=== PATIENT | male | born 1970 ===

== ENCOUNTER 2016-12-13 09:48 | Inpatient (IN) | payer MEDICAID ==
[2016-12-13] MEDS ORDERED: Sodium Chloride 0.9% 1,000 ML IV ONE (10:56)
[2016-12-13 11:17] LABS: BASO # 0.1 K/uL (0.0-0.2); EOS # 0.4 K/uL (0.0-0.7); EOS % 5.6 % (0.0-4.0); HEMATOCRIT 42.4 % (35.0-51.0); LYMPH # 1.5 K/uL (1.0-4.3); LYMPH % 18.7 % (20.0-40.0); MEAN CELL VOLUME 104.7 fL (80.0-94.0); MEAN CORPUSCULAR HGB CONC 33.4 g/dL (33.0-37.0); MEAN PLATELET VOLUME 7.3 fL (7.2-11.7); MONO % 12.5 % (0.0-10.0); RED CELL DISTRIBUTION WIDTH 14.1 % (11.5-14.5)
[2016-12-13] MEDS ORDERED: Sodium Chloride 0.9% 1,000 ML ONE (11:20)
[2016-12-13 11:21] LABS: URINE BILIRUBIN NEGATIVE (NEGATIVE); URINE BLOOD NEGATIVE (NEGATIVE); URINE COLOR Colorless (YELLOW); URINE GLUCOSE (UA) NORMAL (Normal); URINE KETONE NEGATIVE (NEGATIVE); URINE LEUKOCYTE ESTERASE NEG Leu/uL (Negative); URINE PROTEIN NEGATIVE (NEGATIVE); URINE UROBILINOGEN NORMAL mg/dL (0.2-1.0)
[2016-12-13 11:22] LABS: CHLORIDE 97 mmol/L (98-107); SODIUM 138 mmol/L (132-148)
[2016-12-13 11:24] LABS: BILIRUBIN,TOTAL 0.7 mg/dL (0.2-1.3); GFR AFRICAN-AMERICAN > 60
[2016-12-13 11:25] LABS: ALB/GLOB RATIO 1.7 (1.0-2.1); ALKALINE PHOSPHATASE 59 U/L (38-126); ALT/SGPT 89 U/L (21-72); AST/SGOT 124 U/L (17-59); BLOOD UREA NITROGEN 7 mg/dL (9-20); CALCIUM 8.6 mg/dl (8.6-10.4); CARBON DIOXIDE 24 mmol/L (22-30); GLUCOSE,RANDOM 94 mg/dL (75-110); TOTAL PROTEIN 8.6 g/dL (6.3-8.3)
[2016-12-13 11:26] LABS: ALCOHOL SERUM 265 mg/dl (0-10)
--- NOTE | 2016-12-13 12:26 | CT ---
PROCEDURE: CT HEAD WITHOUT CONTRAST. HISTORY: head injury two days ago r/o bleed COMPARISON: None available. TECHNIQUE: Axial computed tomography images were obtained through the head/brain without intravenous contrast. Radiation dose: Total exam DLP = 850.68 mGy-cm. This CT exam was performed using one or more of the following dose reduction techniques: Automated exposure control, adjustment of the mA and/or kV according to patient size, and/or use of iterative reconstruction technique. FINDINGS: HEMORRHAGE: No intracranial hemorrhage. BRAIN: No mass effect or edema. The haji-white matter differentiation appears intact. Please note that MRI with diffusion imaging is more sensitive in the detection of acute ischemic event. VENTRICLES: No hydrocephalus. CALVARIUM: Unremarkable. PARANASAL SINUSES: Unremarkable as visualized. No significant inflammatory changes. MASTOID AIR CELLS: Unremarkable as visualized. No inflammatory changes. OTHER FINDINGS: None. IMPRESSION: No acute intracranial pathology identified.
--- NOTE | 2016-12-13 12:37 | CT ---
CT orbits without IV contrast Indication: facial injuries, r/o orbital/facial fx Comparison: None available Technique: Axial computed tomography images were obtained of the orbits without the use of intravenous contrast. Coronal and sagittal reformatted images were generated and reviewed. This CT exam was performed using 1 or more of the falling dose reduction techniques: Automated exposure control, adjustment of the MAA and/or kV according to patient size, and/or use of iterative reconstruction technique. Radiation dose: Total exam DLP = 872.87 mGy-cm. Findings: The facial bones appear intact without acute fracture. The orbits appear intact. The temporomandibular joints are located. The mastoid air cells appear clear without air-fluid levels. Mild mucosal thickening of bilateral maxillary sinuses and ethmoid air cells. The remainder of the paranasal sinuses appear clear. No air-fluid levels. Limited visualization of the brain appears grossly unremarkable. Impression: No acute fracture identified. Incidental findings as above.
--- NOTE | 2016-12-13 12:57 | C.PDOC ---
History Of Present Illness 46-year-old male presents to the emergency department requesting detox from alcohol. Patients last drink was at 04:00 this morning. Patient has Hx of withdrawal seizures, and he had one two days ago - fell on his face a the tune. Patient currently complaining of a headache. He denies sensory changes, extremity weakness, fever, chest pain, SOB, abdominal pain, nausea/vomiting. Time Seen by Provider: 12/13/16 10:23 Chief Complaint (Nursing): Substance Abuse History Per: Patient History/Exam Limitations: no limitations Modifying Factor(s): Alcohol Severity: Moderate Past Medical History Reviewed: Historical Data, Nursing Documentation, Vital Signs Vital Signs: Last Vital Signs Temp 97.9 F 12/18/16 13:08 Pulse 83 12/18/16 13:08 Resp 18 12/18/16 13:08 BP 124/83 12/18/16 13:08 Pulse Ox 99 12/18/16 13:08 - Medical History PMH: Seizures (alcohol induced) Family History: States: No Known Family Hx - Social History Hx Alcohol Use: Yes Hx Substance Use: Yes - Immunization History Hx Tetanus Toxoid Vaccination: No Review Of Systems Except As Marked, All Systems Reviewed And Found Negative. Cardiovascular: Negative for: Chest Pain, Palpitations Respiratory: Negative for: Shortness of Breath Gastrointestinal: Negative for: Nausea, Vomiting, Abdominal Pain, Diarrhea Musculoskeletal: Negative for: Neck Pain, Back Pain Neurological: Positive for: Seizures, Headache. Negative for: Weakness, Numbness, Incoordination, Change in Speech, Confusion, Altered Mental Status, Dizziness Physical Exam - Physical Exam Appears: Well, Non-toxic, No Acute Distress Skin: Warm, Dry, No Rash, Other Head: Normacephalic, No Swelling, No Laceration, Other (B/L periorbital echymoses, nontender to palpation) Eye(s): bilateral: Normal Inspection, PERRL, EOMI (No pain with EOM movement.), Other (Subconjunctival hemorrhages B/L) Ear(s): Bilateral: Other ((-) Ibarra sign) Nose: Normal, No Epistaxis, No Deformity, No Tenderness Tongue: Normal Appearing, No Laceration Lips: Normal Appearing, No Laceration Neck: Normal, Normal ROM, No Midline Cervical Tenderness, No Paracervical Tenderness, No Step Off Deformity, Supple Cardiovascular: Rhythm Regular Respiratory: Normal Breath Sounds, No Rales, No Rhonchi, No Wheezing Extremity: Normal ROM, No Tenderness, No Deformity, No Swelling Extremity: Bilateral: Normal Color And Temperature, Normal ROM Neurological/Psych: Oriented x3 Gait: Steady ED Course And Treatment - Laboratory Results Result Diagrams: 12/13/16 11:03 12/13/16 11:03 O2 Sat by Pulse Oximetry: 100 (RA) Pulse Ox Interpretation: Normal - CT Scan/US ct head' Other Rad Studies (CT/US): Read By Radiologist, Radiology Report Reviewed CT/US Interpretation: Accession No. : [id number]. Patient Name / ID : CHIKI KEYES / [id number]. Exam Date : 12/13/2016 11:47:44 ( Approved ). Study Comment : Sex / Age : M / 46Y. Creator : Debby Davidson MD. Dictator : Debby Davidson MD. Structural Steel Erector : Chucking Machine Set Up Operator Tool : Debby Davidson MD. Approver2 : Report Date : 12/13/2016 12:24:35. My Comment : . PROCEDURE: CT HEAD WITHOUT CONTRAST. HISTORY: head injury two days ago r/o bleed. COMPARISON: None available. TECHNIQUE: Axial computed tomography images were obtained through the head/brain without intravenous contrast. Radiation dose: Total exam DLP = 850.68 mGy-cm. This CT exam was performed using one or more of the following dose reduction techniques: Automated exposure control, adjustment of the mA and/or kV according to patient size, and/ or use of iterative reconstruction technique. FINDINGS: HEMORRHAGE: No intracranial hemorrhage. BRAIN: No mass effect or edema. The haji-white matter differentiation appears intact. Please note that MRI with diffusion imaging is more sensitive in the detection of acute ischemic event. VENTRICLES : No hydrocephalus. CALVARIUM: Unremarkable. PARANASAL SINUSES: Unremarkable as visualized. No significant inflammatory changes. MASTOID AIR CELLS: Unremarkable as visualized. No inflammatory changes. OTHER FINDINGS: None. IMPRESSION: No acute intracranial pathology identified. CT ORBIT Other Rad Studies (CT/US): Read By Radiologist, Radiology Report Reviewed CT/US Interpretation: Accession No. : [id number]. Patient Name / ID : CHIKI KEYES / [id number]. Exam Date : 12/13/2016 11:50:23 ( Approved ). Study Comment : Sex / Age : M / 46Y. Creator : Debby Davidson MD. Dictator : Debby Davidson MD. Structural Steel Erector : Chucking Machine Set Up Operator Tool : Debby Davidson MD. Approver2 : Report Date : 12/13/2016 12:35:32. My Comment : . CT orbits without IV contrast. Indication: facial injuries, r/o orbital/ facial fx. Comparison: None available. Technique: Axial computed tomography images were obtained of the orbits without the use of intravenous contrast. Coronal and sagittal reformatted images were generated and reviewed. This CT exam was performed using 1 or more of the falling dose reduction techniques: Automated exposure control, adjustment of the MAA and/or kV according to patient size, and/or use of iterative reconstruction technique. Radiation dose : Total exam DLP = 872.87 mGy-cm. Findings: The facial bones appear intact without acute fracture. The orbits appear intact. The temporomandibular joints are located. The mastoid air cells appear clear without air-fluid levels. Mild mucosal thickening of bilateral maxillary sinuses and ethmoid air cells. The remainder of the paranasal sinuses appear clear. No air-fluid levels. Limited visualization of the brain appears grossly unremarkable. Impression: No acute fracture identified. Incidental findings as above. Progress Note: Blood work, UA, UDS, CT head/facial bones ordered and reviewed. Patient given IV Ns bolus, PO Librium. 12:55pm- Patient medically cleared. Pending crisis. 03:54PM- Patient discussed w/ crisis counselor, Mariel. States patient accepted for alcohol detox admission by Dr. Real. Disposition - Disposition Disposition: HOSPITALIZED Disposition Time: 15:56 Condition: STABLE - POA Present On Arrival: Falls Or Trauma - Clinical Impression Clinical Impression: Alcohol dependence, Closed head injury - Scribe Statement The provider has reviewed the documentation as recorded by the Scribsumeet Garcia All medical record entries made by the Scribe were at my direction and personally dictated by me. I have reviewed the chart and agree that the record accurately reflects my personal performance of the history, physical exam, medical decision making, and the department course for this patient. I have also personally directed, reviewed, and agree with the discharge instructions and disposition. Decision To Admit - Pt Status Changed To: Hospital Disposition Of: Inpatient - Admit Certification Admit to Inpatient:: After my assessment, the patient will require hospitalization for at least two midnights. This is because of the severity of symptoms shown, intensity of services needed, and/or the medical risk in this patient being treated as an outpatient. - InPatient: Physician Admission Certification: I certify that this patient requires 2 or more midnights of care for the following reason:: see notes - . Bed Request Type: Detox Admitting Physician: Martine Real Patient Diagnosis: Alcohol dependence
[2016-12-13] MEDS: Multiple Vitamins Tab PO SCH (17:25)
[2016-12-14] MEDS: Multiple Vitamins Tab PO SCH (08:59)
--- NOTE | 2016-12-14 13:50 | PCM.PSYCH ---
Initial Psychiatric Evaluation - Initial Psychiatric Evaluation Type of Admission: Voluntary Legal Status: Capacity Chief Complaint (in patient's own words): "I need to stop drinking" History of Present Illness and Precipitating Events: The patient is seen, chart reviewed and case discussed. This is a 46-year-old male, single with 2 children aged 18 and 27. The patient lives with his mother in [place] and he is on Social Security. He used to work as a cook about 3 years ago. The patient is here for alcohol detox and he was drinking 1 pint of vodka and half case of beer. He states he started drinking when he was 9 years old and had more than 10 detoxes and 10 rehabs. He doesn't go to AA. His longest sobriety was a little bit more than a year. He had seizures during wdw. He also smokes 1 pack per day cigarettes. He use to use heroine but he states he quit and last use was couple of years ago. Past psych history: Denies Family psych history: Denies Medical history: Alcohol-related seizures. He had shiners because of fall from seizures but had an orbital CT scan negative. Current Medications: Active Medications Generic Name Dose Route Start Last Admin Trade Name Freq PRN Reason Stop Dose Admin Chlordiazepoxide 25 mg 12/13/16 18:00 12/14/16 12:47 Librium PO 12/17/16 17:59 25 mg Q6 ADAM Administration Taper Chlordiazepoxide 25 mg 12/13/16 16:21 12/14/16 08:59 Librium PO 25 mg Q4H PRN Administration Alcohol Withdrawal Clonidine HCl 0.1 mg 12/13/16 16:21 Catapres PO Q4H PRN Symptoms of alcohol withdrawl Folic Acid 1 mg 12/13/16 16:30 12/14/16 08:59 Folic Acid PO 1 mg DAILY ADAM Administration Gabapentin 300 mg 12/13/16 18:00 12/14/16 08:59 Neurontin PO 300 mg BID ADAM Administration Hydroxyzine HCl 50 mg 12/13/16 16:22 Atarax PO Q6H PRN Anxiety Ibuprofen 600 mg 12/13/16 16:22 12/14/16 08:59 Motrin Tab PO 600 mg Q6H PRN Administration Pain, moderate (4-7) Multivitamins 1 tab 12/13/16 16:30 12/14/16 08:59 Hexavitamin PO 1 tab DAILY ADAM Administration Nicotine 1 patch 12/14/16 10:45 12/14/16 10:39 Nicoderm Cq TD 1 patch DAILY ADAM Administration Quetiapine Fumarate 50 mg 12/14/16 22:00 Seroquel PO HS ADAM Thiamine HCl 100 mg 12/13/16 16:30 12/14/16 08:59 Vitamin B1 Tab PO 100 mg DAILY ADAM Administration Trazodone HCl 100 mg 12/13/16 16:30 12/14/16 00:04 Desyrel PO 100 mg HS PRN Administration Insomnia Past Psychiatric History - Past Psychiatric History Previous Treatment History: None Pertinent Medical Hx (Current Medical&Sleep Prob, Allergies): Allergies Allergy/AdvReac Type Severity Reaction Status Date / Time No Known Allergies Allergy Verified 12/13/16 09:51 No Known Home Med 12/13/16 Review of Systems - Neurological Neurological: UNREMARKABLE - Psychiatric Psychiatric: Abnormal Sleep Pattern, Anxiety. absent: Hallucinations, Homicidal Ideation, Suicidal Ideation Mental Status Examination - Personal Presentation Personal Presentation: Looks older than stated age - Affect Affect: Constricted - Motor Activity Motor Activity: Calm - Reliability in Providing Information Reliability in Providing Information: Fair - Speech Speech: Organized - Mood Mood: Anxious - Formal Thought Process Formal Thought Process: No Impairment - Cognitive Functions Orientation: Person, Place, Situation, Time Sensorium: Alert Attention/Concentration: Easily distracted Estimate of Intelligence: Average Judgement: Intact, as evidence by: Insight regarding need for hospitalization Memory: Recent intact, as evidence by: Ability to recall events of the day, Remote impaired as evidenced by: Inability to recall historical events - Risk Risk: Seizure, Withdrawal, Diminished functioning - Strength & Assets Inventory Strength & Assets Inventory: Cooperative - Limitations Limitations: Living alone DSM 5 DX - DSM 5 DSM 5 Diagnosis: Alcohol withdrawal Alcohol use d/o - severe Tobacco use d/o - severe Opioid use d/o - in remission - Recommended/Plan of Treatment Treatment Recommendations and Plan of Treatment: Alcohol: Librium detox Gabapentin As needed meds gabapentin Attend groups and activities. MT and CBT Tobacco: Patch MT for abstinence 33 min Projected ELOS: 4 days Prognosis: good Discharge Plan and Discharge Criteria: No wdw sxs refer to IOP or rehab, consider naltrexone/vivitrol or topamax - Smoking Cessation Smoking Cessation Initiated: Yes
[2016-12-15] MEDS: Multiple Vitamins Tab PO SCH (09:04)
--- NOTE | 2016-12-15 15:32 | PCM.PYCHPN ---
Psychiatric Progress Note - Psychiatric Progress Note Patient seen today, length of contact: 16 min Patient Chief Complaint: "I am anxious" Problems Identified/Issues Discussed: The pt is seen, chart reviewed, case discussed with staff. The pt is compliant with medications and reports no side-effects. Symptoms are improving but needs more time to stabilize. He has witnessed another pt's seizure and that made him more anxious. Support given After care discussed, support and psychoeducation given. Medication Change: Yes Medical Record Reviewed: Yes Mental Status Examination - Cognitive Function Orientation: Person, Place, Situation, Time Memory: Intact Attention: WNL Concentration: Poor Association: WNL Fund of Knowledge: WNL - Mood Mood: Anxious - Affect Affect: Constricted - Speech Speech: Appropriate - Formal Thought Process Formal Thought Process: No Impairment - Suicidal Ideation Suicidal Ideation: No - Homicidal Ideation Homicidal Ideation: No Goal/Treatment Plan - Goal/Treatment Plan Need for Continued Stay: Discharge may exacerbated symptoms, Severe functional impairment Progress Toward Problem(s) and Goals/Treatment Plan: Alcohol: Librium detox Gabapentin As needed meds gabapentin Attend groups and activities. AK and CBT Tobacco: Patch AK for abstinence Estimated Date of D/C: 12/18/16
[2016-12-16] MEDS: Multiple Vitamins Tab PO SCH (09:32)
--- NOTE | 2016-12-16 12:10 | PCM.PYCHPN ---
Psychiatric Progress Note - Psychiatric Progress Note Patient seen today, length of contact: 17 min Patient Chief Complaint: "Still withdrawing" Problems Identified/Issues Discussed: The pt is seen, chart reviewed, case discussed with staff. The pt is compliant with medications and reports no side-effects. Symptoms of withdrawal are slowly improving but needs more time to stabilize. Detox schedule is adjusted to continue one more day as he is still very shaky and even somewhat more confused/forgetful today. After care discussed, support and psychoeducation given. Not as depressed or anxious. Medication Change: Yes (detox changes daily) Medical Record Reviewed: Yes Mental Status Examination - Cognitive Function Orientation: Person, Place, Situation, Time Memory: Intact Attention: WNL Concentration: Poor Association: WNL Fund of Knowledge: WNL - Mood Mood: Anxious - Affect Affect: Constricted - Speech Speech: Appropriate - Formal Thought Process Formal Thought Process: No Impairment - Suicidal Ideation Suicidal Ideation: No - Homicidal Ideation Homicidal Ideation: No Goal/Treatment Plan - Goal/Treatment Plan Need for Continued Stay: Discharge may exacerbated symptoms, Severe functional impairment Progress Toward Problem(s) and Goals/Treatment Plan: Alcohol: Librium detox adjusted Gabapentin As needed meds gabapentin Attend groups and activities. NM and CBT Tobacco: Patch NM for abstinence Estimated Date of D/C: 12/18/16
[2016-12-17] MEDS: Multiple Vitamins Tab PO SCH (09:23)
--- NOTE | 2016-12-17 13:16 | PCM.PYCHPN ---
Psychiatric Progress Note - Psychiatric Progress Note Patient seen today, length of contact: 16 min Patient Chief Complaint: "Shaky" Problems Identified/Issues Discussed: The pt is seen, chart reviewed and case discussed. The pt is improving SLOWY with medications and has breakthru sxs. Detox adjusted again, to end on Tuesday am. No SEs from meds Support and psychoed given IL and CBt used After care discussed Medication Change: Yes (detox changes daily) Medical Record Reviewed: Yes Mental Status Examination - Cognitive Function Orientation: Person, Place, Situation, Time Memory: Intact Attention: WNL Concentration: Poor Association: WNL Fund of Knowledge: WNL - Mood Mood: Anxious - Affect Affect: Constricted - Speech Speech: Appropriate - Formal Thought Process Formal Thought Process: No Impairment - Suicidal Ideation Suicidal Ideation: No - Homicidal Ideation Homicidal Ideation: No Goal/Treatment Plan - Goal/Treatment Plan Need for Continued Stay: Discharge may exacerbated symptoms, Severe functional impairment Progress Toward Problem(s) and Goals/Treatment Plan: Alcohol: Librium detox adjusted Gabapentin As needed meds gabapentin Attend groups and activities. IL and CBT Tobacco: Patch IL for abstinence Estimated Date of D/C: 12/19/16
--- NOTE | 2016-12-18 08:18 | PCM.PYCHPN ---
Psychiatric Progress Note - Psychiatric Progress Note Patient seen today, length of contact: 16 min Patient Chief Complaint: I'm having withdrawal symptoms Problems Identified/Issues Discussed: Patient seen and evaluated, chart reviewed and discussed with the nurse. Patient reports improvement in his anxiety and withdrawal symptoms. However he still reports shakes and headaches. He denies any depressive or psychotic symptoms. He is taking medications and denies any side effects. Patient is scheduled to be discharge tomorrow. Supportive therapy was given. Medication Change: Yes (detox changes daily) Medical Record Reviewed: Yes Mental Status Examination - Cognitive Function Orientation: Person, Place, Situation, Time Memory: Intact Attention: WNL Concentration: Poor Association: WNL Fund of Knowledge: WNL - Mood Mood: Anxious - Affect Affect: Constricted - Speech Speech: Appropriate, Soft - Formal Thought Process Formal Thought Process: No Impairment - Suicidal Ideation Suicidal Ideation: No - Homicidal Ideation Homicidal Ideation: No Goal/Treatment Plan - Goal/Treatment Plan Need for Continued Stay: Discharge may exacerbated symptoms, Severe functional impairment Progress Toward Problem(s) and Goals/Treatment Plan: Alcohol: Librium detox adjusted Gabapentin As needed meds gabapentin Attend groups and activities. AK and CBT Tobacco: Patch AK for abstinence Estimated Date of D/C: 12/19/16 - Smoking Cessation Smoking Cessation Initiated: No
[2016-12-18] MEDS: Multiple Vitamins Tab PO SCH (09:02)
[2016-12-19] MEDS: Multiple Vitamins Tab PO SCH (09:16)
[2016-12-19 10:33] VITALS: RESP 18; TEMP 98.1; O2SAT 97
[2016-12-19 13:41] VITALS: BP 120/87; PULSE 90
--- NOTE | 2016-12-19 13:45 | PCM.PYCHDC ---
Mental Status Examination - Mental Status Examination Orientation: Person, Place, Situation, Time Memory: Intact Mood: Neutral Affect: Constricted Speech: Soft Attention: WNL Concentration: WNL Association: WNL Fund of Knowledge: WNL Formal Thought Process: No Impairment Description of patient's judgement and insight: GOOD, FAIR Psychotic Thoughts and Behaviors: Denies any AVH Suicidal Ideation: No Current Homicidal Ideation?: No Discharge Summary - Discharge Note Reason for Hospitalization: The patient is seen, chart reviewed and case discussed. This is a 46-year-old male, single with 2 children aged 18 and 27. The patient lives with his mother in [place] and he is on Social Security. He used to work as a cook about 3 years ago. The patient is here for alcohol detox and he was drinking 1 pint of vodka and half case of beer. He states he started drinking when he was 9 years old and had more than 10 detoxes and 10 rehabs. He doesn't go to AA. His longest sobriety was a little bit more than a year. He had seizures during wdw. He also smokes 1 pack per day cigarettes. He use to use heroine but he states he quit and last use was couple of years ago. Consultations:: List each consultation separately and include: 1. Reason for request. 2. Findings. 3. Follow-up Summary of Hospital Course include:: 1. Description of specific treatment plan utilized for patients during their course of treatmen. 2. Summarize the time- course for resolution of acute symptoms and/or regressed behaviors. 3. Describe issues identified and worked on during hospitalization. 4. Describe medication utilized. 5. Describe medical problems identified and treated. 6. Reassessment of suicide risk Summary of Hospital Course: During the course of his stay, patient (pt) started progressively improving and he no longer remained anxious and irritable. He tolerated the withdrawal protocol very well. He didnt have any shakes, sweating, tremors or cramps or any other withdrawal symptoms upon discharge. He started attending groups and meetings and started socializing. He denied any feelings of hopelessness, helplessness, and worthlessness, denied any problem with the sleep or appetite, denied suicidal ideation or homicidal ideation. Pt denied any auditory or visual hallucinations. Patient remained calm and cooperative and remained compliant with the medications. Patient tolerated the detox medications very well and denied any side effects. - Final Diagnosis (DSM 5) Condition upon Discharge: STABLE DSM 5: Alcohol withdrawal Alcohol use d/o - severe Tobacco use d/o - severe Opioid use d/o - in remission Disposition: HOME/ ROUTINE Follow-up Treatment Plan: Education: Pt was educated and counseled about the risks and benefits of taking and not taking medications. Pt was educated and counseled about the risks of drinking and abusing drugs. Pt was educated and counseled to go to the ER or call 911 if pt develop suicidal ideation or homicidal ideation, worsening of symptoms or severe side effects of the meds. Prescriptions/Medication Reconciliation: Gabapentin [Neurontin] 400 mg PO TID #90 cap QUEtiapine [SEROquel] 50 mg PO HS #30 tab traZODone [Desyrel] 100 mg PO HS PRN #30 tab PRN Reason: Insomnia - Smoking Cessation Smoking Cessation Medication prescribed: No - Antipsychotic Medications Pt discharged on 2 or more routine antipsychotic medications: No
== END 2016-12-19 13:15 | disposition home or self-care (01) | DRG 744 ==
LOC: C.ER 09:48 → C.7D 15:56
PROVIDERS: ADMIT Psychiatry & Neurology Psychiatry; ATTEND Psychiatry & Neurology Psychiatry
PROC: HZ2ZZZZ Detoxification Services for Substance Abuse Treatment (ICD-10-PCS; principal; 2016-12-13)
PROC: HZ46ZZZ Group Counseling for Substance Abuse Treatment, Psychoeducation (ICD-10-PCS; 2016-12-13)
PROC: HZ90ZZZ Pharmacotherapy for Substance Abuse Treatment, Nicotine Replacement (ICD-10-PCS; 2016-12-13)
DX: F10.230 Alcohol dependence with withdrawal, uncomplicated (principal); F11.21 Opioid dependence, in remission; F17.210 Nicotine dependence, cigarettes, uncomplicated; S09.90XA Unspecified injury of head, initial encounter; R56.9 Unspecified convulsions; W19.XXXA Unspecified fall, initial encounter; F41.9 Anxiety disorder, unspecified; Z91.81 History of falling; Y92.9 Unspecified place or not applicable

== ENCOUNTER 2017-05-27 20:29 | Emergency (ER) | payer SELFPAY ==
--- NOTE | 2017-05-27 20:45 | C.PDOC ---
History Of Present Illness Patient brought in via EMS after being found intoxicated in public. Patient states he thinks he might have fallen over and hit his head. Denies headache, dizziness, or vomiting. Time Seen by Provider: 05/27/17 20:44 Chief Complaint (Nursing): Substance Abuse History Per: Patient History/Exam Limitations: no limitations Onset/Duration Of Symptoms: Hrs Current Symptoms Are (Timing): Still Present Suicide/Self Injury Attempted (Context): None Modifying Factor(s): Alcohol Severity: Mild Pain Scale Rating Of: 2 Associated Symptoms: denies: Depression, Suicidal Thoughts, Suicidal Plan Involuntary Hold By: None Recent travel outside of the [place]: No Past Medical History Reviewed: Historical Data, Nursing Documentation, Vital Signs Vital Signs: Last Vital Signs Temp 97.9 F 05/27/17 23:47 Pulse 89 05/27/17 23:47 Resp 20 05/27/17 23:47 BP 113/79 05/27/17 23:47 Pulse Ox 99 05/27/17 23:47 - Medical History PMH: Seizures (alcohol induced) Surgical History: No Surg Hx - [facility] Procedures DETOXIFICATION SERVICES FOR SUBSTANCE ABUSE TREATMENT (12/13/16) GROUP JOB PRINTER FOR SUBSTANCE ABUSE TREATMENT, PSYCHOEDUCATION (12/13/16) PHARMACOTHERAPY FOR SUBSTANCE ABUSE, NICOTINE REPLACE (12/13/16) Family History: States: No Known Family Hx - Social History Hx Alcohol Use: Yes Hx Substance Use: Yes - Immunization History Hx Tetanus Toxoid Vaccination: No Review Of Systems Gastrointestinal: Negative for: Nausea, Vomiting Neurological: Negative for: Headache, Dizziness Physical Exam - Physical Exam Appears: Non-toxic, No Acute Distress, Other (ETOH on breath) Skin: Warm, Dry Head: Normacephalic, Abrasion (Small over forehead) Oral Mucosa: Moist Chest: Symmetrical Cardiovascular: Rhythm Regular Respiratory: No Rales, No Rhonchi, No Wheezing Gastrointestinal/Abdominal: Soft, No Tenderness Neurological/Psych: Oriented x3 ED Course And Treatment - Laboratory Results Result Diagrams: 05/27/17 20:59 05/27/17 20:59 O2 Sat by Pulse Oximetry: 96 (Room air) Pulse Ox Interpretation: Normal Progress Note: CT head, CT orbits/facials, blood work, and urinalysis ordered. Reevaluation Time: 05:22 Reassessment Condition: Improved Disposition Counseled Patient/Family Regarding: Studies Performed, Diagnosis, Need For Followup - Disposition Referrals: [facility] [Outside] Disposition: HOME/ ROUTINE Disposition Time: 20:45 Condition: FAIR Instructions: Alcohol Intoxication (DC) Forms: [facility] (Portuguese) - Clinical Impression Clinical Impression: Alcohol dependence, Alcohol intoxication - Scribe Statement The provider has reviewed the documentation as recorded by the Scribe Ant Sadler All medical record entries made by the Scribe were at my direction and personally dictated by me. I have reviewed the chart and agree that the record accurately reflects my personal performance of the history, physical exam, medical decision making, and the department course for this patient. I have also personally directed, reviewed, and agree with the discharge instructions and disposition.
[2017-05-27 21:06] LABS: BASO # 0.1 K/uL (0.0-0.2); BASO % 1.3 % (0.0-2.0); EOS # 0.2 K/uL (0.0-0.7); EOS % 2.9 % (0.0-4.0); HEMATOCRIT 40.2 % (35.0-51.0); LYMPH # 0.9 K/uL (1.0-4.3); LYMPH % 15.9 % (20.0-40.0); MEAN CELL VOLUME 103.3 fL (80.0-94.0); MEAN CORPUSCULAR HEMOGLOBIN 34.6 pg (27.0-31.0); MEAN CORPUSCULAR HGB CONC 33.5 g/dL (33.0-37.0); MEAN PLATELET VOLUME 7.2 fL (7.2-11.7); MONO # 0.5 K/uL (0.0-0.8); MONO % 9.9 % (0.0-10.0); NRBC % 0.1 % (0.0-2.0); RED CELL DISTRIBUTION WIDTH 13.4 % (11.5-14.5); WHITE BLOOD COUNT 5.4 K/uL (4.8-10.8)
[2017-05-27 21:16] LABS: URINE BACTERIA RARE (<OCC); URINE BILIRUBIN NEGATIVE (NEGATIVE); URINE COLOR Straw (YELLOW); URINE GLUCOSE (UA) NORMAL (Normal); URINE KETONE NEGATIVE (NEGATIVE); URINE LEUKOCYTE ESTERASE NEG Leu/uL (Negative); URINE PROTEIN NEGATIVE (NEGATIVE); URINE UROBILINOGEN NORMAL mg/dL (0.2-1.0)
[2017-05-27 21:19] LABS: URINE BLOOD TRACE (NEGATIVE)
[2017-05-27 21:51] LABS: ALB/GLOB RATIO 1.5 (1.0-2.1); ALKALINE PHOSPHATASE 83 U/L (38-126); ALT/SGPT 87 U/L (21-72); AST/SGOT 161 U/L (17-59); BILIRUBIN,TOTAL 0.8 mg/dL (0.2-1.3); BLOOD UREA NITROGEN 16 mg/dL (9-20); CALCIUM 7.8 mg/dl (8.6-10.4); CARBON DIOXIDE 21 mmol/L (22-30); CHLORIDE 100 mmol/L (98-107); GFR AFRICAN-AMERICAN > 60; GLUCOSE,RANDOM 95 mg/dL (75-110); POTASSIUM 3.8 mmol/L (3.6-5.2); SODIUM 140 mmol/L (132-148); TOTAL PROTEIN 7.8 g/dL (6.3-8.3)
[2017-05-27 22:09] LABS: ALCOHOL SERUM 416 mg/dl (0-10)
--- NOTE | 2017-05-27 22:58 | CT ---
EXAM: CT Head Without Intravenous Contrast EXAM DATE/TIME: 05/27/2017 8:45 PM CLINICAL HISTORY: 46 years old, male; Injury or trauma; Fall; Initial encounter; Abrasion; Forehead TECHNIQUE: Axial computed tomography images of the head/brain without intravenous contrast. All CT scans at this facility use one or more dose reduction techniques, viz.: automated exposure control; ma/kV adjustment per patient size (including targeted exams where dose is matched to indication; i.e. head); or iterative reconstruction technique. COMPARISON: No relevant prior studies available. FINDINGS: Frontal atrophy is present. No intracranial hemorrhage. No intracranial edema. Trace mucosal thickening in the ethmoid sinuses. No fluid in the mastoid air cells. No depressed fractures. IMPRESSION: No acute intracranial injury.
--- NOTE | 2017-05-27 23:33 | CT ---
EXAM: CT Orbits Without Intravenous Contrast EXAM DATE/TIME: 05/27/2017 8:45 PM CLINICAL HISTORY: 46 years old, male; Injury or trauma; Fall; Initial encounter; Concussion /head injury; Loss of consciousness TECHNIQUE: Axial computed tomography images of the orbits without intravenous contrast. All CT scans at this facility use one or more dose reduction techniques, viz.: automated exposure control; ma/kV adjustment per patient size (including targeted exams where dose is matched to indication; i.e. head); or iterative reconstruction technique. COMPARISON: No relevant prior studies available. FINDINGS: Trace mucosal thickening of the maxillary and ethmoid sinuses. No fractures. Small subcutaneous soft tissue swelling at the base of the mandible. IMPRESSION: No acute findings.
[2017-05-28 06:08] VITALS: BP 122/73; PULSE 75; RESP 16; TEMP 98.5; O2SAT 97
== END 2017-05-28 06:44 | disposition home or self-care (01) ==
LOC: C.ER 20:29
DX: F10.229 Alcohol dependence with intoxication, unspecified (principal); Y90.8 Blood alcohol level of 240 mg/100 ml or more
CPT/HCPCS: 70450; 70480; 80053; 81001; 85025; 99285; G0480

== ENCOUNTER 2017-08-08 09:32 | Inpatient (IN) | payer MEDICAID, OTHER ==
--- NOTE | 2017-08-08 10:13 | C.PDOC ---
History Of Present Illness 46 yo male, hx of seizures, presetns with requesting detox. last drank and used last night at 10 pm. feels "a little shaky". uses heroin and alcohol. no si/hi/ hallucinations. no other complaints Time Seen by Provider: 08/08/17 09:49 Chief Complaint (Nursing): Substance Abuse Past Medical History Reviewed: Historical Data, Nursing Documentation, Vital Signs Vital Signs: Last Vital Signs Temp 98.0 F 08/08/17 13:25 Pulse 78 08/08/17 13:25 Resp 16 08/08/17 13:25 BP 138/79 08/08/17 13:25 Pulse Ox 100 08/08/17 17:27 - Medical History PMH: Seizures (alcohol induced) Denies: Diabetes, Hepatitis, HIV, HTN, Chronic Kidney Disease, Sexually Transmitted Disease - [facility] Procedures DETOXIFICATION SERVICES FOR SUBSTANCE ABUSE TREATMENT (12/13/16) GROUP PURSE SEINING HAND FOR SUBSTANCE ABUSE TREATMENT, PSYCHOEDUCATION (12/13/16) PHARMACOTHERAPY FOR SUBSTANCE ABUSE, NICOTINE REPLACE (12/13/16) Family History: States: Unknown Family Hx - Social History Hx Alcohol Use: Yes Hx Substance Use: Yes (heroin) - Immunization History Hx Tetanus Toxoid Vaccination: No Review Of Systems Except As Marked, All Systems Reviewed And Found Negative. Physical Exam - Physical Exam Appears: Well, No Acute Distress Skin: Normal Color, Warm, Dry Eye(s): bilateral: Normal Inspection, PERRL, EOMI Nose: Normal Throat: Normal Neck: Normal Cardiovascular: Rhythm Regular Respiratory: Normal Breath Sounds Gastrointestinal/Abdominal: Normal Exam Back: Normal Inspection Extremity: Normal ROM Neurological/Psych: Oriented x3, Normal Speech, Normal Cognition, Normal Cranial Nerves, Normal Motor, Normal Sensation, Other (no tremors) ED Course And Treatment - Laboratory Results Result Diagrams: 08/08/17 10:32 08/08/17 10:32 O2 Sat by Pulse Oximetry: 100 Medical Decision Making Medical Decision Making: requseting detox- labs pending for medical clearance 320: medically cleared, observed 6 hours. clinically sober, cooperative, additional librium dosed as per dr alcala. Disposition - Disposition Disposition: HOSPITALIZED Disposition Time: 04:00 Condition: STABLE - Clinical Impression Clinical Impression: Alcohol dependence Decision To Admit - Pt Status Changed To: Hospital Disposition Of: Inpatient - Admit Certification Admit to Inpatient:: After my assessment, the patient will require hospitalization for at least two midnights. This is because of the severity of symptoms shown, intensity of services needed, and/or the medical risk in this patient being treated as an outpatient. - InPatient: Physician Admission Certification: I certify that this patient requires 2 or more midnights of care for the following reason:: needs detox - . Bed Request Type: Detox Admitting Physician: Martine Alcala Patient Diagnosis: Alcohol dependence
[2017-08-08 10:43] LABS: BASO # 0.1 K/uL (0.0-0.2); BASO % 1.3 % (0.0-2.0); EOS # 0.1 K/uL (0.0-0.7); EOS % 1.3 % (0.0-4.0); HEMOGLOBIN 14.7 g/dL (12.0-18.0); LYMPH # 0.5 K/uL (1.0-4.3); LYMPH % 10.2 % (20.0-40.0); MEAN CELL VOLUME 104.2 fL (80.0-94.0); MEAN CORPUSCULAR HEMOGLOBIN 36.3 pg (27.0-31.0); MEAN CORPUSCULAR HGB CONC 34.9 g/dL (33.0-37.0); MEAN PLATELET VOLUME 6.8 fL (7.2-11.7); MONO # 0.6 K/uL (0.0-0.8); MONO % 11.9 % (0.0-10.0); NEUT # 3.7 K/uL (1.8-7.0); NEUT % 75.3 % (50.0-75.0); NRBC % 0.1 % (0.0-2.0); RBC 4.05 Mil/uL (4.40-5.90); RED CELL DISTRIBUTION WIDTH 13.2 % (11.5-14.5); WHITE BLOOD COUNT 4.9 K/uL (4.8-10.8)
[2017-08-08 10:45] LABS: URINE BILIRUBIN NEGATIVE (NEGATIVE); URINE BLOOD NEGATIVE (NEGATIVE); URINE CLARITY Clear (Clear); URINE COLOR Colorless (YELLOW); URINE GLUCOSE (UA) NORMAL (Normal); URINE LEUKOCYTE ESTERASE NEG Leu/uL (Negative); URINE NITRATE NEGATIVE (NEGATIVE); URINE PROTEIN NEGATIVE (NEGATIVE); URINE UROBILINOGEN NORMAL mg/dL (0.2-1.0)
[2017-08-08 10:57] LABS: ALB/GLOB RATIO 1.2 (1.0-2.1); ALBUMIN 4.5 g/dL (3.5-5.0); ALT/SGPT 52 U/L (21-72); AST/SGOT 82 U/L (17-59); BLOOD UREA NITROGEN 6 mg/dL (9-20); CALCIUM 8.9 mg/dl (8.6-10.4); GFR AFRICAN-AMERICAN > 60; GFR NON-AFRICAN AMERICAN > 60
[2017-08-08 11:34] LABS: BARBITURATES, UR NEGATIVE (NEGATIVE); BENZODIAZEPINES, UR NEGATIVE (NEGATIVE); PHENCYCLIDINE, UR NEGATIVE (NEGATIVE)
[2017-08-08 11:54] LABS: OPIATES, UR POSITIVE (NEGATIVE)
--- NOTE | 2017-08-08 16:03 | PCM.BM ---
<Gisela May - Last Filed: 08/08/17 16:01> Treatment Plan Problems - Problems identified on initial assessmt potiential for autonomic instability related to alcohol withdrawal Date Initiated: 08/08/17 Time Initiated: 16:02 Date resolved: 08/08/17 Assessment reference: NA Status: Active potiential for opiate withdrawal Date Initiated: 08/08/17 Time Initiated: 16:02 Date resolved: 08/08/17 Assessment reference: NA Status: Active Treatment assets and liabiliti Patient Assests: ADL independent, physically healthy Patient Liabilities: substance abuse, medical problems - Milieu Protocol Maintain good personal hygiene: daily Encourage regular showers, daily Remind patient to perform daily oral care, daily Assist patient to perform ADL's Maintain personal safety: every shift Educate patient to report safety concerns to staff, every shift Monitor environment for contraband/sharps Medication safety: Monitor for expected outcome, potential side effects: every shift, Assess barriers to learning: every shift, Assess readiness for medication education: every shift <Martine Real - Last Filed: 08/09/17 23:52> - Diagnosis (1) Opioid use disorder, severe, dependence Status: Acute Interventions: 08/09/17 23:51 * Assess 7x/week regarding severity of withdrawal * Educate regarding risks, benefits, side effects and alternatives of medications * Use Motivational Interviewing for abstinence * Use CBT for relapse prevention * Medication management for withdrawal symptoms * Encourage medication assisted treatment * (2) Alcohol dependence Status: Acute Interventions: 08/09/17 23:51 * Assess 7x/week regarding severity of withdrawal * Educate regarding risks, benefits, side effects and alternatives of medications * Use Motivational Interviewing for abstinence * Use CBT for relapse prevention * Medication management for withdrawal symptoms * Encourage medication assisted treatment *
[2017-08-08] MEDS ORDERED: Buprenorphine Hydrochloride 2 mg SL ONE ×2 (17:10→18:30)
[2017-08-08] MEDS: Multiple Vitamins Tab PO SCH (17:42)
[2017-08-09] MEDS: Multiple Vitamins Tab PO SCH (10:07)
[2017-08-09] MEDS: Buprenorphine Hydrochloride 2 mg SL SCH (10:08)
--- NOTE | 2017-08-09 10:26 | PCM.PSYCH ---
Initial Psychiatric Evaluation - Initial Psychiatric Evaluation Type of Admission: Voluntary Legal Status: Capacity Chief Complaint (in patient's own words): "not good" History of Present Illness and Precipitating Events: The patient is seen, chart reviewed and case discussed. This is a 46-year-old male, single with 2 children aged 18 and 27. The patient lives with his mother in [place] and he is on Social Security. 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 He states he started drinking when he was 9 years old and had more than 10 detoxes and 10 rehabs. He doesn't go to AA. His longest sobriety was a little bit more than a year. He had seizures only during wdw in the past. He also smokes 1/2 pack per day cigarettes. He uses heroin again; 3 bags intranasally. Past psych history: Denies Family psych history: Denies Medical history: Alcohol-related seizures. Current Medications: Active Medications Generic Name Dose Route Start Last Admin Trade Name Gloria PRN Reason Stop Dose Admin Buprenorphine HCl 8 mg 08/09/17 10:00 08/09/17 10:08 Subutex SL 08/13/17 09:59 8 mg DAILY ADAM Administration Taper Chlordiazepoxide 25 mg 08/08/17 17:07 08/08/17 22:03 Librium PO 25 mg Q4H PRN Administration Alcohol Withdrawal Chlordiazepoxide 25 mg 08/08/17 18:00 08/09/17 06:12 Librium PO 08/13/17 17:59 25 mg Q6H ADAM Administration Taper Clonidine HCl 0.1 mg 08/08/17 17:07 Catapres PO Q4H PRN Symptoms of alcohol withdrawl Folic Acid 1 mg 08/08/17 17:15 08/09/17 10:07 Folic Acid PO 1 mg DAILY ADAM Administration Hydroxyzine HCl 50 mg 08/08/17 17:10 Atarax PO Q6H PRN Anxiety Ibuprofen 600 mg 08/08/17 17:10 Motrin Tab PO Q6H PRN Pain, moderate (4-7) Multivitamins 1 tab 08/08/17 17:15 08/09/17 10:07 Hexavitamin PO 1 tab DAILY ADAM Administration Pneumococcal Polyvalent Vaccine 0.5 ml 08/10/17 17:04 Pneumovax 23 Vaccine IM 08/10/17 17:05 .ONCE ONE Thiamine HCl 100 mg 08/08/17 17:15 08/09/17 10:07 Vitamin B1 Tab PO 100 mg DAILY ADAM Administration Trazodone HCl 100 mg 08/08/17 17:07 08/08/17 22:03 Desyrel PO 100 mg HS PRN Administration Insomnia Past Psychiatric History - Past Psychiatric History Previous Treatment History: None Pertinent Medical Hx (Current Medical&Sleep Prob, Allergies): Allergies Allergy/AdvReac Type Severity Reaction Status Date / Time No Known Allergies Allergy Verified 08/08/17 09:46 No Known Home Med 08/08/17 Review of Systems - Psychiatric Psychiatric: Abnormal Sleep Pattern, Anxiety, Difficulty Concentrating. absent : Hallucinations, Homicidal Ideation, Paranoia, Suicidal Ideation Mental Status Examination - Personal Presentation Personal Presentation: Looks stated age - Affect Affect: Constricted - Motor Activity Motor Activity: Calm - Reliability in Providing Information Reliability in Providing Information: Good - Speech Speech: Organized - Mood Mood: Depressed - Formal Thought Process Formal Thought Process: No Impairment - Hallucinations/Delusions Hallucinations: Visual - Cognitive Functions Orientation: Person, Place, Situation, Time Sensorium: Alert Attention/Concentration: Attentive, Easily distracted Estimate of Intelligence: Average Judgement: Intact, as evidence by: Insight regarding need for hospitalization Memory: Recent intact, as evidence by: Ability to recall events of the day, Remote intact, as evidenced by: Abilit to recall sig. life events - Risk Risk: Withdrawal, Diminished functioning - Strength & Assets Inventory Strength & Assets Inventory: Cooperative DSM 5 DX - DSM 5 DSM 5 Diagnosis: Alcohol withdrawal Alcohol use d/o - severe opioid use d/o - severe Opioid withdrawal - Recommended/Plan of Treatment Treatment Recommendations and Plan of Treatment: Librium and subutex detox As needed medications All risks, benefits and alternatives of medications, including no medications, discussed and the patient understood and agreed. Attend groups and activities Supportive therapy and psychoeducation [place] for abstinence CBT for relapse prevention Encourage MAT Refer to rehab or IOP Attend self-help groups as well 34 min Projected ELOS: 4-5 days Prognosis: good w treatment - Smoking Cessation Smoking Cessation Initiated: Yes
[2017-08-10] MEDS: Buprenorphine Hydrochloride 2 mg SL SCH (09:31)
[2017-08-10] MEDS: Multiple Vitamins Tab PO SCH (09:31)
--- NOTE | 2017-08-10 13:05 | PCM.PYCHPN ---
Psychiatric Progress Note - Psychiatric Progress Note Patient seen today, length of contact: 16 min Patient Chief Complaint: "I am tremulous" Problems Identified/Issues Discussed: The pt is seen, chart reviewed, case discussed with staff. The pt is compliant with medications and reports no side-effects. Symptoms are improving but needs more time to stabilize. After care discussed, support and psychoeducation given Medication Change: Yes (detox changes daily) Medical Record Reviewed: Yes Mental Status Examination - Cognitive Function Orientation: Person, Place, Situation, Time Memory: Intact Attention: WNL Concentration: Poor Association: WNL Fund of Knowledge: WNL - Mood Mood: Depressed - Affect Affect: Constricted - Speech Speech: Appropriate - Formal Thought Process Formal Thought Process: No Impairment - Suicidal Ideation Suicidal Ideation: No - Homicidal Ideation Homicidal Ideation: No Goal/Treatment Plan - Goal/Treatment Plan Need for Continued Stay: Discharge may exacerbated symptoms, Severe functional impairment Progress Toward Problem(s) and Goals/Treatment Plan: Librium and subutex detox As needed medications All risks, benefits and alternatives of medications, including no medications, discussed and the patient understood and agreed. Attend groups and activities Supportive therapy and psychoeducation [place] for abstinence CBT for relapse prevention Encourage MAT Refer to rehab or IOP Attend self-help groups as well
[2017-08-10] MEDS ORDERED: Pneumococcal 23-Valent Vaccine IM ONE (17:04)
[2017-08-10] MEDS ORDERED: Influenza Vaccine 60 mcg/0.5 mL SYR (4YR UP) IM ONE (17:06)
[2017-08-11] MEDS: Multiple Vitamins Tab PO SCH (09:29)
[2017-08-11] MEDS: Buprenorphine Hydrochloride 2 mg SL SCH (09:29)
[2017-08-11] MEDS ORDERED: Magnesium Hydroxide Susp 30 ml UD PO ONE (13:52)
[2017-08-12] MEDS: Multiple Vitamins Tab PO SCH (09:37)
[2017-08-12] MEDS: Buprenorphine Hydrochloride 2 mg SL SCH (09:38)
--- NOTE | 2017-08-12 15:00 | PCM.PYCHPN ---
Psychiatric Progress Note - Psychiatric Progress Note Patient seen today, length of contact: 15 min Patient Chief Complaint: "I am anxious" Problems Identified/Issues Discussed: The pt is seen, chart reviewed, case discussed with staff. The pt is compliant with medications and reports no side-effects. Symptoms are improving but needs more time to stabilize. After care discussed, support and psychoeducation given. Med seeking a lot, redirectable Medication Change: Yes (detox changes daily) Medical Record Reviewed: Yes Mental Status Examination - Cognitive Function Orientation: Person, Place, Situation, Time Memory: Intact Attention: WNL Concentration: Poor Association: WNL Fund of Knowledge: WNL - Mood Mood: Depressed - Affect Affect: Constricted - Speech Speech: Appropriate - Formal Thought Process Formal Thought Process: No Impairment - Suicidal Ideation Suicidal Ideation: No - Homicidal Ideation Homicidal Ideation: No Goal/Treatment Plan - Goal/Treatment Plan Need for Continued Stay: Discharge may exacerbated symptoms, Severe functional impairment Progress Toward Problem(s) and Goals/Treatment Plan: Librium and subutex detox As needed medications All risks, benefits and alternatives of medications, including no medications, discussed and the patient understood and agreed. Attend groups and activities Supportive therapy and psychoeducation [place] for abstinence CBT for relapse prevention Encourage MAT Refer to rehab or IOP Attend self-help groups as well
--- NOTE | 2017-08-12 15:00 | PCM.PYCHPN ---
Psychiatric Progress Note - Psychiatric Progress Note Patient seen today, length of contact: 15 min Patient Chief Complaint: "Same" Problems Identified/Issues Discussed: The pt is seen, chart reviewed, case discussed with staff. Support given, CBT and [place] used briefly No new symptoms reported, improving slowly and needs more time No SEs from medications, risks discussed. After care discussed - wants to go to IOP at [facility] He is very med-seeking Medication Change: Yes (detox changes daily) Medical Record Reviewed: Yes Mental Status Examination - Cognitive Function Orientation: Person, Place, Situation, Time Memory: Intact Attention: WNL Concentration: Poor Association: WNL Fund of Knowledge: WNL - Mood Mood: Depressed - Affect Affect: Constricted - Speech Speech: Appropriate - Formal Thought Process Formal Thought Process: No Impairment - Suicidal Ideation Suicidal Ideation: No - Homicidal Ideation Homicidal Ideation: No Goal/Treatment Plan - Goal/Treatment Plan Need for Continued Stay: Discharge may exacerbated symptoms, Severe functional impairment Progress Toward Problem(s) and Goals/Treatment Plan: Librium and subutex detox As needed medications All risks, benefits and alternatives of medications, including no medications, discussed and the patient understood and agreed. Attend groups and activities Supportive therapy and psychoeducation [place] for abstinence CBT for relapse prevention Encourage MAT Refer to rehab or IOP Attend self-help groups as well
[2017-08-13 06:41] VITALS: O2SAT 97
[2017-08-13 08:49] VITALS: BP 124/88; PULSE 89; RESP 20; TEMP 98.1
[2017-08-13] MEDS: Multiple Vitamins Tab PO SCH (09:15)
--- NOTE | 2017-08-13 09:20 | PCM.PYCHDC ---
Mental Status Examination - Mental Status Examination Orientation: Person, Place, Situation, Time Memory: Intact Mood: Neutral Affect: Constricted Speech: Soft Attention: WNL Concentration: WNL Association: WNL Fund of Knowledge: WNL Formal Thought Process: No Impairment Description of patient's judgement and insight: good, fair Psychotic Thoughts and Behaviors: denies any AVH Suicidal Ideation: No Current Homicidal Ideation?: No Discharge Summary - Discharge Note Reason for Hospitalization: This is a 46-year-old male, single with 2 children aged 18 and 27. The patient lives with his mother in [place] and he is on Social Security. 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 He states he started drinking when he was 9 years old and had more than 10 detoxes and 10 rehabs. He doesn't go to . His longest sobriety was a little bit more than a year. He had seizures only during wdw in the past. He also smokes 1/2 pack per day cigarettes. He uses heroin again; 3 bags intranasally. Past psych history: Denies Consultations:: List each consultation separately and include: 1. Reason for request. 2. Findings. 3. Follow-up Summary of Hospital Course include:: 1. Description of specific treatment plan utilized for patients during their course of treatmen. 2. Summarize the time- course for resolution of acute symptoms and/or regressed behaviors. 3. Describe issues identified and worked on during hospitalization. 4. Describe medication utilized. 5. Describe medical problems identified and treated. 6. Reassessment of suicide risk - Final Diagnosis (DSM 5) Condition upon Discharge: STABLE DSM 5: Alcohol withdrawal Alcohol use d/o - severe opioid use d/o - severe Opioid withdrawal Disposition: HOME/ ROUTINE Prescriptions/Medication Reconciliation: Gabapentin [Neurontin] 300 mg PO BID #60 cap hydrOXYzine HCl [Atarax] 50 mg PO BID PRN #30 tab PRN Reason: Anxiety traZODone [Desyrel] 100 mg PO HS PRN #30 tab PRN Reason: Insomnia
== END 2017-08-13 10:00 | disposition home or self-care (01) | DRG 744 ==
LOC: C.ER 09:32 → C.7D 15:20
PROVIDERS: ADMIT Psychiatry & Neurology Psychiatry; ATTEND Psychiatry & Neurology Psychiatry
PROC: HZ2ZZZZ Detoxification Services for Substance Abuse Treatment (ICD-10-PCS; principal; 2017-08-08)
PROC: HZ52ZZZ Individual Psychotherapy for Substance Abuse Treatment, Cognitive-Behavioral (ICD-10-PCS; 2017-08-08)
PROC: HZ59ZZZ Individual Psychotherapy for Substance Abuse Treatment, Supportive (ICD-10-PCS; 2017-08-08)
PROC: HZ56ZZZ Individual Psychotherapy for Substance Abuse Treatment, Psychoeducation (ICD-10-PCS; 2017-08-08)
DX: F10.230 Alcohol dependence with withdrawal, uncomplicated (principal); R56.9 Unspecified convulsions; F11.23 Opioid dependence with withdrawal; F17.210 Nicotine dependence, cigarettes, uncomplicated

== ENCOUNTER 2017-12-08 11:24 | Inpatient (IN) | payer MEDICAID, OTHER ==
[2017-12-08] MEDS ORDERED: Sodium Chloride 0.9% 1,000 ML IV ONE (11:43)
[2017-12-08 12:14] LABS: BASO % 0.6 % (0.0-2.0); EOS # 0.1 K/uL (0.0-0.7); LYMPH # 0.4 K/uL (1.0-4.3); LYMPH % 5.3 % (20.0-40.0); MEAN CELL VOLUME 103.3 fL (80.0-94.0); MEAN CORPUSCULAR HGB CONC 34.8 g/dL (33.0-37.0); MEAN PLATELET VOLUME 6.9 fL (7.2-11.7); MONO # 0.5 K/uL (0.0-0.8); MONO % 7.1 % (0.0-10.0); NEUT # 5.8 K/uL (1.8-7.0); PLATELET COUNT 211 K/uL (130-400); RBC 3.63 Mil/uL (4.40-5.90); RED CELL DISTRIBUTION WIDTH 13.1 % (11.5-14.5); WHITE BLOOD COUNT 6.7 K/uL (4.8-10.8)
[2017-12-08 12:28] LABS: ALB/GLOB RATIO 1.2 (1.0-2.1); ALBUMIN 3.9 g/dL (3.5-5.0); ALT/SGPT 55 U/L (21-72); AST/SGOT 71 U/L (17-59); BLOOD UREA NITROGEN 9 mg/dL (9-20); CALCIUM 9.2 mg/dl (8.6-10.4); GFR AFRICAN-AMERICAN > 60; GFR NON-AFRICAN AMERICAN > 60
--- NOTE | 2017-12-08 12:31 | RAD ---
PROCEDURE: CHEST RADIOGRAPH, 1 VIEW HISTORY: Seizure COMPARISON: None available. FINDINGS: LUNGS: The lungs are well inflated and clear. PLEURA: No pneumothorax or pleural fluid seen. CARDIOVASCULAR: Normal. OSSEOUS STRUCTURES: No significant abnormalities. VISUALIZED UPPER ABDOMEN: Normal. OTHER FINDINGS: None. IMPRESSION: No active pulmonary disease.
--- NOTE | 2017-12-08 12:35 | C.PDOC ---
History Of Present Illness Patient is a 47 y/o male, with a Hx of alcoholism, who presents to the ED BIBA with a complaint of 3 seizure episodes today. On arrival, patient complains of lip lacerations as well. Patient admits last drink was yesterday; denies any other complaints at this time. Time Seen by Provider: 12/08/17 11:32 Chief Complaint (Nursing): Seizure History Per: Patient History/Exam Limitations: no limitations Recent Seizure Activity Began: Unknown Number Of Seizures: Multiple (3) Length Of Seizures (Duration): Unknown Precipitating Factor(s): Recent Alcohol Ingestion (last night), Other (alcohol withdrawal) Associated Symptoms: Other (lip lacerations) Recent travel outside of the [place]: No Past Medical History Reviewed: Historical Data, Nursing Documentation, Vital Signs Vital Signs: Last Vital Signs Temp 98.6 F 12/10/17 12:00 Pulse 74 12/10/17 12:00 Resp 20 12/10/17 12:00 BP 96/70 L 12/10/17 12:00 Pulse Ox 99 12/10/17 12:00 - Medical History PMH: Seizures (alcohol induced) Denies: Diabetes, Hepatitis, HIV, HTN, Chronic Kidney Disease, Sexually Transmitted Disease Surgical History: No Surg Hx - [facility] DETOXIFICATION SERVICES FOR SUBSTANCE ABUSE TREATMENT (08/08/17) GROUP SQL DBA FOR SUBSTANCE ABUSE TREATMENT, PSYCHOEDUCATION (12/13/16) INDIV PSYCHOTHERAPY FOR SUBSTANCE ABUSE TREATMENT, SUPPORT (08/08/17) INDIV PSYCHOTHERAPY FOR SUBSTANCE ABUSE, COGNITIV BEHAVIORAL (08/08/17) INDIV PSYCHOTHERAPY FOR SUBSTANCE ABUSE, PSYCHOEDUCATION (08/08/17) PHARMACOTHERAPY FOR SUBSTANCE ABUSE, NICOTINE REPLACE (12/13/16) Family History: States: Unknown Family Hx - Social History Hx Tobacco Use: Yes (light smoker) Hx Alcohol Use: Yes Hx Substance Use: Yes (heroin) - Immunization History Hx Tetanus Toxoid Vaccination: No Review Of Systems Skin: Positive for: Other (lip lacerations) Neurological: Positive for: Seizures Physical Exam - Physical Exam Appears: Non-toxic Skin: Normal Color, Warm, Dry Head: Atraumatic, Normacephalic Oral Mucosa: Moist Tongue: Normal Appearing Lips: Laceration (3 cm laceration to left upper lip; 3 cm laceration to inside of left upper lip), No Erythema Teeth: Normal Dentition Gingiva: Normal Appearing Throat: Normal, No Erythema Chest: Symmetrical Cardiovascular: Rhythm Regular, No Murmur Respiratory: Normal Breath Sounds, No Rales, No Rhonchi, No Wheezing Gastrointestinal/Abdominal: Soft, No Tenderness Additional Physical Exam Comments: Assessment: alcohol withdrawal ED Course And Treatment - Laboratory Results Result Diagrams: 12/10/17 06:30 12/10/17 06:31 ECG: Interpreted By Me, Viewed By Me ECG Rhythm: Sinus Rhythm ECG Interpretation: Normal Interpretation Of ECG: normal intervals, normal axis, no st/t wave abnormalities. Rate From EC (bpm) O2 Sat by Pulse Oximetry: 99 - Radiology CXR: Interpreted by Me, Viewed By Me CXR Interpretation: Yes: No Acute Disease - CT Scan/US Head CT Other Rad Studies (CT/US): Interpreted By Me, Read By Radiologist CT/US Interpretation: PROCEDURE: CT HEAD WITHOUT CONTRAST. HISTORY: Seizure. COMPARISON: 05/27/2017. TECHNIQUE: Axial computed tomography images were obtained through the head/brain without intravenous contrast. Radiation dose: Total exam DLP = 808.45 mGy-cm. This CT exam was performed using one or more of the following dose reduction techniques: Automated exposure control, adjustment of the mA and/or kV according to patient size, and/or use of iterative reconstruction technique. FINDINGS: HEMORRHAGE: No intracranial hemorrhage. BRAIN: There is no mass, mass effect or abnormal extra-axial fluid collection. There is no territorial infarction. VENTRICLES: There is mild age advanced global parenchymal volume loss and proportionate enlargement of the ventricles and cortical sulci. CALVARIUM: The skull base and calvarium are normal. PARANASAL SINUSES: Predominantly clear. MASTOID AIR CELLS: Predominantly clear. OTHER FINDINGS: None. IMPRESSION: No acute intracranial abnormality. Mild global parenchymal volume loss, advanced for the patient's age. Progress Note: EKG, UA, and blood work ordered. Librium, ativan, and IV fluids administered. Patient is to be admitted to ICU under Dr Benson's service. CCT noted. - Physician Consult Information Time Consulting Physician Contacted: 12:30 Physician Contacted: Nilesh Scott Outcome Of Conversation: Dr Joni Scott is coming into ED to assess patient. Advises to admit patient to ICU. Critical Care Time - Critical Care Note Total Time (in mins): 60 Documented critical care: time excludes all time spent performing seperately billable procedures. Laceration - Laceration Repair inner left upper lip Wound Length (In cm): 3 Description Of Wound: Linear Anesthesia: Lidocaine 1% Wound Examination: No FB With Wound Exploration Wound Closure: Suture (3 sutures) Suture Technique And Material Used: Interrupted, Chromic (5.0, absorbable) Wound Complexity: Simple external left upper lip Wound Length (In cm): 3 Description Of Wound: Linear Anesthesia: Lidocaine 1% Wound Examination: No FB With Wound Exploration Wound Closure: Suture (5 sutures) Suture Technique And Material Used: Running, Nylon (5.0) Wound Complexity: Simple Disposition Discussed With : Denny Benson Doctor Will See Patient In The: Hospital Counseled Patient/Family Regarding: Studies Performed, Diagnosis - Disposition Disposition: HOSPITALIZED Disposition Time: 12:35 Condition: FAIR - Clinical Impression Clinical Impression: Alcohol withdrawal seizure - Scribe Statement The provider has reviewed the documentation as recorded by the Scribsumeet Pham All medical record entries made by the Sarah Bethibsumeet were at my direction and personally dictated by me. I have reviewed the chart and agree that the record accurately reflects my personal performance of the history, physical exam, medical decision making, and the department course for this patient. I have also personally directed, reviewed, and agree with the discharge instructions and disposition.
[2017-12-08 12:56] LABS: BANDS 2 % (0-2); BASOPHIL 1 % (0-2); LYMPHOCYTE 2 % (20-40); MONOCYTE 6 % (0-10); NEUTROPHIL 89 % (50-75); PLATELET ESTIMATE NORMAL (NORMAL); TOTAL CELLS COUNTED 100
--- NOTE | 2017-12-08 12:56 | CT ---
PROCEDURE: CT HEAD WITHOUT CONTRAST. HISTORY: Seizure COMPARISON: 05/27/2017. TECHNIQUE: Axial computed tomography images were obtained through the head/brain without intravenous contrast. Radiation dose: Total exam DLP = 808.45 mGy-cm. This CT exam was performed using one or more of the following dose reduction techniques: Automated exposure control, adjustment of the mA and/or kV according to patient size, and/or use of iterative reconstruction technique. FINDINGS: HEMORRHAGE: No intracranial hemorrhage. BRAIN: There is no mass, mass effect or abnormal extra-axial fluid collection. There is no territorial infarction. VENTRICLES: There is mild age advanced global parenchymal volume loss and proportionate enlargement of the ventricles and cortical sulci. CALVARIUM: The skull base and calvarium are normal. PARANASAL SINUSES: Predominantly clear. MASTOID AIR CELLS: Predominantly clear. OTHER FINDINGS: None. IMPRESSION: No acute intracranial abnormality. Mild global parenchymal volume loss, advanced for the patient's age.
[2017-12-08] MEDS ORDERED: Multivitamin (MVI) 10 ML, Thiamine 100 MG, Folic Acid 1 MG in Sodium Chloride 0.9% 1,00... IV ONE (13:00)
--- NOTE | 2017-12-08 13:12 | CP.PCM.CON ---
History of Present Illness - History of Present Illness History of Present Illness: 47 y/o male with pmx of polysubstance abuse h/o smoking h/o snorting heroin, drinking alcohol presents to [facility] with c/o seizures. Patient describes seizures as shaking without any post ictal phase, denies any urinary or fecal incontinence. Patient deneis any headaches, denies any abdominal pain. Patient wishes to be admitted to a detox unit. Review of Systems - Review of Systems Review of Systems: as per HPI, all other systems negative Past Patient History - Infectious Disease Hx of Infectious Diseases: None - Past Medical History & Family History Past Medical History?: No - Past Social History Smoking Status: Light Smoker < 10 Cigarettes Daily - CARDIAC Hx Hypertension: No - PULMONARY Hx Respiratory Disorders: No Hx Tuberculosis: No - NEUROLOGICAL Hx Seizures: Yes (alcohol induced) - HEENT Hx HEENT Problems: No - RENAL Hx Chronic Kidney Disease: No - ENDOCRINE/METABOLIC Hx Endocrine Disorders: No - HEMATOLOGICAL/ONCOLOGICAL Hx Human Immunodeficiency Virus (HIV): No - INTEGUMENTARY Hx Dermatological Problems: No - MUSCULOSKELETAL/RHEUMATOLOGICAL Hx Falls: No - GASTROINTESTINAL Hx Gastrointestinal Disorders: No - GENITOURINARY/GYNECOLOGICAL Hx Sexually Transmitted Disorders: No - PSYCHIATRIC Hx Substance Use: Yes - SURGICAL HISTORY Hx Surgeries: Yes Hx Herniorrhaphy: Yes - ANESTHESIA Hx Anesthesia: Yes Hx Anesthesia Reactions: No Hx Malignant Hyperthermia: No Meds Allergies/Adverse Reactions: Allergies Allergy/AdvReac Type Severity Reaction Status Date / Time No Known Allergies Allergy Verified 12/08/17 12:02 - Medications Medications: Current Medications Multivitamins/Vitamin C 10 ml/Thiamine HCl 100 mg/ Folic Acid 1 mg/ Sodium Chloride 1,011.2 mls @ 42 mls/hr IV .Q24H ONE Stop: 12/09/17 12:59 Last Admin: 12/08/17 13:00 Dose: 42 mls/hr Physical Exam - Head Exam Head Exam: ATRAUMATIC Additional comments: lip laceration - Eye Exam Pupil Exam: NORMAL ACCOMODATION, PERRL - ENT Exam ENT Exam: Mucous Membranes Moist - Respiratory Exam Respiratory Exam: Clear to Auscultation Bilateral, NORMAL BREATHING PATTERN - Cardiovascular Exam Cardiovascular Exam: REGULAR RHYTHM, +S1, +S2, +S4, Systolic Murmur - GI/Abdominal Exam GI & Abdominal Exam: Normal Bowel Sounds, Soft - Rectal Exam Rectal Exam: NORMAL INSPECTION - Extremities Exam Extremities exam: Positive for: normal inspection - Neurological Exam Neurological exam: Alert, Oriented x3 Results - Vital Signs Recent Vital Signs: Last Vital Signs Temp 98.3 F 12/08/17 11:36 Pulse 73 12/08/17 12:37 Resp 12 12/08/17 12:37 BP 116/70 12/08/17 12:37 Pulse Ox 99 12/08/17 12:37 - Labs Result Diagrams: 12/08/17 12:07 12/08/17 12:07 Labs: Laboratory Results - last 24 hr 12/08/17 12/08/17 12/08/17 11:37 12:07 12:07 WBC 6.7 RBC 3.63 L Hgb 13.0 Hct 37.5 MCV 103.3 H MCH 36.0 H MCHC 34.8 RDW 13.1 Plt Count 211 MPV 6.9 L Neut % (Auto) 86.0 H Lymph % (Auto) 5.3 L [place] % (Auto) 7.1 Eos % (Auto) 1.0 Baso % (Auto) 0.6 Neut # (Auto) 5.8 Lymph # (Auto) 0.4 L [place] # (Auto) 0.5 Eos # (Auto) 0.1 Baso # (Auto) 0.0 Neutrophils % (Manual) 89 H Band Neutrophils % 2 Lymphocytes % (Manual) 2 L Monocytes % (Manual) 6 Basophils % (Manual) 1 Platelet Estimate Normal Sodium 138 Potassium 3.9 Chloride 102 Carbon Dioxide 25 Anion Gap 15 BUN 9 Creatinine 0.6 L Est GFR ( Amer) > 60 Est GFR (Non-Af Amer) > 60 POC Glucose (mg/dL) 247 H Random Glucose 174 H Calcium 9.2 Magnesium 1.8 Total Bilirubin 1.0 AST 71 H ALT 55 Alkaline Phosphatase 68 Total Creatine Kinase 183 H Total Protein 7.3 Albumin 3.9 Globulin 3.3 Albumin/Globulin Ratio 1.2 Alcohol, Quantitative < 10 Assessment & Plan - Assessment and Plan (Free Text) Assessment: Seizures: suspect 2nd withdrawal, will start keppra, obtain eeg and neurology eval, ct head neg -ETOH withdrawal: start oral librium, continue MVI/folate/B12 -heroin/alcohol use/abuse: tapering dose of librium, psych eval, patient strongly advised to live a healty life and not consume illicit drugs -DVT ppx lovenox Patient will benefit from observation for 24 hour before being downgraded d/w ER physician - Date & Time Date: 12/08/17 Time: 13:15
[2017-12-08] MEDS ORDERED: Lidocaine 1% Inj (20ml) INFIL ONE (13:31)
[2017-12-08] MEDS ORDERED: Tdap Vaccine 0.5 ml Vial (10-64 yrs) IM ONE (13:31)
[2017-12-08 17:12] LABS: SQUAMOUS EPITHIAL < 1 /hpf (0-5); URINE BILIRUBIN NEGATIVE (NEGATIVE); URINE CLARITY Clear (Clear); URINE COLOR Yellow (YELLOW); URINE GLUCOSE (UA) 1+ mg/dL (Normal); URINE LEUKOCYTE ESTERASE NEG Leu/uL (Negative); URINE PROTEIN NEGATIVE (NEGATIVE); URINE UROBILINOGEN NORMAL mg/dL (0.2-1.0)
[2017-12-08 17:28] LABS: URINE BLOOD TRACE (NEGATIVE)
[2017-12-08 17:41] LABS: BARBITURATES, UR NEGATIVE (NEGATIVE); BENZODIAZEPINES, UR NEGATIVE (NEGATIVE); PHENCYCLIDINE, UR NEGATIVE (NEGATIVE)
[2017-12-08 17:43] LABS: OPIATES, UR POSITIVE (NEGATIVE)
[2017-12-08] MEDS ORDERED: Buprenorphine Hydrochloride 2 mg SL ONE (20:12)
[2017-12-09] MEDS ORDERED: Buprenorphine Hydrochloride 8 mg SL ONE ×3 (04:00→16:00)
[2017-12-09 06:32] LABS: BASO # 0.1 K/uL (0.0-0.2); BASO % 0.9 % (0.0-2.0); EOS # 0.2 K/uL (0.0-0.7); EOS % 2.8 % (0.0-4.0); HEMOGLOBIN 13.2 g/dL (12.0-18.0); MEAN CORPUSCULAR HEMOGLOBIN 36.9 pg (27.0-31.0); MEAN CORPUSCULAR HGB CONC 35.5 g/dL (33.0-37.0); MEAN PLATELET VOLUME 7.5 fL (7.2-11.7); MONO # 0.7 K/uL (0.0-0.8); MONO % 11.5 % (0.0-10.0); NEUT # 4.2 K/uL (1.8-7.0); NEUT % 68.8 % (50.0-75.0); RBC 3.57 Mil/uL (4.40-5.90); RED CELL DISTRIBUTION WIDTH 13.1 % (11.5-14.5); WHITE BLOOD COUNT 6.1 K/uL (4.8-10.8)
[2017-12-09 06:49] LABS: ALB/GLOB RATIO 1.1 (1.0-2.1); ALBUMIN 3.6 g/dL (3.5-5.0); ALT/SGPT 46 U/L (21-72); AST/SGOT 54 U/L (17-59); BLOOD UREA NITROGEN 9 mg/dL (9-20); CALCIUM 8.9 mg/dl (8.6-10.4); GFR AFRICAN-AMERICAN > 60; GFR NON-AFRICAN AMERICAN > 60
[2017-12-09 09:49] LABS: PROTHROMBIN TIME 11.2 SECONDS (9.7-12.2)
[2017-12-09] MEDS: Enoxaparin 40 mg Syringe SC SCH (12:24)
--- NOTE | 2017-12-09 12:55 | CP.PCM.CON ---
History of Present Illness - History of Present Illness History of Present Illness: Neurology Consultation Note: Mr. Quintanilla is 47-year-old man with a past medical history of alcoholism and previous alcohol withdrawal as well as non-alcohol related seizure, who was brought in yesterday after having two witnessed seizures and 3 subsequent seizures. Currently, he is back to baseline and was admitted to ICU for close observation. CT scan of the head was normal. Review of Systems - Review of Systems All systems: reviewed and no additional remarkable complaints except Past Patient History - Infectious Disease Hx of Infectious Diseases: None - Past Medical History & Family History Past Medical History?: No - Past Social History Smoking Status: Light Smoker < 10 Cigarettes Daily - CARDIAC Hx Hypertension: No - PULMONARY Hx Respiratory Disorders: No Hx Tuberculosis: No - NEUROLOGICAL Hx Seizures: Yes (alcohol induced) - HEENT Hx HEENT Problems: No - RENAL Hx Chronic Kidney Disease: No - ENDOCRINE/METABOLIC Hx Endocrine Disorders: No - HEMATOLOGICAL/ONCOLOGICAL Hx Human Immunodeficiency Virus (HIV): No - INTEGUMENTARY Hx Dermatological Problems: No - MUSCULOSKELETAL/RHEUMATOLOGICAL Hx Falls: Yes - GASTROINTESTINAL Hx Gastrointestinal Disorders: No - GENITOURINARY/GYNECOLOGICAL Hx Sexually Transmitted Disorders: No - PSYCHIATRIC Hx Substance Use: Yes - SURGICAL HISTORY Hx Surgeries: Yes Hx Herniorrhaphy: Yes - ANESTHESIA Hx Anesthesia: Yes Hx Anesthesia Reactions: No Hx Malignant Hyperthermia: No Meds Allergies/Adverse Reactions: Allergies Allergy/AdvReac Type Severity Reaction Status Date / Time No Known Allergies Allergy Verified 12/08/17 12:02 - Medications Medications: Current Medications Chlordiazepoxide (Librium) 25 mg PO Q6H [facility] PRN Reason: Taper Stop: 12/13/17 11:59 Last Admin: 12/09/17 12:42 Dose: Not Given Cyanocobalamin (Vitamin B12 1000 Mcg/Ml Inj) 1,000 mcg IM DAILY [facility] Stop: 12/11/17 10:01 Last Admin: 12/09/17 09:39 Dose: 1,000 mcg Enoxaparin Sodium (Lovenox) 40 mg SC DAILY [facility] Last Admin: 12/09/17 12:24 Dose: 40 mg Folic Acid (Folic Acid) 1 mg PO DAILY [facility] Last Admin: 12/09/17 11:04 Dose: 1 mg Multivitamins/Vitamin C 10 ml/Thiamine HCl 100 mg/ Folic Acid 1 mg/ Sodium Chloride 1,011.2 mls @ 42 mls/hr IV .Q24H ONE Stop: 12/09/17 12:59 Last Admin: 12/08/17 13:00 Dose: 42 mls/hr Levetiracetam 500 mg/ Dextrose 105 mls @ 420 mls/hr IVPB Q12H [facility] Last Admin: 12/09/17 12:23 Dose: 420 mls/hr Lorazepam (Ativan) 2 mg IVP Q4H PRN PRN Reason: Anxiety Multivitamins (Hexavitamin) 1 tab PO DAILY [facility] Thiamine HCl (Vitamin B1 Tab) 100 mg PO DAILY [facility] Physical Exam - Head Exam Additional comments: Laceration on the right side of mouth, tongue and lips. - Neurological Exam Neurological exam: Alert, CN II-XII Intact, Normal Gait, Oriented x3, Reflexes Normal Results - Vital Signs Recent Vital Signs: Last Vital Signs Temp 97.9 F 12/09/17 08:00 Pulse 81 12/09/17 11:00 Resp 13 12/09/17 11:00 BP 92/66 L 12/09/17 10:26 Pulse Ox 100 12/09/17 10:26 - Labs Result Diagrams: 12/09/17 06:23 12/09/17 06:23 Labs: Laboratory Results - last 24 hr 12/08/17 12/08/17 12/08/17 12:07 15:07 17:01 WBC RBC Hgb Hct MCV MCH MCHC RDW Plt Count MPV Neut % (Auto) Lymph % (Auto) [place] % (Auto) Eos % (Auto) Baso % (Auto) Neut # (Auto) Lymph # (Auto) [place] # (Auto) Eos # (Auto) Baso # (Auto) Neutrophils % (Manual) 89 H Band Neutrophils % 2 Lymphocytes % (Manual) 2 L Monocytes % (Manual) 6 Basophils % (Manual) 1 Platelet Estimate Normal PT INR APTT Sodium Potassium Chloride Carbon Dioxide Anion Gap BUN Creatinine Est GFR ( Amer) Est GFR (Non-Af Amer) Random Glucose Lactic Acid 0.8 Calcium Phosphorus Magnesium Total Bilirubin AST ALT Alkaline Phosphatase Total Protein Albumin Globulin Albumin/Globulin Ratio Urine Color Yellow Urine Clarity Clear Urine pH 7.0 Ur Specific [place] 1.008 Urine Protein Negative Urine Glucose (UA) 1+ H Urine Ketones Negative Urine Blood Trace H Urine Nitrate Negative Urine Bilirubin Negative Urine Urobilinogen Normal Ur Leukocyte Esterase Neg Urine WBC (Auto) < 1 Urine RBC (Auto) 1 Ur Squamous Epith Cells < 1 Urine Opiates Screen Urine Methadone Screen Ur Barbiturates Screen Ur Phencyclidine Scrn Ur Amphetamines Screen U Benzodiazepines Scrn U Oth Cocaine Metabols U Cannabinoids Screen 12/08/17 12/09/17 12/09/17 17:01 06:23 06:23 WBC 6.1 RBC 3.57 L Hgb 13.2 Hct 37.1 MCV 104.0 H MCH 36.9 H MCHC 35.5 RDW 13.1 Plt Count 205 MPV 7.5 Neut % (Auto) 68.8 Lymph % (Auto) 16.0 L [place] % (Auto) 11.5 H Eos % (Auto) 2.8 Baso % (Auto) 0.9 Neut # (Auto) 4.2 Lymph # (Auto) 1.0 [place] # (Auto) 0.7 Eos # (Auto) 0.2 Baso # (Auto) 0.1 Neutrophils % (Manual) Band Neutrophils % Lymphocytes % (Manual) Monocytes % (Manual) Basophils % (Manual) Platelet Estimate PT INR APTT Sodium 142 Potassium 3.5 L Chloride 105 Carbon Dioxide 27 Anion Gap 15 BUN 9 Creatinine 0.7 L Est GFR ( Amer) > 60 Est GFR (Non-Af Amer) > 60 Random Glucose 116 H Lactic Acid Calcium 8.9 Phosphorus 4.5 Magnesium 2.0 Total Bilirubin 1.0 AST 54 ALT 46 Alkaline Phosphatase 63 Total Protein 7.0 Albumin 3.6 Globulin 3.4 Albumin/Globulin Ratio 1.1 Urine Color Urine Clarity Urine pH Ur Specific [place] Urine Protein Urine Glucose (UA) Urine Ketones Urine Blood Urine Nitrate Urine Bilirubin Urine Urobilinogen Ur Leukocyte Esterase Urine WBC (Auto) Urine RBC (Auto) Ur Squamous Epith Cells Urine Opiates Screen Positive H Urine Methadone Screen Negative Ur Barbiturates Screen Negative Ur Phencyclidine Scrn Negative Ur Amphetamines Screen Negative U Benzodiazepines Scrn Negative U Oth Cocaine Metabols Negative U Cannabinoids Screen Negative 12/09/17 09:38 WBC RBC Hgb Hct MCV MCH MCHC RDW Plt Count MPV Neut % (Auto) Lymph % (Auto) [place] % (Auto) Eos % (Auto) Baso % (Auto) Neut # (Auto) Lymph # (Auto) [place] # (Auto) Eos # (Auto) Baso # (Auto) Neutrophils % (Manual) Band Neutrophils % Lymphocytes % (Manual) Monocytes % (Manual) Basophils % (Manual) Platelet Estimate PT 11.2 INR 1.0 APTT 31 Sodium Potassium Chloride Carbon Dioxide Anion Gap BUN Creatinine Est GFR ( Amer) Est GFR (Non-Af Amer) Random Glucose Lactic Acid Calcium Phosphorus Magnesium Total Bilirubin AST ALT Alkaline Phosphatase Total Protein Albumin Globulin Albumin/Globulin Ratio Urine Color Urine Clarity Urine pH Ur Specific [place] Urine Protein Urine Glucose (UA) Urine Ketones Urine Blood Urine Nitrate Urine Bilirubin Urine Urobilinogen Ur Leukocyte Esterase Urine WBC (Auto) Urine RBC (Auto) Ur Squamous Epith Cells Urine Opiates Screen Urine Methadone Screen Ur Barbiturates Screen Ur Phencyclidine Scrn Ur Amphetamines Screen U Benzodiazepines Scrn U Oth Cocaine Metabols U Cannabinoids Screen Assessment & Plan (1) Alcohol withdrawal seizure Assessment and Plan: Continue CIWA protocol, conservative management and will add gabapentin for seizure prophylaxis and may help with alcoholism relapse. Thank you Status: Acute Priority: High
--- NOTE | 2017-12-09 13:13 | CP.CCUPN ---
"<Martin Arechiga - Last Filed: 12/09/17 13:08> CCU Subjective - Physician Review Subjective (Free Text): Patient seen and examined at bedside. No overnight events reported. Patient only complains of tremor and the feeling that he is about to withdraw from Heroin. Patient denies any headache, fever, chills, Chest pain, SOB, abdominal pain, nausea, vomiting, changes in bowel habits, or urinary symptoms. CCU Objective - Vital Signs / Intake & Output Vital Signs (Last 4 hours): Vital Signs Temp Pulse Resp BP Pulse Ox 12/09/17 13:00 72 10 L 97 12/09/17 12:26 68 11 L 114/78 12/09/17 12:00 98.1 F 65 10 L 100 12/09/17 11:26 112 H 10 L 98/69 L 99 12/09/17 11:00 81 13 12/09/17 10:26 66 12 92/66 L 100 12/09/17 10:00 68 11 L 98 12/09/17 09:26 69 10 L 100/62 98 Intake and Output (Last 8hrs): Intake & Output 12/08/17 12/09/17 12/09/17 22:59 06:59 14:59 Intake Total 486 894 994 Output Total 1000 400 600 Balance -514 494 394 Weight 130 lb Intake: Intake, IV Amount 336 394 294 Right Upper arm 336 394 294 Oral 150 500 700 Output: Urine 1000 400 600 Urine, Voided 1000 400 600 - Physical Exam Head: Positive for: Atraumatic, Normocephalic Pupils: Positive for: PERRL Extroacular Muscles: Positive for: EOMI Mouth: Positive for: Moist Mucous Membranes Neck: Positive for: Normal Range of Motion Respiratory/Chest: Positive for: Clear to Auscultation Cardiovascular: Positive for: Regular Rate and Rhythm, Normal S1, S2 Abdomen: Positive for: Normal Bowel Sounds. Negative for: Tenderness Lower Extremity: Negative for: Edema Neurological: Positive for: GCS=15, Other (Tremor) Skin: Positive for: Warm, Normal Color Psychiatric: Positive for: Alert, Oriented x 3 - Medications Active Medications: Active Medications Generic Name Dose Route Start Last Admin Trade Name Freq PRN Reason Stop Dose Admin Chlordiazepoxide 25 mg 12/09/17 12:00 12/09/17 12:42 Librium PO 12/13/17 11:59 Not Given Q6H ADAM Taper Cyanocobalamin 1,000 mcg 12/09/17 10:00 12/09/17 09:39 Vitamin B12 1000 Mcg/Ml Inj IM 12/11/17 10:01 1,000 mcg DAILY ADAM Administration Enoxaparin Sodium 40 mg 12/09/17 11:15 12/09/17 12:24 Lovenox SC 40 mg DAILY ADAM Administration Folic Acid 1 mg 12/09/17 11:00 12/09/17 11:04 Folic Acid PO 1 mg DAILY ADAM Administration Gabapentin 300 mg 12/09/17 14:00 Neurontin PO TID ADAM Levetiracetam 500 mg/ Dextrose 105 mls @ 420 mls/hr 12/09/17 00:00 12/09/17 12:23 IVPB 420 mls/hr Q12H ADAM Administration Lorazepam 2 mg 12/09/17 09:24 Ativan IVP Q4H PRN Anxiety Multivitamins 1 tab 12/10/17 10:00 Hexavitamin PO DAILY [facility] Thiamine HCl 100 mg 12/10/17 10:00 Vitamin B1 Tab PO DAILY ADAM - Patient Studies Lab Studies: Lab Studies 12/09/17 12/09/17 12/09/17 Range/Units 09:38 06:23 06:23 WBC 6.1 (4.8-10.8) K/uL RBC 3.57 L (4.40-5.90) Mil/uL Hgb 13.2 (12.0-18.0) g/dL Hct 37.1 (35.0-51.0) % MCV 104.0 H (80.0-94.0) fL MCH 36.9 H (27.0-31.0) pg MCHC 35.5 (33.0-37.0) g/dL RDW 13.1 (11.5-14.5) % Plt Count 205 (130-400) K/uL MPV 7.5 (7.2-11.7) fL Neut % (Auto) 68.8 (50.0-75.0) % Lymph % (Auto) 16.0 L (20.0-40.0) % Trigg % (Auto) 11.5 H (0.0-10.0) % Eos % (Auto) 2.8 (0.0-4.0) % Baso % (Auto) 0.9 (0.0-2.0) % Neut # (Auto) 4.2 (1.8-7.0) K/uL Lymph # (Auto) 1.0 (1.0-4.3) K/uL Trigg # (Auto) 0.7 (0.0-0.8) K/uL Eos # (Auto) 0.2 (0.0-0.7) K/uL Baso # (Auto) 0.1 (0.0-0.2) K/uL PT 11.2 (9.7-12.2) SECONDS INR 1.0 APTT 31 (21-34) SECONDS Sodium 142 (132-148) mmol/L Potassium 3.5 L (3.6-5.2) mmol/L Chloride 105 (98-107) mmol/L Carbon Dioxide 27 (22-30) mmol/L Anion Gap 15 (10-20) BUN 9 (9-20) mg/dL Creatinine 0.7 L (0.8-1.5) mg/dL Est GFR ( Amer) > 60 Est GFR (Non-Af Amer) > 60 Random Glucose 116 H (75-110) mg/dL Lactic Acid (0.7-2.1) mmol/L Calcium 8.9 (8.6-10.4) mg/dl Phosphorus 4.5 (2.5-4.5) mg/dL Magnesium 2.0 (1.6-2.3) mg/dL Total Bilirubin 1.0 (0.2-1.3) mg/dL AST 54 (17-59) U/L ALT 46 (21-72) U/L Alkaline Phosphatase 63 (38-126) U/L Total Protein 7.0 (6.3-8.3) g/dL Albumin 3.6 (3.5-5.0) g/dL Globulin 3.4 (2.2-3.9) gm/dL Albumin/Globulin Ratio 1.1 (1.0-2.1) Urine Color (YELLOW) Urine Clarity (Clear) Urine pH (5.0-8.0) Ur Specific [place] (1.003-1.030) Urine Protein (NEGATIVE) mg/dL Urine Glucose (UA) (Normal) mg/dL Urine Ketones (NEGATIVE) mg/dL Urine Blood (NEGATIVE) Urine Nitrate (NEGATIVE) Urine Bilirubin (NEGATIVE) Urine Urobilinogen (0.2-1.0) mg/dL Ur Leukocyte Esterase (Negative) Stan/uL Urine WBC (Auto) (0-5) /hpf Urine RBC (Auto) (0-3) /hpf Ur Squamous Epith Cells (0-5) /hpf Urine Opiates Screen (NEGATIVE) Urine Methadone Screen (NEGATIVE) Ur Barbiturates Screen (NEGATIVE) Ur Phencyclidine Scrn (NEGATIVE) Ur Amphetamines Screen (NEGATIVE) U Benzodiazepines Scrn (NEGATIVE) U Oth Cocaine Metabols (NEGATIVE) U Cannabinoids Screen (NEGATIVE) 12/08/17 12/08/17 12/08/17 Range/Units 17:01 17:01 15:07 WBC (4.8-10.8) K/uL RBC (4.40-5.90) Mil/uL Hgb (12.0-18.0) g/dL Hct (35.0-51.0) % MCV (80.0-94.0) fL MCH (27.0-31.0) pg MCHC (33.0-37.0) g/dL RDW (11.5-14.5) % Plt Count (130-400) K/uL MPV (7.2-11.7) fL Neut % (Auto) (50.0-75.0) % Lymph % (Auto) (20.0-40.0) % Trigg % (Auto) (0.0-10.0) % Eos % (Auto) (0.0-4.0) % Baso % (Auto) (0.0-2.0) % Neut # (Auto) (1.8-7.0) K/uL Lymph # (Auto) (1.0-4.3) K/uL Trigg # (Auto) (0.0-0.8) K/uL Eos # (Auto) (0.0-0.7) K/uL Baso # (Auto) (0.0-0.2) K/uL PT (9.7-12.2) SECONDS INR APTT (21-34) SECONDS Sodium (132-148) mmol/L Potassium (3.6-5.2) mmol/L Chloride (98-107) mmol/L Carbon Dioxide (22-30) mmol/L Anion Gap (10-20) BUN (9-20) mg/dL Creatinine (0.8-1.5) mg/dL Est GFR ( Amer) Est GFR (Non-Af Amer) Random Glucose (75-110) mg/dL Lactic Acid 0.8 (0.7-2.1) mmol/L Calcium (8.6-10.4) mg/dl Phosphorus (2.5-4.5) mg/dL Magnesium (1.6-2.3) mg/dL Total Bilirubin (0.2-1.3) mg/dL AST (17-59) U/L ALT (21-72) U/L Alkaline Phosphatase (38-126) U/L Total Protein (6.3-8.3) g/dL Albumin (3.5-5.0) g/dL Globulin (2.2-3.9) gm/dL Albumin/Globulin Ratio (1.0-2.1) Urine Color Yellow (YELLOW) Urine Clarity Clear (Clear) Urine pH 7.0 (5.0-8.0) Ur Specific [place] 1.008 (1.003-1.030) Urine Protein Negative (NEGATIVE) mg/dL Urine Glucose (UA) 1+ H (Normal) mg/dL Urine Ketones Negative (NEGATIVE) mg/dL Urine Blood Trace H (NEGATIVE) Urine Nitrate Negative (NEGATIVE) Urine Bilirubin Negative (NEGATIVE) Urine Urobilinogen Normal (0.2-1.0) mg/dL Ur Leukocyte Esterase Neg (Negative) Stan/uL Urine WBC (Auto) < 1 (0-5) /hpf Urine RBC (Auto) 1 (0-3) /hpf Ur Squamous Epith Cells < 1 (0-5) /hpf Urine Opiates Screen Positive H (NEGATIVE) Urine Methadone Screen Negative (NEGATIVE) Ur Barbiturates Screen Negative (NEGATIVE) Ur Phencyclidine Scrn Negative (NEGATIVE) Ur Amphetamines Screen Negative (NEGATIVE) U Benzodiazepines Scrn Negative (NEGATIVE) U Oth Cocaine Metabols Negative (NEGATIVE) U Cannabinoids Screen Negative (NEGATIVE) Laboratory Results - last 24 hr 12/08/17 12/08/17 12/08/17 15:07 17:01 17:01 WBC RBC Hgb Hct MCV MCH MCHC RDW Plt Count MPV Neut % (Auto) Lymph % (Auto) Trigg % (Auto) Eos % (Auto) Baso % (Auto) Neut # (Auto) Lymph # (Auto) Trigg # (Auto) Eos # (Auto) Baso # (Auto) PT INR APTT Sodium Potassium Chloride Carbon Dioxide Anion Gap BUN Creatinine Est GFR ( Amer) Est GFR (Non-Af Amer) Random Glucose Lactic Acid 0.8 Calcium Phosphorus Magnesium Total Bilirubin AST ALT Alkaline Phosphatase Total Protein Albumin Globulin Albumin/Globulin Ratio Urine Color Yellow Urine Clarity Clear Urine pH 7.0 Ur Specific [place] 1.008 Urine Protein Negative Urine Glucose (UA) 1+ H Urine Ketones Negative Urine Blood Trace H Urine Nitrate Negative Urine Bilirubin Negative Urine Urobilinogen Normal Ur Leukocyte Esterase Neg Urine WBC (Auto) < 1 Urine RBC (Auto) 1 Ur Squamous Epith Cells < 1 Urine Opiates Screen Positive H Urine Methadone Screen Negative Ur Barbiturates Screen Negative Ur Phencyclidine Scrn Negative Ur Amphetamines Screen Negative U Benzodiazepines Scrn Negative U Oth Cocaine Metabols Negative U Cannabinoids Screen Negative 12/09/17 12/09/17 12/09/17 06:23 06:23 09:38 WBC 6.1 RBC 3.57 L Hgb 13.2 Hct 37.1 MCV 104.0 H MCH 36.9 H MCHC 35.5 RDW 13.1 Plt Count 205 MPV 7.5 Neut % (Auto) 68.8 Lymph % (Auto) 16.0 L Trigg % (Auto) 11.5 H Eos % (Auto) 2.8 Baso % (Auto) 0.9 Neut # (Auto) 4.2 Lymph # (Auto) 1.0 Trigg # (Auto) 0.7 Eos # (Auto) 0.2 Baso # (Auto) 0.1 PT 11.2 INR 1.0 APTT 31 Sodium 142 Potassium 3.5 L Chloride 105 Carbon Dioxide 27 Anion Gap 15 BUN 9 Creatinine 0.7 L Est GFR ( Amer) > 60 Est GFR (Non-Af Amer) > 60 Random Glucose 116 H Lactic Acid Calcium 8.9 Phosphorus 4.5 Magnesium 2.0 Total Bilirubin 1.0 AST 54 ALT 46 Alkaline Phosphatase 63 Total Protein 7.0 Albumin 3.6 Globulin 3.4 Albumin/Globulin Ratio 1.1 Urine Color Urine Clarity Urine pH Ur Specific [place] Urine Protein Urine Glucose (UA) Urine Ketones Urine Blood Urine Nitrate Urine Bilirubin Urine Urobilinogen Ur Leukocyte Esterase Urine WBC (Auto) Urine RBC (Auto) Ur Squamous Epith Cells Urine Opiates Screen Urine Methadone Screen Ur Barbiturates Screen Ur Phencyclidine Scrn Ur Amphetamines Screen U Benzodiazepines Scrn U Oth Cocaine Metabols U Cannabinoids Screen Fingerstick Blood Sugar Results: 243 Review of Systems - Review of Systems Review of Systems: As per Subjective Critical Care Progress Note - Nutrition Nutrition: Nutrition Category Date Time Status Regular Diet [DIET] Diets 12/08/17 Lunch Active Assessment/Plan - Assessment and Plan (Free Text) Assessment: 47 y/o male with PMhx of polysubstance, tobacco, and heroin drinking alcohol presents to [facility] with c/o seizures. Admitted to ICU for Alcohol Withdrawal w/ delirium tremens. Plan: Neuro: GCS: 15 Sedation: None A: Seizure, Delerium Tremens, EtoH withdrawal, Heroin Withdrawal. Librium 25mg PO Q6H | Ativan 2mg Q4H PRN Gabapentin 300mg PO TID Neuro check Q2H Aspiration Precautions, Seizure Precautions, CIWA Cardio A: No Active Issues Pulm A: No Active Issues GI A: No Active Issues Renal A: Hypokalemia Replace Potassium PRN ID A: No Acute Issues Psych A: Heroin Abuse, EtOH Abuse, Tobacco Abuse, Hx of Anxiety, Hx of Insomnia Consults: Psych (Dr. Real), Recs Appreciated. Subutex Taper per Psych Trazadone 1--mg PO HS Librium 25mg PO Q6H | Ativan 2mg Q4H PRN Thiamine, Folic Acid, Vit. B12, MultiVitamins. Proph Lovenox Diet: Regular <Orville Lopez S - Last Filed: 12/09/17 16:51> CCU Objective - Vital Signs / Intake & Output Vital Signs (Last 4 hours): Vital Signs Pulse Resp BP Pulse Ox 12/09/17 15:14 69 11 L 97/71 L 98 12/09/17 15:00 69 10 L 98 12/09/17 14:15 69 10 L 94/63 L 97 12/09/17 14:00 69 12 97 12/09/17 13:00 72 10 L 97 Intake and Output (Last 8hrs): Intake & Output 12/09/17 12/09/17 12/09/17 06:59 14:59 22:59 Intake Total 894 1094 0 Output Total 400 600 Balance 494 494 0 Weight 130 lb Intake: Intake, IV Amount 394 294 Right Upper arm 394 294 Oral 500 800 0 Output: Urine 400 600 Urine, Voided 400 600 Other: # Bowel Movements 1 - Medications Active Medications: Active Medications Generic Name Dose Route Start Last Admin Trade Name Freq PRN Reason Stop Dose Admin Buprenorphine HCl 6 mg 12/10/17 09:00 Subutex SL 12/13/17 08:59 .TAPER ADAM Taper Chlordiazepoxide 25 mg 12/09/17 12:00 12/09/17 12:42 Librium PO 12/13/17 11:59 Not Given Q6H ADAM Taper Cyanocobalamin 1,000 mcg 12/09/17 10:00 12/09/17 09:39 Vitamin B12 1000 Mcg/Ml Inj IM 12/11/17 10:01 1,000 mcg DAILY ADAM Administration Enoxaparin Sodium 40 mg 12/09/17 11:15 12/09/17 12:24 Lovenox SC 40 mg DAILY ADAM Administration Folic Acid 1 mg 12/09/17 11:00 12/09/17 11:04 Folic Acid PO 1 mg DAILY ADAM Administration Gabapentin 300 mg 12/09/17 14:00 12/09/17 13:20 Neurontin PO 300 mg TID ADAM Administration Levetiracetam 500 mg/ Dextrose 105 mls @ 420 mls/hr 12/09/17 00:00 12/09/17 12:23 IVPB 420 mls/hr Q12H ADAM Administration Lorazepam 2 mg 12/09/17 09:24 Ativan IVP Q4H PRN Anxiety Multivitamins 1 tab 12/10/17 10:00 Hexavitamin PO DAILY ADAM Thiamine HCl 100 mg 12/10/17 10:00 Vitamin B1 Tab PO DAILY ADAM Trazodone HCl 100 mg 12/09/17 22:00 Desyrel PO HS ADAM - Patient Studies Lab Studies: Lab Studies 12/09/17 12/09/17 12/09/17 Range/Units 09:38 06:23 06:23 WBC 6.1 (4.8-10.8) K/uL RBC 3.57 L (4.40-5.90) Mil/uL Hgb 13.2 (12.0-18.0) g/dL Hct 37.1 (35.0-51.0) % MCV 104.0 H (80.0-94.0) fL MCH 36.9 H (27.0-31.0) pg MCHC 35.5 (33.0-37.0) g/dL RDW 13.1 (11.5-14.5) % Plt Count 205 (130-400) K/uL MPV 7.5 (7.2-11.7) fL Neut % (Auto) 68.8 (50.0-75.0) % Lymph % (Auto) 16.0 L (20.0-40.0) % Trigg % (Auto) 11.5 H (0.0-10.0) % Eos % (Auto) 2.8 (0.0-4.0) % Baso % (Auto) 0.9 (0.0-2.0) % Neut # (Auto) 4.2 (1.8-7.0) K/uL Lymph # (Auto) 1.0 (1.0-4.3) K/uL Trigg # (Auto) 0.7 (0.0-0.8) K/uL Eos # (Auto) 0.2 (0.0-0.7) K/uL Baso # (Auto) 0.1 (0.0-0.2) K/uL PT 11.2 (9.7-12.2) SECONDS INR 1.0 APTT 31 (21-34) SECONDS Sodium 142 (132-148) mmol/L Potassium 3.5 L (3.6-5.2) mmol/L Chloride 105 (98-107) mmol/L Carbon Dioxide 27 (22-30) mmol/L Anion Gap 15 (10-20) BUN 9 (9-20) mg/dL Creatinine 0.7 L (0.8-1.5) mg/dL Est GFR ( Amer) > 60 Est GFR (Non-Af Amer) > 60 Random Glucose 116 H (75-110) mg/dL Calcium 8.9 (8.6-10.4) mg/dl Phosphorus 4.5 (2.5-4.5) mg/dL Magnesium 2.0 (1.6-2.3) mg/dL Total Bilirubin 1.0 (0.2-1.3) mg/dL AST 54 (17-59) U/L ALT 46 (21-72) U/L Alkaline Phosphatase 63 (38-126) U/L Total Protein 7.0 (6.3-8.3) g/dL Albumin 3.6 (3.5-5.0) g/dL Globulin 3.4 (2.2-3.9) gm/dL Albumin/Globulin Ratio 1.1 (1.0-2.1) Urine Color (YELLOW) Urine Clarity (Clear) Urine pH (5.0-8.0) Ur Specific [place] (1.003-1.030) Urine Protein (NEGATIVE) mg/dL Urine Glucose (UA) (Normal) mg/dL Urine Ketones (NEGATIVE) mg/dL Urine Blood (NEGATIVE) Urine Nitrate (NEGATIVE) Urine Bilirubin (NEGATIVE) Urine Urobilinogen (0.2-1.0) mg/dL Ur Leukocyte Esterase (Negative) Stan/uL Urine WBC (Auto) (0-5) /hpf Urine RBC (Auto) (0-3) /hpf Ur Squamous Epith Cells (0-5) /hpf Urine Opiates Screen (NEGATIVE) Urine Methadone Screen (NEGATIVE) Ur Barbiturates Screen (NEGATIVE) Ur Phencyclidine Scrn (NEGATIVE) Ur Amphetamines Screen (NEGATIVE) U Benzodiazepines Scrn (NEGATIVE) U Oth Cocaine Metabols (NEGATIVE) U Cannabinoids Screen (NEGATIVE) 12/08/17 12/08/17 Range/Units 17:01 17:01 WBC (4.8-10.8) K/uL RBC (4.40-5.90) Mil/uL Hgb (12.0-18.0) g/dL Hct (35.0-51.0) % MCV (80.0-94.0) fL MCH (27.0-31.0) pg MCHC (33.0-37.0) g/dL RDW (11.5-14.5) % Plt Count (130-400) K/uL MPV (7.2-11.7) fL Neut % (Auto) (50.0-75.0) % Lymph % (Auto) (20.0-40.0) % Trigg % (Auto) (0.0-10.0) % Eos % (Auto) (0.0-4.0) % Baso % (Auto) (0.0-2.0) % Neut # (Auto) (1.8-7.0) K/uL Lymph # (Auto) (1.0-4.3) K/uL Trigg # (Auto) (0.0-0.8) K/uL Eos # (Auto) (0.0-0.7) K/uL Baso # (Auto) (0.0-0.2) K/uL PT (9.7-12.2) SECONDS INR APTT (21-34) SECONDS Sodium (132-148) mmol/L Potassium (3.6-5.2) mmol/L Chloride (98-107) mmol/L Carbon Dioxide (22-30) mmol/L Anion Gap (10-20) BUN (9-20) mg/dL Creatinine (0.8-1.5) mg/dL Est GFR ( Amer) Est GFR (Non-Af Amer) Random Glucose (75-110) mg/dL Calcium (8.6-10.4) mg/dl Phosphorus (2.5-4.5) mg/dL Magnesium (1.6-2.3) mg/dL Total Bilirubin (0.2-1.3) mg/dL AST (17-59) U/L ALT (21-72) U/L Alkaline Phosphatase (38-126) U/L Total Protein (6.3-8.3) g/dL Albumin (3.5-5.0) g/dL Globulin (2.2-3.9) gm/dL Albumin/Globulin Ratio (1.0-2.1) Urine Color Yellow (YELLOW) Urine Clarity Clear (Clear) Urine pH 7.0 (5.0-8.0) Ur Specific [place] 1.008 (1.003-1.030) Urine Protein Negative (NEGATIVE) mg/dL Urine Glucose (UA) 1+ H (Normal) mg/dL Urine Ketones Negative (NEGATIVE) mg/dL Urine Blood Trace H (NEGATIVE) Urine Nitrate Negative (NEGATIVE) Urine Bilirubin Negative (NEGATIVE) Urine Urobilinogen Normal (0.2-1.0) mg/dL Ur Leukocyte Esterase Neg (Negative) Stan/uL Urine WBC (Auto) < 1 (0-5) /hpf Urine RBC (Auto) 1 (0-3) /hpf Ur Squamous Epith Cells < 1 (0-5) /hpf Urine Opiates Screen Positive H (NEGATIVE) Urine Methadone Screen Negative (NEGATIVE) Ur Barbiturates Screen Negative (NEGATIVE) Ur Phencyclidine Scrn Negative (NEGATIVE) Ur Amphetamines Screen Negative (NEGATIVE) U Benzodiazepines Scrn Negative (NEGATIVE) U Oth Cocaine Metabols Negative (NEGATIVE) U Cannabinoids Screen Negative (NEGATIVE) Laboratory Results - last 24 hr 12/08/17 12/08/17 12/09/17 17:01 17:01 06:23 WBC 6.1 RBC 3.57 L Hgb 13.2 Hct 37.1 MCV 104.0 H MCH 36.9 H MCHC 35.5 RDW 13.1 Plt Count 205 MPV 7.5 Neut % (Auto) 68.8 Lymph % (Auto) 16.0 L Trigg % (Auto) 11.5 H Eos % (Auto) 2.8 Baso % (Auto) 0.9 Neut # (Auto) 4.2 Lymph # (Auto) 1.0 Trigg # (Auto) 0.7 Eos # (Auto) 0.2 Baso # (Auto) 0.1 PT INR APTT Sodium Potassium Chloride Carbon Dioxide Anion Gap BUN Creatinine Est GFR ( Amer) Est GFR (Non-Af Amer) Random Glucose Calcium Phosphorus Magnesium Total Bilirubin AST ALT Alkaline Phosphatase Total Protein Albumin Globulin Albumin/Globulin Ratio Urine Color Yellow Urine Clarity Clear Urine pH 7.0 Ur Specific [place] 1.008 Urine Protein Negative Urine Glucose (UA) 1+ H Urine Ketones Negative Urine Blood Trace H Urine Nitrate Negative Urine Bilirubin Negative Urine Urobilinogen Normal Ur Leukocyte Esterase Neg Urine WBC (Auto) < 1 Urine RBC (Auto) 1 Ur Squamous Epith Cells < 1 Urine Opiates Screen Positive H Urine Methadone Screen Negative Ur Barbiturates Screen Negative Ur Phencyclidine Scrn Negative Ur Amphetamines Screen Negative U Benzodiazepines Scrn Negative U Oth Cocaine Metabols Negative U Cannabinoids Screen Negative 12/09/17 12/09/17 06:23 09:38 WBC RBC Hgb Hct MCV MCH MCHC RDW Plt Count MPV Neut % (Auto) Lymph % (Auto) Trigg % (Auto) Eos % (Auto) Baso % (Auto) Neut # (Auto) Lymph # (Auto) Trigg # (Auto) Eos # (Auto) Baso # (Auto) PT 11.2 INR 1.0 APTT 31 Sodium 142 Potassium 3.5 L Chloride 105 Carbon Dioxide 27 Anion Gap 15 BUN 9 Creatinine 0.7 L Est GFR ( Amer) > 60 Est GFR (Non-Af Amer) > 60 Random Glucose 116 H Calcium 8.9 Phosphorus 4.5 Magnesium 2.0 Total Bilirubin 1.0 AST 54 ALT 46 Alkaline Phosphatase 63 Total Protein 7.0 Albumin 3.6 Globulin 3.4 Albumin/Globulin Ratio 1.1 Urine Color Urine Clarity Urine pH Ur Specific [place] Urine Protein Urine Glucose (UA) Urine Ketones Urine Blood Urine Nitrate Urine Bilirubin Urine Urobilinogen Ur Leukocyte Esterase Urine WBC (Auto) Urine RBC (Auto) Ur Squamous Epith Cells Urine Opiates Screen Urine Methadone Screen Ur Barbiturates Screen Ur Phencyclidine Scrn Ur Amphetamines Screen U Benzodiazepines Scrn U Oth Cocaine Metabols U Cannabinoids Screen Critical Care Progress Note - Nutrition Nutrition: Nutrition Category Date Time Status Regular Diet [DIET] Diets 12/08/17 Lunch Active Attending/Attestation - Attestation I have personally seen and examined this patient.: Yes I have fully participated in the care of the patient.: Yes I have reviewed all pertinent clinical information: Yes Notes (Text): 12/09/17 16:49 patient seen and examined in the intensive care unit Being treated for DTs Continue Librium Ativan as needed Psych evaluation IV fluids and banana bag"
--- NOTE | 2017-12-09 14:52 | PCM.PSYCH ---
Initial Psychiatric Evaluation - Initial Psychiatric Evaluation Type of Admission: Voluntary Legal Status: Capacity Chief Complaint (in patient's own words): "I'm withdrawing" History of Present Illness and Precipitating Events: Consult was requested for his withdrawals. Patient is a 47 year old male, with a history of alcoholism, presented to the ED with a complaint of 3 seizure episodes. On arrival, patient complains of lip lacerations as well. He is single and 2 children (18 and 27). The patient lives with his mother in [place] and is on Social Security. He used to work as a cook about 4 years ago. Patient drinks 8+ pack of beer a day with some liquor shots at times. Patient also uses heroin intranasally, 1-2 bags a day. Patient denies benzo and Xanax use. Patient states he se started drinking when he was 9 years old and had more than 10 detoxes and 10 rehabs. He does not go to AA. His longest sobriety was little bit more than a year. He smokes PPD cigarettes. His plan after discharge is to go to a outpatient program. he is known from previous admissions. H eis already given subutex 8 mg twice while here and put on librium, which is adjusted. Detox HX 10x Rehab HX 10x Medical HX Alcohol Related Seizures Surgical HX Left Hip Surgery Medications Denies Psych HX Denies Family HX Denies Allergies No Known Allergies Current Medications: Active Medications Generic Name Dose Route Start Last Admin Trade Name Gloria PRN Reason Stop Dose Admin Buprenorphine HCl 6 mg 12/10/17 09:00 Subutex SL 12/13/17 08:59 .TAPER ADAM Taper Chlordiazepoxide 25 mg 12/09/17 12:00 12/09/17 12:42 Librium PO 12/13/17 11:59 Not Given Q6H ADAM Taper Cyanocobalamin 1,000 mcg 12/09/17 10:00 12/09/17 09:39 Vitamin B12 1000 Mcg/Ml Inj IM 12/11/17 10:01 1,000 mcg DAILY ADAM Administration Enoxaparin Sodium 40 mg 12/09/17 11:15 12/09/17 12:24 Lovenox SC 40 mg DAILY ADAM Administration Folic Acid 1 mg 12/09/17 11:00 12/09/17 11:04 Folic Acid PO 1 mg DAILY ADAM Administration Gabapentin 300 mg 12/09/17 14:00 12/09/17 13:20 Neurontin PO 300 mg TID ADAM Administration Levetiracetam 500 mg/ Dextrose 105 mls @ 420 mls/hr 12/09/17 00:00 12/09/17 12:23 IVPB 420 mls/hr Q12H ADMA Administration Lorazepam 2 mg 12/09/17 09:24 Ativan IVP Q4H PRN Anxiety Multivitamins 1 tab 12/10/17 10:00 Hexavitamin PO DAILY ADAM Thiamine HCl 100 mg 12/10/17 10:00 Vitamin B1 Tab PO DAILY ADAM Trazodone HCl 100 mg 12/09/17 22:00 Desyrel PO HS ADAM Past Psychiatric History - Past Psychiatric History Previous Treatment History: None Pertinent Medical Hx (Current Medical&Sleep Prob, Allergies): Allergies Allergy/AdvReac Type Severity Reaction Status Date / Time No Known Allergies Allergy Verified 12/08/17 12:02 Buprenorphine HCl/Naloxone HCl [Suboxone 8 mg-2 mg Sl Film] 8 mg SL DAILY Review of Systems - Review of Systems All systems: reviewed and no additional remarkable complaints except - Neurological Neurological: Dizziness, Frequent Falls. absent: Abnormal Speech, Behavioral Changes, Burning Sensations, Numbness - Psychiatric Psychiatric: Abnormal Sleep Pattern, Anxiety, Difficulty Concentrating. absent : Anhedonia, Auditory Hallucinations, Behavioral Changes, Change in Appetite, Depression, Homicidal Ideation, Mood Swings, Suicidal Ideation, Visual Hallucinations, Tactile Hallucinations Mental Status Examination - Personal Presentation Personal Presentation: Looks stated age - Affect Affect: Constricted - Motor Activity Motor Activity: Calm - Reliability in Providing Information Reliability in Providing Information: Good - Speech Speech: Organized - Mood Mood: Neutral - Formal Thought Process Formal Thought Process: No Impairment - Cognitive Functions Orientation: Person, Place, Situation, Time Sensorium: Alert Attention/Concentration: Attentive Estimate of Intelligence: Average Judgement: Intact, as evidence by: Insight regarding need for hospitalization Memory: Recent intact, as evidence by: Ability to recall events of the day, Remote intact, as evidenced by: Abilit to recall sig. life events - Risk Risk: Seizure, Withdrawal, Diminished functioning - Strength & Assets Inventory Strength & Assets Inventory: Cooperative DSM 5 DX - DSM 5 DSM 5 Diagnosis: Alcohol Withdrawal Alcohol Use Disorder, Severe Opioid Use Disorder, Moderate with moderate withdrawal - Recommended/Plan of Treatment Treatment Recommendations and Plan of Treatment: Subutex detox for heroin use Librium detox for alcohol withdrawal As needed medications Gabapentin for augmentation if needed Attend groups and activities Supportive therapy and psychoeducation [place] for abstinence CBT for relapse prevention Encourage MAT Refer to rehab or IOP Attend self-help groups as well Call on-call Psychiatrist for detox transfer when patient is cleared from ICU. 30 mins
--- NOTE | 2017-12-10 02:25 | CARD ---
APPROVED REPORT EKG Measurement Heart [id number] <Conclusion> Normal sinus rhythm Normal ECG
[2017-12-10 06:35] LABS: BASO % 0.8 % (0.0-2.0); EOS # 0.2 K/uL (0.0-0.7); EOS % 3.9 % (0.0-4.0); HEMOGLOBIN 13.2 g/dL (12.0-18.0); LYMPH % 16.5 % (20.0-40.0); MEAN CELL VOLUME 105.2 fL (80.0-94.0); MEAN CORPUSCULAR HEMOGLOBIN 36.2 pg (27.0-31.0); MEAN CORPUSCULAR HGB CONC 34.4 g/dL (33.0-37.0); MEAN PLATELET VOLUME 7.5 fL (7.2-11.7); MONO # 0.6 K/uL (0.0-0.8); MONO % 9.6 % (0.0-10.0); NEUT % 69.2 % (50.0-75.0); RBC 3.64 Mil/uL (4.40-5.90); RED CELL DISTRIBUTION WIDTH 13.2 % (11.5-14.5); WHITE BLOOD COUNT 5.8 K/uL (4.8-10.8)
[2017-12-10 06:54] LABS: ALB/GLOB RATIO 1.1 (1.0-2.1); ALBUMIN 3.6 g/dL (3.5-5.0); ALT/SGPT 45 U/L (21-72); AST/SGOT 67 U/L (17-59); BLOOD UREA NITROGEN 11 mg/dL (9-20); CALCIUM 9.1 mg/dl (8.6-10.4); GFR AFRICAN-AMERICAN > 60; GFR NON-AFRICAN AMERICAN > 60
--- NOTE | 2017-12-10 07:52 | HP ---
HISTORY OF PRESENT ILLNESS: A 47-year-old male admitted to the hospital complaining of shaking. The patient has history of alcohol abuse, heroin abuse as well. Came to the ER, advised admission. PHYSICAL EXAMINATION: GENERAL: The patient is awake, alert, with shaking of the extremities at present. Oriented to time and place. HEENT: Within normal limits. NECK: Supple. CHEST: Symmetrical. HEART: Regular. ABDOMEN: Soft. EXTREMITIES: Shaking of the of the upper extremities. ASSESSMENT AND PLAN: . The patient is to get bedrest. IV fluids. Supportive care. Denny Benson MD
[2017-12-10] MEDS: Enoxaparin 40 mg Syringe SC SCH (09:17)
[2017-12-10] MEDS: Multiple Vitamins Tab PO SCH (09:18)
[2017-12-10] MEDS: Buprenorphine Hydrochloride 2 mg SL SCH (09:31)
--- NOTE | 2017-12-10 10:09 | CP.CCUPN ---
CCU Subjective - Physician Review Events Since Last Encounter (Free Text): 12/10/17 10:09 Patient is a 47-year-old male with a history of alcoholic abuse, as well as had INR abuse, admitted with the seizures, DTs, and withdrawal symptoms. Patient now feeling better. He is not feeling any shaking or shivering. Patient is asking for Suboxone, but he feels he doesn't need it at this time, he is feeling good. On examination: Vital signs stable. Labs reviewed Chest good air entry regular heart sound nontender abdomen Assessment and recommendation: 47-year-old male admitted with the alcoholic withdrawal, DTs. Stable. Transferred to medical floor. CCU Objective - Vital Signs / Intake & Output Vital Signs (Last 4 hours): Vital Signs Temp Pulse Resp BP Pulse Ox 12/10/17 08:00 98.5 F 68 12 100 12/10/17 07:59 69 12 97/65 L 12/10/17 07:15 69 11 L 93/68 L 98 12/10/17 07:00 65 11 L 98 12/10/17 06:15 93/64 L Intake and Output (Last 8hrs): Intake & Output 12/09/17 12/10/17 12/10/17 22:59 06:59 14:59 Intake Total 764 280 180 Output Total 400 650 0 Balance 364 -370 180 Weight 132 lb 0.9 oz Intake: Intake, IV Amount 100 Right Upper arm 100 Oral 764 180 180 Output: Urine 400 650 0 Urine, Voided 400 650 0 Other: # Voids Urine, Voided 1 1 # Bowel Movements 0 0 0 - Physical Exam Head: Positive for: Atraumatic, Normocephalic Pupils: Positive for: PERRL Extroacular Muscles: Positive for: EOMI Mouth: Positive for: Moist Mucous Membranes Neck: Positive for: Normal Range of Motion Respiratory/Chest: Positive for: Clear to Auscultation Cardiovascular: Positive for: Regular Rate and Rhythm, Normal S1, S2 Abdomen: Positive for: Normal Bowel Sounds. Negative for: Tenderness Lower Extremity: Negative for: Edema Neurological: Positive for: GCS=15, Other (Tremor) Skin: Positive for: Warm, Normal Color Psychiatric: Positive for: Alert, Oriented x 3 - Medications Active Medications: Active Medications Generic Name Dose Route Start Last Admin Trade Name Freq PRN Reason Stop Dose Admin Buprenorphine HCl 6 mg 12/10/17 09:00 12/10/17 09:31 Subutex SL 12/13/17 08:59 6 mg DAILY ADAM Administration Taper Chlordiazepoxide 25 mg 12/09/17 12:00 12/10/17 06:00 Librium PO 12/13/17 11:59 25 mg Q6H ADAM Administration Taper Cyanocobalamin 1,000 mcg 12/09/17 10:00 12/10/17 09:19 Vitamin B12 1000 Mcg/Ml Inj IM 12/11/17 10:01 1,000 mcg DAILY ADAM Administration Enoxaparin Sodium 40 mg 12/09/17 11:15 12/10/17 09:17 Lovenox SC 40 mg DAILY ADAM Administration Folic Acid 1 mg 12/09/17 11:00 12/10/17 09:18 Folic Acid PO 1 mg DAILY ADAM Administration Gabapentin 300 mg 12/09/17 14:00 12/10/17 09:18 Neurontin PO 300 mg TID ADAM Administration Levetiracetam 500 mg/ Dextrose 105 mls @ 420 mls/hr 12/09/17 00:00 12/09/17 23:31 IVPB 420 mls/hr Q12H ADAM Administration Lorazepam 2 mg 12/09/17 09:24 Ativan IVP Q4H PRN Anxiety Multivitamins 1 tab 12/10/17 10:00 12/10/17 09:18 Hexavitamin PO 1 tab DAILY ADAM Administration Thiamine HCl 100 mg 12/10/17 10:00 12/10/17 09:18 Vitamin B1 Tab PO 100 mg DAILY ADAM Administration Trazodone HCl 100 mg 12/09/17 22:00 12/09/17 22:57 Desyrel PO 100 mg HS ADAM Administration - Patient Studies Lab Studies: Microbiology Studies 12/08/17 14:54 MRSA Culture (Admit) - Final Naris MRSA NOT DETECTED Lab Studies 12/10/17 12/10/17 Range/Units 06:31 06:30 WBC 5.8 (4.8-10.8) K/uL RBC 3.64 L (4.40-5.90) Mil/uL Hgb 13.2 (12.0-18.0) g/dL Hct 38.4 (35.0-51.0) % MCV 105.2 H (80.0-94.0) fL MCH 36.2 H (27.0-31.0) pg MCHC 34.4 (33.0-37.0) g/dL RDW 13.2 (11.5-14.5) % Plt Count 231 (130-400) K/uL MPV 7.5 (7.2-11.7) fL Neut % (Auto) 69.2 (50.0-75.0) % Lymph % (Auto) 16.5 L (20.0-40.0) % Rooks % (Auto) 9.6 (0.0-10.0) % Eos % (Auto) 3.9 (0.0-4.0) % Baso % (Auto) 0.8 (0.0-2.0) % Neut # (Auto) 4.0 (1.8-7.0) K/uL Lymph # (Auto) 1.0 (1.0-4.3) K/uL Rooks # (Auto) 0.6 (0.0-0.8) K/uL Eos # (Auto) 0.2 (0.0-0.7) K/uL Baso # (Auto) 0.0 (0.0-0.2) K/uL Differential Comment Sodium 144 (132-148) mmol/L Potassium 3.7 (3.6-5.2) mmol/L Chloride 107 (98-107) mmol/L Carbon Dioxide 26 (22-30) mmol/L Anion Gap 15 (10-20) BUN 11 (9-20) mg/dL Creatinine 0.7 L (0.8-1.5) mg/dL Est GFR ( Amer) > 60 Est GFR (Non-Af Amer) > 60 Random Glucose 89 (75-110) mg/dL Calcium 9.1 (8.6-10.4) mg/dl Phosphorus 4.0 (2.5-4.5) mg/dL Magnesium 1.9 (1.6-2.3) mg/dL Total Bilirubin 0.9 (0.2-1.3) mg/dL AST 67 H D (17-59) U/L ALT 45 (21-72) U/L Alkaline Phosphatase 56 (38-126) U/L Total Protein 6.9 (6.3-8.3) g/dL Albumin 3.6 (3.5-5.0) g/dL Globulin 3.4 (2.2-3.9) gm/dL Albumin/Globulin Ratio 1.1 (1.0-2.1) Laboratory Results - last 24 hr 12/10/17 12/10/17 06:30 06:31 WBC 5.8 RBC 3.64 L Hgb 13.2 Hct 38.4 MCV 105.2 H MCH 36.2 H MCHC 34.4 RDW 13.2 Plt Count 231 MPV 7.5 Neut % (Auto) 69.2 Lymph % (Auto) 16.5 L Rooks % (Auto) 9.6 Eos % (Auto) 3.9 Baso % (Auto) 0.8 Neut # (Auto) 4.0 Lymph # (Auto) 1.0 Rooks # (Auto) 0.6 Eos # (Auto) 0.2 Baso # (Auto) 0.0 Differential Comment Sodium 144 Potassium 3.7 Chloride 107 Carbon Dioxide 26 Anion Gap 15 BUN 11 Creatinine 0.7 L Est GFR ( Amer) > 60 Est GFR (Non-Af Amer) > 60 Random Glucose 89 Calcium 9.1 Phosphorus 4.0 Magnesium 1.9 Total Bilirubin 0.9 AST 67 H D ALT 45 Alkaline Phosphatase 56 Total Protein 6.9 Albumin 3.6 Globulin 3.4 Albumin/Globulin Ratio 1.1 Fingerstick Blood Sugar Results: 243 Critical Care Progress Note - Nutrition Nutrition: Nutrition Category Date Time Status Regular Diet [DIET] Diets 12/08/17 Lunch Active
[2017-12-11 06:23] LABS: ALBUMIN 3.5 g/dL (3.5-5.0); ALT/SGPT 48 U/L (21-72); AST/SGOT 51 U/L (17-59); BLOOD UREA NITROGEN 16 mg/dL (9-20); CALCIUM 8.8 mg/dl (8.6-10.4); GFR AFRICAN-AMERICAN > 60; GFR NON-AFRICAN AMERICAN > 60
[2017-12-11 06:27] LABS: BASO # 0.1 K/uL (0.0-0.2); BASO % 0.9 % (0.0-2.0); EOS # 0.3 K/uL (0.0-0.7); EOS % 5.5 % (0.0-4.0); LYMPH % 18.5 % (20.0-40.0); MEAN CELL VOLUME 105.7 fL (80.0-94.0); MEAN CORPUSCULAR HEMOGLOBIN 36.4 pg (27.0-31.0); MEAN CORPUSCULAR HGB CONC 34.4 g/dL (33.0-37.0); MEAN PLATELET VOLUME 7.6 fL (7.2-11.7); MONO # 0.8 K/uL (0.0-0.8); MONO % 14.1 % (0.0-10.0); NEUT # 3.3 K/uL (1.8-7.0); RBC 3.29 Mil/uL (4.40-5.90); RED CELL DISTRIBUTION WIDTH 13.5 % (11.5-14.5); WHITE BLOOD COUNT 5.4 K/uL (4.8-10.8)
[2017-12-11] MEDS: Enoxaparin 40 mg Syringe SC SCH (09:36)
[2017-12-11] MEDS: Multiple Vitamins Tab PO SCH (09:36)
[2017-12-11] MEDS: Buprenorphine Hydrochloride 2 mg SL SCH (09:37)
[2017-12-11 16:08] VITALS: RESP 20
[2017-12-12] MEDS ORDERED: DiphenhydrAMINE 50 mg/ml Inj IVP STA (02:59)
--- NOTE | 2017-12-12 07:44 | CP.PCM.PN ---
Subjective - Date & Time of Evaluation Date of Evaluation: 12/12/17 Time of Evaluation: 07:42 - Subjective Subjective: Mr. Quintanilla was seen and examined at the bedside. He is alert, but very sleepy. According to staff, patient was very agitated and combative, called code raissa numerous times, was given ativan and benadryl at around 3 am. He is not able to participate with assessment, but moves all extremities without any problem.He remains on 1:1 sitter for patient safety. Objective - Vital Signs/Intake and Output Vital Signs (last 24 hours): Temp Pulse Resp BP Pulse Ox 98.1 F 81 20 151/88 H 99 12/11/17 16:07 12/11/17 16:07 12/11/17 16:07 12/11/17 16:07 12/11/17 16:07 Intake and Output: 12/12/17 12/12/17 06:59 18:59 Intake Total 400 Balance 400 - Medications Medications: Current Medications Buprenorphine HCl (Subutex) 4 mg SL DAILY [facility] PRN Reason: Taper Stop: 12/13/17 08:59 Last Admin: 12/11/17 09:37 Dose: 4 mg Chlordiazepoxide (Librium) 25 mg PO Q12H [facility] PRN Reason: Taper Stop: 12/13/17 11:59 Last Admin: 12/11/17 23:47 Dose: 25 mg Enoxaparin Sodium (Lovenox) 40 mg SC DAILY [facility] Last Admin: 12/11/17 09:36 Dose: 40 mg Folic Acid (Folic Acid) 1 mg PO DAILY [facility] Last Admin: 12/11/17 09:36 Dose: 1 mg Gabapentin (Neurontin) 300 mg PO TID [facility] Last Admin: 12/11/17 18:15 Dose: 300 mg Ibuprofen (Motrin Tab) 400 mg PO Q6H PRN PRN Reason: Pain, moderate (4-7) Last Admin: 12/12/17 00:34 Dose: 400 mg Lorazepam (Ativan) 2 mg IVP Q4H PRN PRN Reason: Anxiety Last Admin: 12/12/17 06:20 Dose: 2 mg Multivitamins (Hexavitamin) 1 tab PO DAILY [facility] Last Admin: 12/11/17 09:36 Dose: 1 tab Nicotine (Nicoderm Cq) 1 patch TD DAILY [facility] Last Admin: 12/11/17 13:53 Dose: 1 patch Thiamine HCl (Vitamin B1 Tab) 100 mg PO DAILY [facility] Last Admin: 12/11/17 09:37 Dose: 100 mg Trazodone HCl (Desyrel) 100 mg PO HS [facility] Last Admin: 12/11/17 22:10 Dose: 100 mg - Labs Labs: 12/11/17 06:00 12/11/17 06:00 PT 11.2 SECONDS (9.7-12.2) 12/09/17 09:38 INR 1.0 12/09/17 09:38 APTT 31 SECONDS (21-34) 12/09/17 09:38 - Constitutional Appears: In Acute Distress - Head Exam Head Exam: NORMAL INSPECTION - Eye Exam Eye Exam: PERRL - Neurological Exam Neuro motor strength exam: Left Upper Extremity: 4, Right Upper Extremity: 4, Left Lower Extremity: 4, Right Lower Extremity: 4 Additional comments: awake, moves all extremities. Assessment and Plan (1) Alcohol withdrawal seizure Assessment & Plan: Case discussed with Dr. Smith, Continue WA protocol, conservative management and recommend detox. for discharge planning. Status: Acute
--- NOTE | 2017-12-12 08:56 | PN ---
DATE: 12/10/2017 SUBJECTIVE: The patient has been shaking, weak, supportive care. Denny Benson MD
--- NOTE | 2017-12-12 08:57 | PN ---
DATE: 12/10/2017 SUBJECTIVE: The patient is improving. Shaking decreased. Continue supportive care. IV fluids. Denny Benson MD
--- NOTE | 2017-12-12 09:56 | CP.PCM.PN ---
Subjective - Date & Time of Evaluation Date of Evaluation: 12/12/17 Time of Evaluation: 09:54 - Subjective Subjective: PGY2 Progress Note for Dr. Benson; all management as per Dr. Benson This patient was seen and examined at bedside this AM; is still on 1;1 observation for tara downey called last night was given 1mg of ativan which seemed to sedate the patient; patient is very drousy but arousable; seems annoyed by interview; arms are shaking when held out, tongue fasiculations present; denies any symptoms except for "pain all over". Was initially admitted to the ICU for DT's and downgraded over the weekend. Objective - Vital Signs/Intake and Output Vital Signs (last 24 hours): Temp Pulse Resp BP Pulse Ox 98.1 F 81 20 151/88 H 99 12/11/17 16:07 12/11/17 16:07 12/11/17 16:07 12/11/17 16:07 12/11/17 16:07 Intake and Output: 12/12/17 12/12/17 06:59 18:59 Intake Total 400 Balance 400 - Medications Medications: Current Medications Buprenorphine HCl (Subutex) 2 mg SL DAILY [facility] PRN Reason: Taper Stop: 12/13/17 08:59 Last Admin: 12/11/17 09:37 Dose: 4 mg Chlordiazepoxide (Librium) 25 mg PO Q12H [facility] PRN Reason: Taper Stop: 12/13/17 11:59 Last Admin: 12/11/17 23:47 Dose: 25 mg Enoxaparin Sodium (Lovenox) 40 mg SC DAILY [facility] Last Admin: 12/11/17 09:36 Dose: 40 mg Folic Acid (Folic Acid) 1 mg PO DAILY [facility] Last Admin: 12/11/17 09:36 Dose: 1 mg Gabapentin (Neurontin) 300 mg PO TID [facility] Last Admin: 12/11/17 18:15 Dose: 300 mg Ibuprofen (Motrin Tab) 400 mg PO Q6H PRN PRN Reason: Pain, moderate (4-7) Last Admin: 12/12/17 00:34 Dose: 400 mg Lorazepam (Ativan) 2 mg IVP Q4H PRN PRN Reason: Anxiety Last Admin: 12/12/17 06:20 Dose: 2 mg Multivitamins (Hexavitamin) 1 tab PO DAILY [facility] Last Admin: 12/11/17 09:36 Dose: 1 tab Nicotine (Nicoderm Cq) 1 patch TD DAILY [facility] Last Admin: 12/11/17 13:53 Dose: 1 patch Thiamine HCl (Vitamin B1 Tab) 100 mg PO DAILY [facility] Last Admin: 12/11/17 09:37 Dose: 100 mg Trazodone HCl (Desyrel) 100 mg PO HS [facility] Last Admin: 12/11/17 22:10 Dose: 100 mg - Labs Labs: 12/11/17 06:00 12/11/17 06:00 PT 11.2 SECONDS (9.7-12.2) 12/09/17 09:38 INR 1.0 12/09/17 09:38 APTT 31 SECONDS (21-34) 12/09/17 09:38 - Constitutional Appears: Non-toxic, Chronically Ill - Head Exam Head Exam: ATRAUMATIC - Eye Exam Eye Exam: EOMI, PERRL - ENT Exam ENT Exam: Mucous Membranes Moist - Neck Exam Neck Exam: Full ROM. absent: Lymphadenopathy - Respiratory Exam Respiratory Exam: Clear to Ausculation Bilateral, NORMAL BREATHING PATTERN. absent: Rales, Rhonchi, Wheezes - Cardiovascular Exam Cardiovascular Exam: Tachycardia, +S1, +S2 - GI/Abdominal Exam GI & Abdominal Exam: Soft, Normal Bowel Sounds. absent: Tenderness - Extremities Exam Extremities Exam: Full ROM. absent: Calf Tenderness - Back Exam Back Exam: NORMAL INSPECTION. absent: CVA tenderness (L), CVA tenderness (R) - Neurological Exam Neurological Exam: Awake (Anox3; slightly agitated; fasiculations present in tongue and arms are shaky, diaphoretic), Oriented x3 - Psychiatric Exam Psychiatric exam: absent: Normal Affect - Skin Skin Exam: Warm Assessment and Plan - Assessment and Plan (Free Text) Assessment: 47yo M admitted for DT's/EtOH withdrawal DT's; resolved; EtOH withdrawal -Librium Taper, Ativan PRN, CIWA protocol, thiamine/folate daily -patient is still actively withdrawing although vital signs are stable -VSS Q4H -mag/phosph WNL Opiate Abuse/Dependence -Buprenorphine -Psych Consult; thank you for your help; Dr. Aleksander Lemos -SCD -GI prophylaxis not indicated as patient is eating -f/u HIV, Hepatitis, and RPR All management as per Dr. Benson
[2017-12-12] MEDS: Multiple Vitamins Tab PO SCH (10:23)
[2017-12-12] MEDS: Enoxaparin 40 mg Syringe SC SCH (10:25)
[2017-12-12] MEDS: Buprenorphine Hydrochloride 2 mg SL SCH (10:38)
[2017-12-12 11:50] LABS: BASO # 0.1 K/uL (0.0-0.2); BASO % 0.8 % (0.0-2.0); EOS # 0.2 K/uL (0.0-0.7); EOS % 3.5 % (0.0-4.0); HEMOGLOBIN 12.8 g/dL (12.0-18.0); LYMPH # 0.6 K/uL (1.0-4.3); MEAN CELL VOLUME 104.8 fL (80.0-94.0); MEAN CORPUSCULAR HEMOGLOBIN 37.1 pg (27.0-31.0); MEAN CORPUSCULAR HGB CONC 35.5 g/dL (33.0-37.0); MEAN PLATELET VOLUME 7.6 fL (7.2-11.7); MONO % 14.3 % (0.0-10.0); NEUT # 5.2 K/uL (1.8-7.0); NEUT % 73.4 % (50.0-75.0); PLATELET COUNT 249 K/uL (130-400); RBC 3.44 Mil/uL (4.40-5.90)
[2017-12-12 12:04] LABS: ALB/GLOB RATIO 1.1 (1.0-2.1); ALBUMIN 4.1 g/dL (3.5-5.0); ALT/SGPT 53 U/L (21-72); AST/SGOT 64 U/L (17-59); BLOOD UREA NITROGEN 9 mg/dL (9-20); CALCIUM 9.3 mg/dl (8.6-10.4); GFR AFRICAN-AMERICAN > 60; GFR NON-AFRICAN AMERICAN > 60
[2017-12-12 12:27] LABS: EOSINOPHIL 5 % (0-4); LYMPHOCYTE 6 % (20-40); MONOCYTE 16 % (0-10); NEUTROPHIL 73 % (50-75); PLATELET ESTIMATE NORMAL (NORMAL); TOTAL CELLS COUNTED 100
--- NOTE | 2017-12-12 13:24 | PCM.PYCHPN ---
Psychiatric Progress Note - Psychiatric Progress Note Patient seen today, length of contact: 22 min Patient Chief Complaint: "I need my suboxone" Problems Identified/Issues Discussed: The pt is seen, chart reviewed, case discussed with staff. Support and psychoeducation given, CO used briefly No SEs from medications, risks discussed. After care discussed - refusing [employer] but would go to another program. SW to given hi m the list as they all have wait-lists Pt's detox is ending tomorrow am He is somewhat agitated and confused but not in DT at this point He mixed dates, days and said it was "May" but he knows he is at [facility] He forgot that he took his subutex this am etc. Reassurance given Medication Change: Yes (see hpi) Medical Record Reviewed: Yes Mental Status Examination - Cognitive Function Orientation: Person, Place, Situation, Time Memory: Impaired Attention: Poor Concentration: Poor Association: WNL Fund of Knowledge: WNL - Mood Mood: Anxious - Affect Affect: Constricted - Speech Speech: Slurred - Formal Thought Process Formal Thought Process: No Impairment - Suicidal Ideation Suicidal Ideation: No - Homicidal Ideation Homicidal Ideation: No Goal/Treatment Plan - Goal/Treatment Plan Need for Continued Stay: Discharge may exacerbated symptoms, Severe functional impairment, Other (medical) Progress Toward Problem(s) and Goals/Treatment Plan: Subutex detox for heroin use ending tomorrow. He got 2 mg today and will get another (last) 2 mg tomorrow am Librium detox for alcohol withdrawal will also end tomorrow am He was given ativan prn for agitation As needed medications Gabapentin for augmentation Supportive therapy and psychoeducation CO for abstinence Refer to rehab - He is REFUSING [facility] rehab but would consider others, which all have wait lists. Pt agrees to wait and call from home and wants to go home tomorrow the latest b/ c he is worried about his other Attend self-help groups as well after d/c
[2017-12-13 07:50] VITALS: BP 106/77; PULSE 77; TEMP 98.1; O2SAT 98
[2017-12-13 07:52] LABS: BASO # 0.1 K/uL (0.0-0.2); BASO % 0.9 % (0.0-2.0); EOS # 0.2 K/uL (0.0-0.7); EOS % 4.2 % (0.0-4.0); HEMOGLOBIN 12.9 g/dL (12.0-18.0); LYMPH % 18.2 % (20.0-40.0); MEAN CELL VOLUME 105.7 fL (80.0-94.0); MEAN CORPUSCULAR HEMOGLOBIN 36.8 pg (27.0-31.0); MEAN CORPUSCULAR HGB CONC 34.9 g/dL (33.0-37.0); MEAN PLATELET VOLUME 7.3 fL (7.2-11.7); MONO % 18.6 % (0.0-10.0); NEUT # 3.2 K/uL (1.8-7.0); NEUT % 58.1 % (50.0-75.0); NRBC % 0.1 % (0.0-2.0); RBC 3.5 Mil/uL (4.40-5.90); RED CELL DISTRIBUTION WIDTH 13.1 % (11.5-14.5); WHITE BLOOD COUNT 5.5 K/uL (4.8-10.8)
[2017-12-13 08:09] LABS: ALB/GLOB RATIO 1.1 (1.0-2.1); ALBUMIN 3.8 g/dL (3.5-5.0); ALT/SGPT 53 U/L (21-72); AST/SGOT 46 U/L (17-59); BLOOD UREA NITROGEN 10 mg/dL (9-20); CALCIUM 9.4 mg/dl (8.6-10.4); GFR AFRICAN-AMERICAN > 60; GFR NON-AFRICAN AMERICAN > 60
[2017-12-13 08:35] LABS: HEPATITIS B SURFACE AG Negative (NEGATIVE)
[2017-12-13 08:41] LABS: HEPATITIS A IGM NEGATIVE (NEGATIVE); HEPATITIS B CORE AB NEGATIVE (NEGATIVE)
[2017-12-13 08:53] LABS: HEPATITIS C ANTIBODY NEGATIVE (NEGATIVE)
[2017-12-13] MEDS ORDERED: Buprenorphine Hydrochloride 2 mg SL ONE (09:00)
[2017-12-13] MEDS: Multiple Vitamins Tab PO SCH (09:15)
[2017-12-13] MEDS: Enoxaparin 40 mg Syringe SC SCH (09:17)
--- NOTE | 2017-12-13 09:41 | CP.PCM.PN ---
Subjective - Date & Time of Evaluation Date of Evaluation: 12/13/17 Time of Evaluation: 09:40 - Subjective Subjective: PGY2 Note for Dr. Calderon; all management as per Dr. Calderon This patient was seen and examined at bedside this AM; denies any current symptoms except "i want my meds"; he denies fevers/chills, NUNEZ, CP, SOB, abdominal pain, N/V/D, dysuria/freq/urg or lower extremity pain/swelling, AV hallucinations, is ANOx3 Objective - Vital Signs/Intake and Output Vital Signs (last 24 hours): Temp Pulse Resp BP Pulse Ox 98.1 F 77 20 106/77 98 12/13/17 07:49 12/13/17 07:49 12/13/17 07:49 12/13/17 07:49 12/13/17 07:49 Intake and Output: 12/13/17 12/13/17 06:59 18:59 Intake Total 200 Balance 200 - Medications Medications: Current Medications Chlordiazepoxide (Librium) 25 mg PO Q24H [facility] PRN Reason: Taper Stop: 12/13/17 11:59 Last Admin: 12/12/17 11:33 Dose: 25 mg Chlordiazepoxide (Librium) 25 mg PO BID [facility] Stop: 12/13/17 10:01 Last Admin: 12/13/17 09:22 Dose: 25 mg Enoxaparin Sodium (Lovenox) 40 mg SC DAILY [facility] Last Admin: 12/13/17 09:17 Dose: 40 mg Folic Acid (Folic Acid) 1 mg PO DAILY [facility] Last Admin: 12/13/17 09:15 Dose: 1 mg Gabapentin (Neurontin) 300 mg PO TID [facility] Last Admin: 12/13/17 09:16 Dose: 300 mg Hydroxyzine HCl (Atarax) 50 mg PO Q6H PRN PRN Reason: Anxiety Ibuprofen (Motrin Tab) 400 mg PO Q6H PRN PRN Reason: Pain, moderate (4-7) Last Admin: 12/12/17 00:34 Dose: 400 mg Lorazepam (Ativan) 1 mg IVP Q4H PRN PRN Reason: Agitation Last Admin: 12/12/17 19:45 Dose: 1 mg Multivitamins (Hexavitamin) 1 tab PO DAILY [facility] Last Admin: 12/13/17 09:15 Dose: 1 tab Nicotine (Nicoderm Cq) 1 patch TD DAILY [facility] Last Admin: 12/13/17 09:17 Dose: 1 patch Quetiapine Fumarate (Seroquel) 100 mg PO HS [facility] Last Admin: 12/12/17 21:19 Dose: 100 mg Thiamine HCl (Vitamin B1 Tab) 100 mg PO DAILY [facility] Last Admin: 12/13/17 09:16 Dose: 100 mg Trazodone HCl (Desyrel) 100 mg PO HS [facility] Last Admin: 12/12/17 21:18 Dose: 100 mg - Labs Labs: 12/13/17 07:39 12/13/17 07:39 PT 11.2 SECONDS (9.7-12.2) 12/09/17 09:38 INR 1.0 12/09/17 09:38 APTT 31 SECONDS (21-34) 12/09/17 09:38 Assessment and Plan - Assessment and Plan (Free Text) Assessment: Appears: Non-toxic, Chronically Ill - Head Exam Head Exam: ATRAUMATIC - Eye Exam Eye Exam: EOMI, PERRL - ENT Exam ENT Exam: Mucous Membranes Moist - Neck Exam Neck Exam: Full ROM. absent: Lymphadenopathy - Respiratory Exam Respiratory Exam: Clear to Ausculation Bilateral, NORMAL BREATHING PATTERN. absent: Rales, Rhonchi, Wheezes - Cardiovascular Exam Cardiovascular Exam: Tachycardia, +S1, +S2 - GI/Abdominal Exam GI & Abdominal Exam: Soft, Normal Bowel Sounds. absent: Tenderness - Extremities Exam Extremities Exam: Full ROM. absent: Calf Tenderness - Back Exam Back Exam: NORMAL INSPECTION. absent: CVA tenderness (L), CVA tenderness (R) - Neurological Exam Neurological Exam: Awake ANOx3 normal gait answering questions appropriately - Psychiatric Exam Psychiatric exam: absent: Normal Affect - Skin Skin Exam: Warm Assessment and Plan - Assessment and Plan (Free Text) Assessment: 47yo M admitted for DT's/EtOH withdrawal DT's; resolved; EtOH withdrawal; resolved -Librium Taper, Ativan PRN, CIWA protocol, thiamine/folate daily -patient is still actively withdrawing although vital signs are stable -VSS Q4H -mag/phosph WNL Opiate Abuse/Dependence -Buprenorphine -Psych Consult; thank you for your help; Dr. Aleksander Lemos -SCD -GI prophylaxis not indicated as patient is eating -f/u HIV, Hepatitis, and RPR The patient is stable for d/c he needs to abstain from drinking alcohol he needs to take daily multivitamins provided he needs to inquire about detox as she does not wish to go to [facility] detox All management as per Dr. Calderon
--- NOTE | 2017-12-13 14:03 | PCM.PYCHPN ---
Psychiatric Progress Note - Psychiatric Progress Note Patient seen today, length of contact: 15 min Patient Chief Complaint: "I am OK" Problems Identified/Issues Discussed: He is better Less confused but this is not his baseline, though. He agrees to follow up with a suboxone dr - how to find one discussed, i.e. [email or web address] He will benefit form an IOP ([facility] in [place] for instance) or rehab No psych issues except for irritability Support given Detox ended Medication Change: Yes (see hpi) Medical Record Reviewed: Yes Mental Status Examination - Cognitive Function Orientation: Person, Place, Situation, Time Memory: Impaired (less) Attention: Poor Concentration: Poor Association: WNL Fund of Knowledge: WNL - Mood Mood: Anxious - Affect Affect: Constricted - Speech Speech: Slurred - Formal Thought Process Formal Thought Process: No Impairment - Suicidal Ideation Suicidal Ideation: No - Homicidal Ideation Homicidal Ideation: No Goal/Treatment Plan - Goal/Treatment Plan Need for Continued Stay: Other (medical) Progress Toward Problem(s) and Goals/Treatment Plan: Detox ended SW to refer to addiction tx, ie IOP Suboxone maintenance as an outpatient recommended Psych will sign off
== END 2017-12-13 14:35 | disposition home or self-care (01) | DRG 744 ==
LOC: C.ER 11:24 → C.9E 12:34 → C.9I 13:01 → C.3T 12-11 14:58
PROVIDERS: ADMIT Internal Medicine Pulmonary Disease; ATTEND Internal Medicine Pulmonary Disease
PROC: 0CQ0XZZ Repair Upper Lip, External Approach (ICD-10-PCS; 2017-12-08)
PROC: HZ2ZZZZ Detoxification Services for Substance Abuse Treatment (ICD-10-PCS; principal; 2017-12-09)
PROC: HZ59ZZZ Individual Psychotherapy for Substance Abuse Treatment, Supportive (ICD-10-PCS; 2017-12-09)
PROC: HZ46ZZZ Group Counseling for Substance Abuse Treatment, Psychoeducation (ICD-10-PCS; 2017-12-09)
DX: F10.231 Alcohol dependence with withdrawal delirium (principal); G40.509 Epileptic seizures related to external causes, not intractable, without status epilepticus; F11.23 Opioid dependence with withdrawal; E87.6 Hypokalemia; S01.511A Laceration without foreign body of lip, initial encounter; F17.210 Nicotine dependence, cigarettes, uncomplicated; X58.XXXA Exposure to other specified factors, initial encounter; Y92.9 Unspecified place or not applicable

== ENCOUNTER 2018-04-21 10:18 | Inpatient (IN) | payer MEDICAID ==
[2018-04-21 11:20] LABS: BASO % 0.9 % (0.0-2.0); EOS # 0.1 K/uL (0.0-0.7); EOS % 1.2 % (0.0-4.0); HEMOGLOBIN 13.3 g/dL (12.0-18.0); LYMPH # 0.4 K/uL (1.0-4.3); LYMPH % 7.4 % (20.0-40.0); MEAN CELL VOLUME 106.3 fL (80.0-94.0); MEAN CORPUSCULAR HEMOGLOBIN 36.6 pg (27.0-31.0); MEAN CORPUSCULAR HGB CONC 34.4 g/dL (33.0-37.0); MEAN PLATELET VOLUME 7.4 fL (7.2-11.7); MONO # 0.5 K/uL (0.0-0.8); MONO % 9.2 % (0.0-10.0); NEUT # 4.1 K/uL (1.8-7.0); NEUT % 81.3 % (50.0-75.0); PLATELET COUNT 206 K/uL (130-400); RBC 3.64 Mil/uL (4.40-5.90); RED CELL DISTRIBUTION WIDTH 13.9 % (11.5-14.5); WHITE BLOOD COUNT 5.1 K/uL (4.8-10.8)
[2018-04-21 11:32] LABS: ALB/GLOB RATIO 1.5 (1.0-2.1); ALBUMIN 4.4 g/dL (3.5-5.0); ALT/SGPT 61 U/L (21-72); AST/SGOT 125 U/L (17-59); BLOOD UREA NITROGEN 10 mg/dL (9-20); CALCIUM 9.2 mg/dl (8.6-10.4); GFR NON-AFRICAN AMERICAN > 60
[2018-04-21 11:51] LABS: LYMPHOCYTE 9 % (20-40); MONOCYTE 9 % (0-10); NEUTROPHIL 82 % (50-75); TOTAL CELLS COUNTED 100
[2018-04-21 11:52] LABS: ANISOCYTOSIS SLIGHT; HYPOCHROMIC SLIGHT; PLATELET ESTIMATE NORMAL (NORMAL); POLYCHROMIC SLIGHT
[2018-04-21 14:04] LABS: URINE BILIRUBIN NEGATIVE (NEGATIVE); URINE CLARITY Hazy (Clear); URINE COLOR Yellow (YELLOW); URINE GLUCOSE (UA) 2+ mg/dL (Normal); URINE PROTEIN 2+ mg/dL (NEGATIVE)
[2018-04-21 14:06] LABS: URINE BLOOD TRACE (NEGATIVE); URINE LEUKOCYTE ESTERASE TRACE Leu/uL (Negative)
--- NOTE | 2018-04-21 14:29 | C.PDOC ---
History Of Present Illness 47 y/o male presents to ED requesting detox from alcohol and heroin. Last drink was at 6am. Denies chest pain, shortness of breath, n/v/d, abdominal pain, fever, chills, or physical complaints at this time. No SI/HI. Time Seen by Provider: 04/21/18 10:43 Chief Complaint (Nursing): Substance Abuse History Per: Patient History/Exam Limitations: no limitations Onset/Duration Of Symptoms: Gradual Suicide/Self Injury Attempted (Context): None Modifying Factor(s): Alcohol Severity: None Pain Scale Rating Of: 0 Associated Symptoms: denies: Suicidal Thoughts, Suicidal Plan Involuntary Hold By: None Recent travel outside of the [place]: No Additional History Per: Patient Past Medical History Reviewed: Historical Data, Nursing Documentation, Vital Signs Vital Signs: Last Vital Signs Temp 97.9 F 04/21/18 10:44 Pulse 75 04/21/18 11:32 Resp 10 L 04/21/18 11:32 BP 117/80 04/21/18 11:32 Pulse Ox 96 04/21/18 11:32 - Medical History PMH: Seizures (alcohol induced) Denies: Diabetes, Hepatitis, HIV, HTN, Chronic Kidney Disease, Sexually Trans mitted Disease - [facility] Procedures DETOXIFICATION SERVICES FOR SUBSTANCE ABUSE TREATMENT (12/08/17) GROUP MEDIA LIAISON OFFICER FOR SUBSTANCE ABUSE TREATMENT, PSYCHOEDUCATION (12/08/17) INDIV PSYCHOTHERAPY FOR SUBSTANCE ABUSE TREATMENT, SUPPORT (12/08/17) INDIV PSYCHOTHERAPY FOR SUBSTANCE ABUSE, COGNITIV BEHAVIORAL (08/08/17) INDIV PSYCHOTHERAPY FOR SUBSTANCE ABUSE, PSYCHOEDUCATION (08/08/17) PHARMACOTHERAPY FOR SUBSTANCE ABUSE, NICOTINE REPLACE (12/13/16) REPAIR UPPER LIP, EXTERNAL APPROACH (12/08/17) Family History: States: Unknown Family Hx - Social History Hx Tobacco Use: Yes (light smoker) Hx Alcohol Use: Yes Hx Substance Use: Yes (heroin) - Immunization History Hx Tetanus Toxoid Vaccination: No Hx Influenza Vaccination: No Hx Pneumococcal Vaccination: No Review Of Systems Except As Marked, All Systems Reviewed And Found Negative. Constitutional: Negative for: Fever, Chills Cardiovascular: Negative for: Chest Pain Respiratory: Negative for: Shortness of Breath Gastrointestinal: Negative for: Nausea, Vomiting, Abdominal Pain Neurological: Negative for: Headache, Dizziness Psych: Negative for: Suicidal ideation, Withdrawal Physical Exam - Physical Exam Appears: Non-toxic, No Acute Distress Skin: Normal Color, Warm, Dry Head: Atraumatic, Normacephalic Eye(s): bilateral: Normal Inspection Oral Mucosa: Moist, Other (EtOH on breath) Neck: Normal ROM, Supple Chest: Symmetrical Cardiovascular: Rhythm Regular, No Murmur Respiratory: Normal Breath Sounds, No Rales, No Rhonchi, No Wheezing Gastrointestinal/Abdominal: Soft, No Tenderness Extremity: Normal ROM, No Deformity Neurological/Psych: Oriented x3, Normal Speech ED Course And Treatment - Laboratory Results Result Diagrams: 04/21/18 11:11 04/21/18 11:11 O2 Sat by Pulse Oximetry: 96 (RA) Pulse Ox Interpretation: Normal Medical Decision Making Medical Decision Making: Plan: * Blood work * Urinalysis * Ativan * Librium Disposition - Disposition Disposition: HOSPITALIZED Disposition Time: 15:00 Condition: STABLE - Clinical Impression Clinical Impression: Opiate dependence - PA / ECONOMIC RESEARCH ANALYST / Resident Statement MD/DO has reviewed & agrees with the documentation as recorded. - Scribe Statement The provider has reviewed the documentation as recorded by the Scribe KP All medical record entries made by the Scribe were at my direction and personally dictated by me. I have reviewed the chart and agree that the record accurately reflects my personal performance of the history, physical exam, medical decision making, and the department course for this patient. I have also personally directed, reviewed, and agree with the discharge instructions and disposition.
[2018-04-21 14:35] LABS: BARBITURATES, UR NEGATIVE (NEGATIVE); PHENCYCLIDINE, UR NEGATIVE (NEGATIVE)
[2018-04-21 15:00] LABS: BENZODIAZEPINES, UR POSITIVE (NEGATIVE); OPIATES, UR POSITIVE (NEGATIVE)
--- NOTE | 2018-04-21 15:52 | PCM.BM ---
<Elia Calderon - Last Filed: 04/21/18 15:50> Treatment Plan Problems - Problems identified on initial assessmt potential for opiate withdrawal Date Initiated: 04/21/18 Time Initiated: 15:51 Status: Active Treatment assets and liabiliti Patient Assests: ADL independent, physically healthy Patient Liabilities: substance abuse, medical problems - Milieu Protocol Maintain good personal hygiene: daily Encourage regular showers, daily Remind patient to perform daily oral care, daily Assist patient to perform ADL's Conduct patient checks and document Observation sheet: Q15 minutes Maintain personal safety: every shift Educate patient to report safety concerns to staff, every shift Monitor environment for contraband/sharps Medication safety: Monitor for expected outcome, potential side effects: every shift, Assess barriers to learning: every shift, Assess readiness for medication education: every shift <Martine Real - Last Filed: 04/27/18 08:53> - Diagnosis (1) Opiate dependence Status: Acute Interventions: 04/24/18 18:53 * Assess 7x/week regarding severity of withdrawal * Educate regarding risks, benefits, side effects and alternatives of medications * Use Motivational Interviewing for abstinence * Use CBT for relapse prevention * Medication management for withdrawal symptoms * Encourage medication assisted treatment * (2) Alcohol dependence Status: Acute Interventions: 04/24/18 18:53 * Assess 7x/week regarding severity of withdrawal * Educate regarding risks, benefits, side effects and alternatives of medications * Use Motivational Interviewing for abstinence * Use CBT for relapse prevention * Medication management for withdrawal symptoms * Encourage medication assisted treatment *
[2018-04-21] MEDS ORDERED: Buprenorphine Hydrochloride 2 mg SL ONE ×2 (17:10→18:04)
[2018-04-21] MEDS ORDERED: Aluminum Hydroxide/Magnesium Hydroxide Susp (30 mL) PO PRN (17:49)
[2018-04-21] MEDS ORDERED: Aluminum Hydroxide/Magnesium Hydroxide Susp (30 mL) PO SCH (18:00)
[2018-04-22] MEDS ORDERED: Buprenorphine Hydrochloride 2 mg SL ONE (15:45)
[2018-04-23] MEDS ORDERED: Buprenorphine Hydrochloride 2 mg SL ONE (10:00)
--- NOTE | 2018-04-23 21:37 | PCM.PSYCH ---
Initial Psychiatric Evaluation - Initial Psychiatric Evaluation Legal Status: Capacity Chief Complaint (in patient's own words): I WANT TO GET SOBER Patient's Reaction to Hospitalization: I NEED TO BE HERE History of Present Illness and Precipitating Events: PT IS A 47N YEAR OLD DOMICILED DISABLED MALE WHO CAME TO [facility] TO DETOX FROM ALCOHOL AND HEROIN PT STARTED DRINKING ALCOHOL HEN BIANCA WAS 9 YEARS OLD. HE USUALLY DRINKS A 12 PACK AND 2 40 OZ BEERS. JE STARTED USING HEROINABOUT AGE 26. HE USES 2-5 BAGS A DAYPT ÁNGEL HAD ONE PREVIOUS DETOX AT [facility]. HE HAS NEVER BEEN IN REHAB HIS FATHER IS AN ALCOHOLIC. PT HAS NO LEGAQL.NMILITARY OR PSYCHIATRIC HISTORY PT IS HAVING STOMACH CRAMPS. COLD AND HOT SWEATS AND MUSCLE AND JOINT ACHES. Current Medications: Active Medications Generic Name Dose Route Start Last Admin Trade Name Freq PRN Reason Stop Dose Admin Acetaminophen 650 mg 04/21/18 16:53 04/22/18 16:02 Tylenol 325mg Tab PO 650 mg Q6 PRN Administration Pain, moderate (4-7) Al Hydrox/Mg Hydrox/Simethicone 30 ml 04/21/18 17:49 Maalox 30 Ml PO TID PRN Indigestion / Heartburn Clonidine HCl 0.1 mg 04/21/18 17:00 04/23/18 16:18 Catapres PO 0.1 mg Q8 PRN Administration Opiate reversal Diphenhydramine HCl 50 mg 04/23/18 20:56 04/23/18 21:02 Benadryl PO 50 mg Q4 PRN Administration eps Haloperidol 5 mg 04/23/18 20:54 04/23/18 21:02 Haldol PO 5 mg Q4 PRN Administration Agitation Hydroxyzine HCl 25 mg 04/21/18 17:09 04/23/18 16:18 Atarax PO 25 mg Q8 PRN Administration Anxiety Ibuprofen 600 mg 04/22/18 16:59 Motrin Tab PO Q6 PRN pain Influenza Virus Vaccine 60 mcg 04/24/18 10:00 Fluzone Quad [id number] IM 04/24/18 10:01 .ONCE ONE Loperamide HCl 4 mg 04/21/18 16:58 Imodium PO Q8 PRN Diarrhea Lorazepam 1 mg 04/21/18 20:56 04/23/18 21:02 Ativan PO 1 mg Q4H PRN Administration Symptoms of alcohol withdrawl Lorazepam 2 mg 04/23/18 16:30 04/23/18 16:40 Ativan PO 04/28/18 16:29 2 mg Q8H ADAM Administration Taper Nicotine 1 patch 04/23/18 10:30 04/23/18 10:42 Nicoderm Cq TD 1 patch DAILY ADAM Administration Ondansetron HCl 4 mg 04/21/18 18:30 Zofran Tab PO Q4 PRN Nausea/Vomiting Trazodone HCl 100 mg 04/23/18 22:00 04/23/18 21:02 Desyrel PO 100 mg HS ADAM Administration Past Psychiatric History - Past Psychiatric History Previous Treatment History: None Pertinent Medical Hx (Current Medical&Sleep Prob, Allergies): Allergies Allergy/AdvReac Type Severity Reaction Status Date / Time No Known Allergies Allergy Verified 04/21/18 10:55 Buprenorphine HCl/Naloxone HCl [Suboxone 8 mg-2 mg Sl Film] 8 mg SL DAILY 12/08/17 QUEtiapine [SEROquel] 100 mg PO HS #30 tab 12/13/17 RX: Folic Acid 1 mg PO DAILY #90 tab 12/13/17 RX: Multivitamin [Daily Vitamin Formula] 1 each PO DAILY #90 tablet 12/13/17 RX: Thiamine [Vitamin B1 Tab] 100 mg PO DAILY #90 tab 12/13/17 Review of Systems - Constitutional Constitutional: Chills, Sweats - EENT Eyes: UNREMARKABLE Ears: UNREMARKABLE Nose/Mouth/Throat: UNREMARKABLE - Cardiovascular Cardiovascular: UNREMARKABLE - Respiratory Respiratory: UNREMARKABLE - Gastrointestinal Gastrointestinal: Abdominal Pain - Genitourinary Genitourinary: UNREMARKABLE - Reproductive: Male Reproductive:Male: UNREMARKABLE - Musculoskeletal Musculoskeletal: Arthralgias, Myalgias - Integumentary Integumentary: UNREMARKABLE - Neurological Neurological: Other (SEIZURE) - Psychiatric Psychiatric: Anxiety - Endocrine Endocrine: UNREMARKABLE - Hematologic/Lymphatic Hematologic: UNREMARKABLE Mental Status Examination - Personal Presentation Personal Presentation: Looks older than stated age - Affect Affect: Constricted - Motor Activity Motor Activity: Calm - Reliability in Providing Information Reliability in Providing Information: Good - Speech Speech: Organized - Mood Mood: Anxious - Formal Thought Process Formal Thought Process: No Impairment - Obsessions/Compulsions Obsessions: None Compulsions: None - Cognitive Functions Orientation: Person, Place, Situation, Time Sensorium: Alert Attention/Concentration: Attentive Abstract Thinking: [place] Estimate of Intelligence: Average Judgement: Intact, as evidence by: Good judgement Memory: Recent intact, as evidence by: Ability to recall events of the day, Remote intact, as evidenced by: Abilit to recall sig. life events - Risk Risk: Seizure, Withdrawal DSM 5 DX - DSM 5 DSM 5 Diagnosis: ALCOHOL WITHDRAWAL ATIVAN NE CBT SUPPORTIVE PSYCHOTHERAPY ALCOHOL USE DISORDER: SEVERE NE CBT SUPPORTIVE PSYCHOTHERAPY OPIOID WITHDRAWAL: SUBUTEX NE CBT GROUP THERAPY SUPPORTIVE PSYCHOTHERAPY OPIOID USE DISORDER: MILD CBT NE PSYCHOEDUCATION - Recommended/Plan of Treatment Treatment Recommendations and Plan of Treatment: SEE ABOVE Projected ELOS: 5 DAYS Prognosis: FAIR [facility] CONTINUED TREATMENT Discharge Plan and Discharge Criteria: NO ACUTE WITHDRAWAL SXS - Smoking Cessation Smoking Cessation Initiated: No
--- NOTE | 2018-04-23 21:49 | PCM.PYCHPN ---
Psychiatric Progress Note - Psychiatric Progress Note Patient Chief Complaint: MY HANDS WON'T STOP SHAKING Problems Identified/Issues Discussed: PT SEEN AND EXAMINED DISCUSSED WITH TEAM D/W PT AFTERCARE OPTIONS Medical Problems: TREMORS Diagnostic Results: REVIEWED DSM 5 Symptoms Update: CHILLS SWEATS STOMACH CRAMPS Medication Change: Yes (SUBUTEX AND ATIVAN TAPER) Medical Record Reviewed: Yes Mental Status Examination - Cognitive Function Orientation: Person, Place, Situation, Time Memory: Intact Attention: WNL Concentration: WNL Association: WNL Fund of Knowledge: WNL - Mood Mood: Anxious - Affect Affect: Constricted - Speech Speech: Appropriate - Formal Thought Process Formal Thought Process: No Impairment - Suicidal Ideation Suicidal Ideation: No - Homicidal Ideation Homicidal Ideation: No Goal/Treatment Plan - Goal/Treatment Plan Need for Continued Stay: Severe depression anxiety, Discharge may exacerbated symptoms Progress Toward Problem(s) and Goals/Treatment Plan: ALCOHOL WITHDRAWAL ATIVAN ALCOHOL USE DISORDER CBT [place] PSYCHOTHERAPY OPIOID WITHDRAWAL SUBUTEX OPIOID USE DISORDER CBT [place] PSYCHOEDUCATION Estimated Date of D/C: 04/25/18 - Smoking Cessation Smoking Cessation Initiated: No
[2018-04-24] MEDS ORDERED: Buprenorphine Hydrochloride 2 mg SL ONE (08:46)
[2018-04-24] MEDS ORDERED: Influenza Vaccine 60 MCG/0.5 ML SYR (3 yr & up) IM ONE (10:00)
[2018-04-24] MEDS ORDERED: Pneumococcal 23-Valent Vaccine IM ONE (10:00)
--- NOTE | 2018-04-24 13:16 | PCM.PYCHPN ---
Psychiatric Progress Note - Psychiatric Progress Note Patient seen today, length of contact: 19 min Patient Chief Complaint: "I need rehab, can I leave?" Problems Identified/Issues Discussed: The pt is seen, chart reviewed, case discussed with staff. The pt is compliant with medications and reports no side-effects. Symptoms are improving but needs more time to stabilize. He is in fact right now, as before, going into DTs. More ativan given Plus prn haldol, other meds Labs ordered Consult ordered Support given, psycho-education provided. After care discussed - wants rehab but also wants to leave He cannot leave as he is disoriented, confused and at risk to harm self He is even hallucinating, saw his sister in the room Medication Change: Yes (SUBUTEX AND ATIVAN TAPER) Medical Record Reviewed: Yes Mental Status Examination - Cognitive Function Orientation: Person, Situation Memory: Impaired Attention: Poor Concentration: Poor Association: Loose Fund of Knowledge: WNL - Mood Mood: Anxious - Affect Affect: Constricted - Speech Speech: Slurred - Formal Thought Process Formal Thought Process: Loosening of associations - Suicidal Ideation Suicidal Ideation: No - Homicidal Ideation Homicidal Ideation: No Goal/Treatment Plan - Goal/Treatment Plan Need for Continued Stay: Severe depression anxiety, Discharge may exacerbated symptoms, Severe functional impairment Progress Toward Problem(s) and Goals/Treatment Plan: Continue medications Support and psychoeducation daily Attend groups and activities daily After care planning by counselors Get medical consult CMP, ammonia, MG ordered Extra Ativan po/im as needed Estimated Date of D/C: 04/27/18
--- NOTE | 2018-04-24 15:47 | CP.PCM.CON ---
<MarekbradyHeriberto gonzales - Last Filed: 04/24/18 19:37> History of Present Illness - History of Present Illness History of Present Illness: Heriberto Drummond PGY-1, Medicine consult note for Dr. Durán 47 y/o male with PMH of alcohol abuse with withdrawal and seizures in the past, poly substance abuse. Admitted on 04/21/18 for alcohol and heroin detox. Pt began having visual and auditory hallucinations last night (04/23). Pt is tremulous and feels anxious. He reports that he just wants a cigarrette to relax, but states that his mom (whom he believes to be in the room) does not let him. Pt states that he had a seizure 2 days ago, although nurses do not confirm this. Pt with bruising and bite juan luis on tongue. Pt is complaining of a slight headache. Denies visual changes, chest pain, sob, abdominal pain, n/v/d, numbness or tingling. Last drink A 12-point ROS was reviewed and is otherwise unremarkable. Pt required extra doses of ativan and haldol with benadryl last night in order to calm him during his agitated state with hallucinations. Pt's Ativan was increased to 2 mg PO, but he remained tremulous and agitated this morning. PMH: alcohol abuse with withdrawal and seizures in the past, poly substance abuse PSH: hernia repair (9-10 years ago) Meds: Advil OTC as needed Allx: NKDA Family Hx: denies Social Hx: (+) cigarettes, (+) 12 pack of 16 ounce beers per and 3 shots of vodka per day. He has been drinking alcohol since age 10. 7 bags of heroin per day. Pt changes his responses as far as quantity of use throughout the conversation. Review of Systems - Review of Systems All systems: reviewed and no additional remarkable complaints except (as per HPI) Past Patient History - Infectious Disease Hx of Infectious Diseases: None - Past Medical History & Family History Past Medical History?: No - Past Social History Smoking Status: Light Smoker < 10 Cigarettes Daily - CARDIAC Hx Hypertension: No - PULMONARY Hx Tuberculosis: No - NEUROLOGICAL Hx Seizures: Yes (alcohol induced) - HEENT Hx HEENT Problems: No - RENAL Hx Chronic Kidney Disease: No - ENDOCRINE/METABOLIC Hx Endocrine Disorders: No - HEMATOLOGICAL/ONCOLOGICAL Hx Human Immunodeficiency Virus (HIV): No - INTEGUMENTARY Hx Dermatological Problems: No - MUSCULOSKELETAL/RHEUMATOLOGICAL Hx Falls: Yes - GASTROINTESTINAL Hx Gastrointestinal Disorders: No - GENITOURINARY/GYNECOLOGICAL Hx Sexually Transmitted Disorders: No - PSYCHIATRIC Hx Substance Use: Yes - SURGICAL HISTORY Hx Surgeries: Yes Hx Herniorrhaphy: Yes - ANESTHESIA Hx Anesthesia: Yes Hx Anesthesia Reactions: No Hx Malignant Hyperthermia: No Meds Allergies/Adverse Reactions: Allergies Allergy/AdvReac Type Severity Reaction Status Date / Time No Known Allergies Allergy Verified 04/21/18 10:55 - Medications Medications: Current Medications Acetaminophen (Tylenol 325mg Tab) 650 mg PO Q6 PRN PRN Reason: Pain, moderate (4-7) Last Admin: 04/22/18 16:02 Dose: 650 mg Al Hydrox/Mg Hydrox/Simethicone (Maalox 30 Ml) 30 ml PO TID PRN PRN Reason: Indigestion / Heartburn Clonidine HCl (Catapres) 0.1 mg PO Q8 PRN PRN Reason: Opiate reversal Last Admin: 04/23/18 16:18 Dose: 0.1 mg Diphenhydramine HCl (Benadryl) 50 mg PO Q4 PRN PRN Reason: eps Last Admin: 04/23/18 21:02 Dose: 50 mg Haloperidol (Haldol) 5 mg PO Q4 PRN PRN Reason: Agitation Last Admin: 04/24/18 12:04 Dose: 5 mg Hydroxyzine HCl (Atarax) 25 mg PO Q8 PRN PRN Reason: Anxiety Last Admin: 04/23/18 16:18 Dose: 25 mg Sodium Chloride (Sodium Chloride 0.9%) 1,000 mls @ 100 mls/hr IV .Q10H ADAM Ibuprofen (Motrin Tab) 600 mg PO Q6 PRN PRN Reason: pain Levetiracetam (Keppra) 250 mg PO BID ADAM Last Admin: 04/24/18 10:50 Dose: 250 mg Loperamide HCl (Imodium) 4 mg PO Q8 PRN PRN Reason: Diarrhea Lorazepam (Ativan) 1 mg PO Q4H PRN PRN Reason: Symptoms of alcohol withdrawl Last Admin: 04/23/18 21:02 Dose: 1 mg Lorazepam (Ativan) 2 mg IVP Q3H ADAM Lorazepam (Ativan) 1 mg IVP Q2H PRN PRN Reason: Anxiety Nicotine (Nicoderm Cq) 1 patch TD DAILY [facility] Last Admin: 04/24/18 09:31 Dose: 1 patch Ondansetron HCl (Zofran Tab) 4 mg PO Q4 PRN PRN Reason: Nausea/Vomiting Trazodone HCl (Desyrel) 100 mg PO HS [facility] Last Admin: 04/23/18 21:02 Dose: 100 mg Physical Exam - Constitutional Appears: Non-toxic, Agitated - Head Exam Head Exam: NORMAL INSPECTION - Eye Exam Eye Exam: EOMI, Normal appearance - ENT Exam ENT Exam: Mucous Membranes Moist Additional comments: (+) bite juan luis on right lateral ventral tongue, with ecchymosis. no active bleeding - Neck Exam Neck exam: Positive for: Normal Inspection - Respiratory Exam Respiratory Exam: Clear to Auscultation Bilateral. absent: Rales, Rhonchi, Wheezes, Respiratory Distress - Cardiovascular Exam Cardiovascular Exam: Tachycardia, REGULAR RHYTHM, +S1, +S2 - GI/Abdominal Exam GI & Abdominal Exam: Normal Bowel Sounds, Soft. absent: Diminished Bowel Sounds, Distended, Firm, Guarding, Tenderness - Extremities Exam Extremities exam: Positive for: normal inspection, pedal pulses present. Negative for: calf tenderness, pedal edema, tenderness Additional comments: (+) tremulousness on outstretched hands, and when in bed - Psychiatric Exam Psychiatric exam: Agitated Additional comments: (+) visual and auditory hallucinations (mother) - Skin Skin Exam: Dry, Normal Color, Warm Results - Vital Signs Recent Vital Signs: Last Vital Signs Temp 97.6 F 04/24/18 13:08 Pulse 79 04/24/18 13:08 Resp 18 04/24/18 13:08 BP 121/85 04/24/18 13:08 Pulse Ox 98 04/24/18 13:08 - Labs Result Diagrams: 04/24/18 17:03 04/24/18 17:03 Assessment & Plan - Assessment and Plan (Free Text) Assessment: 47 y/o male with PMH of alcohol abuse with withdrawal and seizures in the past, polysubstance abuse. Admitted on 04/21/18 for alcohol and heroin detox. Pt began having visual and auditory hallucinations last night (04/23). Plan: Delirium Tremens Transfer to med/surg Pt's etoh level on admission was 40 Last drink 04/21 at 6 am as per psych note UDS positive for opiates and benzos on admission CIWA protocol Lorazepam 2 mg IVP Q3H ADAM Lorazepam 1 mg IVP Q2H PRN NS IVF at 100 mL/hr f/u CBC, CMP, PT/PTT/INR, Mg, Phos Seizure precautions, fall precautions Vital signs q4h Alcohol abuse disorder with dependance See above Ammonia is <9 on admission AST/ALT/ALP is 125/6/88 on admission Poly substance abuse disorder Detox as per psych Regular Diet Case was discussed and reviewed with attending physician, Dr. Durán <Mason Durán H - Last Filed: 04/25/18 07:38> Meds - Medications Medications: Current Medications Acetaminophen (Tylenol 325mg Tab) 650 mg PO Q6 PRN PRN Reason: Pain, moderate (4-7) Last Admin: 04/22/18 16:02 Dose: 650 mg Al Hydrox/Mg Hydrox/Simethicone (Maalox 30 Ml) 30 ml PO TID PRN PRN Reason: Indigestion / Heartburn Clonidine HCl (Catapres) 0.1 mg PO Q8 PRN PRN Reason: Opiate reversal Last Admin: 04/24/18 16:40 Dose: 0.1 mg Diphenhydramine HCl (Benadryl) 50 mg PO Q4 PRN PRN Reason: eps Last Admin: 04/24/18 18:14 Dose: 50 mg Haloperidol (Haldol) 5 mg PO Q4 PRN PRN Reason: Agitation Last Admin: 04/24/18 18:14 Dose: 5 mg Hydroxyzine HCl (Atarax) 25 mg PO Q8 PRN PRN Reason: Anxiety Last Admin: 04/24/18 16:40 Dose: 25 mg Sodium Chloride (Sodium Chloride 0.9%) 1,000 mls @ 100 mls/hr IV .Q10H ADAM Last Admin: 04/25/18 01:45 Dose: Not Given Ibuprofen (Motrin Tab) 600 mg PO Q6 PRN PRN Reason: pain Levetiracetam (Keppra) 250 mg PO BID ADAM Last Admin: 04/24/18 18:14 Dose: 250 mg Loperamide HCl (Imodium) 4 mg PO Q8 PRN PRN Reason: Diarrhea Lorazepam (Ativan) 2 mg IVP Q3H ADAM Last Admin: 04/25/18 05:31 Dose: 2 mg Lorazepam (Ativan) 1 mg IVP Q2H PRN PRN Reason: Anxiety Last Admin: 04/24/18 22:43 Dose: 1 mg Nicotine (Nicoderm Cq) 1 patch TD DAILY [facility] Last Admin: 04/24/18 09:31 Dose: 1 patch Ondansetron HCl (Zofran Tab) 4 mg PO Q4 PRN PRN Reason: Nausea/Vomiting Trazodone HCl (Desyrel) 100 mg PO HS [facility] Last Admin: 04/24/18 22:36 Dose: 100 mg Results - Vital Signs Recent Vital Signs: Last Vital Signs Temp 97.8 F 04/25/18 05:30 Pulse 69 04/25/18 05:30 Resp 20 04/25/18 05:30 BP 100/62 04/25/18 05:30 Pulse Ox 99 04/25/18 05:30 - Labs Result Diagrams: 04/24/18 17:03 04/24/18 17:03 Labs: Laboratory Results - last 24 hr 04/24/18 04/24/18 04/24/18 17:03 17:03 17:03 WBC 7.0 RBC 3.56 L Hgb 12.8 Hct 37.9 MCV 106.6 H MCH 36.0 H MCHC 33.7 RDW 13.3 Plt Count 246 MPV 7.1 L Neut % (Auto) 70.2 Lymph % (Auto) 15.8 L [place] % (Auto) 11.3 H Eos % (Auto) 1.9 Baso % (Auto) 0.8 Neut # (Auto) 4.9 Lymph # (Auto) 1.1 [place] # (Auto) 0.8 Eos # (Auto) 0.1 Baso # (Auto) 0.1 PT INR APTT Sodium 143 Potassium 3.9 Chloride 100 Carbon Dioxide 30 Anion Gap 18 BUN 10 Creatinine 0.7 L Est GFR ( Amer) > 60 Est GFR (Non-Af Amer) > 60 Random Glucose 135 H Calcium 9.9 Phosphorus 4.7 H Magnesium 1.8 Total Bilirubin 0.8 AST 155 H D ALT 120 H D Alkaline Phosphatase 71 Ammonia < 9 L Total Protein 8.3 Albumin 4.8 Globulin 3.4 Albumin/Globulin Ratio 1.4 04/24/18 17:03 WBC RBC Hgb Hct MCV MCH MCHC RDW Plt Count MPV Neut % (Auto) Lymph % (Auto) [place] % (Auto) Eos % (Auto) Baso % (Auto) Neut # (Auto) Lymph # (Auto) [place] # (Auto) Eos # (Auto) Baso # (Auto) PT 11.2 INR 1.0 APTT 31 Sodium Potassium Chloride Carbon Dioxide Anion Gap BUN Creatinine Est GFR ( Amer) Est GFR (Non-Af Amer) Random Glucose Calcium Phosphorus Magnesium Total Bilirubin AST ALT Alkaline Phosphatase Ammonia Total Protein Albumin Globulin Albumin/Globulin Ratio Attending/Attestation - Attestation I have personally seen and examined this patient.: Yes I have fully participated in the care of the patient.: Yes I have reviewed all pertinent clinical information: Yes Notes (Text): 04/25/18 07:36 Medical Hospitalist: Reviewed the above note by the resident The patient was seen over in 7D and he was actively hallucinating and having tremors. He is a heavy drinker and so will move over to medical floors and use ativan on a scheduled basis and follow his progress and hopefully be able to make a decrease in the IV ativan tommorow. Will start IVF as well. He will need new lab work as well. Mason Durán
[2018-04-24 17:07] LABS: BASO # 0.1 K/uL (0.0-0.2); BASO % 0.8 % (0.0-2.0); EOS # 0.1 K/uL (0.0-0.7); EOS % 1.9 % (0.0-4.0); HEMOGLOBIN 12.8 g/dL (12.0-18.0); LYMPH # 1.1 K/uL (1.0-4.3); LYMPH % 15.8 % (20.0-40.0); MEAN CELL VOLUME 106.6 fL (80.0-94.0); MEAN CORPUSCULAR HGB CONC 33.7 g/dL (33.0-37.0); MEAN PLATELET VOLUME 7.1 fL (7.2-11.7); MONO # 0.8 K/uL (0.0-0.8); MONO % 11.3 % (0.0-10.0); NEUT # 4.9 K/uL (1.8-7.0); NEUT % 70.2 % (50.0-75.0); NRBC % 0.1 % (0.0-2.0); RBC 3.56 Mil/uL (4.40-5.90); RED CELL DISTRIBUTION WIDTH 13.3 % (11.5-14.5)
[2018-04-24 17:17] LABS: PROTHROMBIN TIME 11.2 SECONDS (9.7-12.2)
[2018-04-24 17:31] LABS: ALB/GLOB RATIO 1.4 (1.0-2.1); ALBUMIN 4.8 g/dL (3.5-5.0); ALT/SGPT 120 U/L (21-72); AST/SGOT 155 U/L (17-59); BLOOD UREA NITROGEN 10 mg/dL (9-20); CALCIUM 9.9 mg/dl (8.6-10.4); GFR NON-AFRICAN AMERICAN > 60
[2018-04-24] MEDS: Sodium Chloride 0.9% 1,000 ML IV SCH (20:36)
[2018-04-25 00:22] VITALS: RESP 20
[2018-04-25] MEDS: Sodium Chloride 0.9% 1,000 ML IV SCH ×4 (01:45→21:25)
--- NOTE | 2018-04-25 11:25 | CP.PCM.PN ---
<Heriberto Drummond - Last Filed: 04/25/18 17:03> Subjective - Date & Time of Evaluation Date of Evaluation: 04/25/18 Time of Evaluation: 11:25 - Subjective Subjective: Heriberto Drummond PGY-1, Medicine progress note Pt seen and examined at bedside. Pt required ativan prn dosage overnight due to agitation. Pt is resting comfortably, but is asking for pain medications. He reports that he has pain all over his body, chills, nausea and shakiness. Pt denies chest pain, sob. No seizure activity overnight. A full 12-point ROS is unobtainable due to pt being uncooperative. Objective - Vital Signs/Intake and Output Vital Signs (last 24 hours): Temp Pulse Resp BP Pulse Ox 98.1 F 100 H 20 119/85 100 04/25/18 07:00 04/25/18 07:00 04/25/18 07:00 04/25/18 07:00 04/25/18 07:00 Intake and Output: 04/25/18 04/25/18 06:59 18:59 Intake Total 800 Balance 800 - Medications Medications: Current Medications Acetaminophen (Tylenol 325mg Tab) 650 mg PO Q6 PRN PRN Reason: Pain, moderate (4-7) Last Admin: 04/22/18 16:02 Dose: 650 mg Al Hydrox/Mg Hydrox/Simethicone (Maalox 30 Ml) 30 ml PO TID PRN PRN Reason: Indigestion / Heartburn Clonidine HCl (Catapres) 0.1 mg PO Q8 PRN PRN Reason: Opiate reversal Last Admin: 04/24/18 16:40 Dose: 0.1 mg Diphenhydramine HCl (Benadryl) 50 mg PO Q4 PRN PRN Reason: eps Last Admin: 04/24/18 18:14 Dose: 50 mg Haloperidol (Haldol) 5 mg PO Q4 PRN PRN Reason: Agitation Last Admin: 04/24/18 18:14 Dose: 5 mg Hydroxyzine HCl (Atarax) 25 mg PO Q8 PRN PRN Reason: Anxiety Last Admin: 04/24/18 16:40 Dose: 25 mg Sodium Chloride (Sodium Chloride 0.9%) 1,000 mls @ 100 mls/hr IV .Q10H [facility] Last Admin: 04/25/18 09:21 Dose: 100 mls/hr Ibuprofen (Motrin Tab) 600 mg PO Q6 PRN PRN Reason: pain Levetiracetam (Keppra) 250 mg PO BID [facility] Last Admin: 04/25/18 09:57 Dose: 250 mg Loperamide HCl (Imodium) 4 mg PO Q8 PRN PRN Reason: Diarrhea Lorazepam (Ativan) 2 mg IVP Q3H [facility] Last Admin: 04/25/18 10:13 Dose: 2 mg Lorazepam (Ativan) 1 mg IVP Q2H PRN PRN Reason: Anxiety Last Admin: 04/24/18 22:43 Dose: 1 mg Nicotine (Nicoderm Cq) 1 patch TD DAILY [facility] Last Admin: 04/25/18 09:57 Dose: 1 patch Ondansetron HCl (Zofran Tab) 4 mg PO Q4 PRN PRN Reason: Nausea/Vomiting Trazodone HCl (Desyrel) 100 mg PO HS [facility] Last Admin: 04/24/18 22:36 Dose: 100 mg - Labs Labs: 04/24/18 17:03 04/24/18 17:03 PT 11.2 SECONDS (9.7-12.2) 04/24/18 17:03 INR 1.0 04/24/18 17:03 APTT 31 SECONDS (21-34) 04/24/18 17:03 - Constitutional Appears: Non-toxic, No Acute Distress - Head Exam Head Exam: NORMAL INSPECTION - Eye Exam Eye Exam: EOMI Additional comments: (+) bite juan luis on right lateral ventral tongue, with ecchymosis. no active b leeding - ENT Exam ENT Exam: Mucous Membranes Moist - Cardiovascular Exam Cardiovascular Exam: REGULAR RHYTHM, +S1, +S2 - GI/Abdominal Exam GI & Abdominal Exam: Soft, Tenderness (mild diffuse tenderness), Normal Bowel Sounds - Extremities Exam Extremities Exam: Normal Inspection Additional comments: (+) tremors on outstretched hands - Back Exam Back Exam: NORMAL INSPECTION - Neurological Exam Neurological Exam: Awake - Psychiatric Exam Psychiatric exam: Agitated, Normal Mood. absent: Homicidal Ideation - Skin Skin Exam: Normal Color, Warm Assessment and Plan - Assessment and Plan (Free Text) Assessment: 47 y/o male with PMH of alcohol abuse with withdrawal and seizures in the past, polysubstance abuse. Admitted on 04/21/18 for alcohol and heroin detox. Pt began having visual and auditory hallucinations last night (04/23). Plan: Delirium Tremens Transfer to med/surg Pt's etoh level on admission was 40 Last drink 04/21 at 6 am as per psych note UDS positive for opiates and benzos on admission CIWA protocol Lorazepam 1 mg IVP Q3H ADAM, down from Lorazepam 2 mg IVP Q3H [facility] Lorazepam 1 mg IVP Q2H PRN NS IVF at 100 mL/hr Seizure precautions, fall precautions Vital signs q4h pt is normotensive but tachycardic in the low 100s at times Alcohol abuse disorder with dependance See above Ammonia is <9 on admission INR is 1.0 AST/ALT/ALP is 125/6/88 on admission -uptrending, currently 281/195/73, tbili is normal at 1.0 -f/u hepatitis panel Poly substance abuse disorder Detox as per psych Opiate withdrawal Detox as per psych Regular Diet Case was discussed and reviewed with attending physician, Dr. Durán <Mason Durán - Last Filed: 04/25/18 17:19> Objective - Vital Signs/Intake and Output Vital Signs (last 24 hours): Temp Pulse Resp BP Pulse Ox 98 F 68 20 115/74 99 04/25/18 15:56 04/25/18 15:56 04/25/18 15:56 04/25/18 15:56 04/25/18 15:56 Intake and Output: 04/25/18 04/25/18 06:59 18:59 Intake Total 800 800 Balance 800 800 - Medications Medications: Current Medications Acetaminophen (Tylenol 325mg Tab) 650 mg PO Q6 PRN PRN Reason: Pain, moderate (4-7) Last Admin: 04/22/18 16:02 Dose: 650 mg Al Hydrox/Mg Hydrox/Simethicone (Maalox 30 Ml) 30 ml PO TID PRN PRN Reason: Indigestion / Heartburn Clonidine HCl (Catapres) 0.1 mg PO Q8 PRN PRN Reason: Opiate reversal Last Admin: 04/24/18 16:40 Dose: 0.1 mg Diphenhydramine HCl (Benadryl) 50 mg PO Q4 PRN PRN Reason: eps Last Admin: 04/24/18 18:14 Dose: 50 mg Haloperidol (Haldol) 5 mg PO Q4 PRN PRN Reason: Agitation Last Admin: 04/24/18 18:14 Dose: 5 mg Hydroxyzine HCl (Atarax) 25 mg PO Q8 PRN PRN Reason: Anxiety Last Admin: 04/25/18 11:55 Dose: 25 mg Sodium Chloride (Sodium Chloride 0.9%) 1,000 mls @ 100 mls/hr IV .Q10H [facility] Last Admin: 04/25/18 11:59 Dose: Not Given Ibuprofen (Motrin Tab) 600 mg PO Q6 PRN PRN Reason: pain Levetiracetam (Keppra) 250 mg PO BID [facility] Last Admin: 04/25/18 09:57 Dose: 250 mg Loperamide HCl (Imodium) 4 mg PO Q8 PRN PRN Reason: Diarrhea Lorazepam (Ativan) 1 mg IVP Q2H PRN PRN Reason: Anxiety Last Admin: 04/24/18 22:43 Dose: 1 mg Lorazepam (Ativan) 1 mg IVP Q3H [facility] Last Admin: 04/25/18 14:44 Dose: 1 mg Nicotine (Nicoderm Cq) 1 patch TD DAILY [facility] Last Admin: 04/25/18 09:57 Dose: 1 patch Ondansetron HCl (Zofran Tab) 4 mg PO Q4 PRN PRN Reason: Nausea/Vomiting Trazodone HCl (Desyrel) 100 mg PO HS [facility] Last Admin: 04/24/18 22:36 Dose: 100 mg - Labs Labs: 04/25/18 11:20 04/25/18 11:20 PT 11.2 SECONDS (9.7-12.2) 04/24/18 17:03 INR 1.0 04/24/18 17:03 APTT 31 SECONDS (21-34) 04/24/18 17:03 Attending/Attestation - Attestation I have personally seen and examined this patient.: Yes I have fully participated in the care of the patient.: Yes I have reviewed all pertinent clinical information, including history, physical exam and plan: Yes Notes (Text): 04/25/18 17:16 Medical attending: Patient was seen and examined by me. Agree with the above n ote by the resident The patient was more somulent this morning - however he was answering all questi ons and talking to us asking for narcotics for pain. When I asked him who writes for these medications he tells me he gets them off the street. His tremors are much less than yesterday. Will decrease the ativan to 1 mg IV Q4hrs scedhuled now and continue to monitor patient. If he continues to do well perhapsh he can go back to psychiatry floor tommorow. Mason Durán
[2018-04-25 11:38] LABS: BASO # 0.1 K/uL (0.0-0.2); BASO % 0.7 % (0.0-2.0); EOS # 0.2 K/uL (0.0-0.7); EOS % 2.3 % (0.0-4.0); HEMOGLOBIN 13.2 g/dL (12.0-18.0); LYMPH # 0.6 K/uL (1.0-4.3); LYMPH % 6.6 % (20.0-40.0); MEAN CELL VOLUME 106.2 fL (80.0-94.0); MEAN CORPUSCULAR HEMOGLOBIN 36.7 pg (27.0-31.0); MEAN CORPUSCULAR HGB CONC 34.5 g/dL (33.0-37.0); MEAN PLATELET VOLUME 7.4 fL (7.2-11.7); MONO # 0.8 K/uL (0.0-0.8); MONO % 9.1 % (0.0-10.0); NEUT # 6.9 K/uL (1.8-7.0); NEUT % 81.3 % (50.0-75.0); PLATELET COUNT 231 K/uL (130-400); RBC 3.61 Mil/uL (4.40-5.90); RED CELL DISTRIBUTION WIDTH 13.2 % (11.5-14.5); WHITE BLOOD COUNT 8.5 K/uL (4.8-10.8)
[2018-04-25 11:50] LABS: ALB/GLOB RATIO 1.2 (1.0-2.1); ALBUMIN 3.9 g/dL (3.5-5.0); ALT/SGPT 195 U/L (21-72); AST/SGOT 281 U/L (17-59); BLOOD UREA NITROGEN 9 mg/dL (9-20); CALCIUM 9.6 mg/dl (8.6-10.4); GFR NON-AFRICAN AMERICAN > 60
[2018-04-25 12:30] LABS: EOSINOPHIL 2 % (0-4); LYMPHOCYTE 9 % (20-40); MONOCYTE 3 % (0-10); NEUTROPHIL 86 % (50-75); PLATELET ESTIMATE NORMAL (NORMAL); TOTAL CELLS COUNTED 100
--- NOTE | 2018-04-25 14:33 | PCM.PYCHPN ---
Psychiatric Progress Note - Psychiatric Progress Note Patient seen today, length of contact: 19 min Patient Chief Complaint: "I'm fine" Problems Identified/Issues Discussed: The pt is seen, chart reviewed, case discussed with staff. Support and psychoeducation given No new symptoms reported, improving slowly and needs more time No SEs from medications Still withdrawing but better than before He is no longer as confused Medication Change: Yes (SUBUTEX AND ATIVAN TAPER) Medical Record Reviewed: Yes Mental Status Examination - Cognitive Function Orientation: Person, Place, Situation, Time Memory: Impaired Attention: Poor Concentration: Poor Association: Loose Fund of Knowledge: WNL - Mood Mood: Anxious - Affect Affect: Constricted - Speech Speech: Slurred - Formal Thought Process Formal Thought Process: Loosening of associations - Suicidal Ideation Suicidal Ideation: No - Homicidal Ideation Homicidal Ideation: No Goal/Treatment Plan - Goal/Treatment Plan Need for Continued Stay: Discharge may exacerbated symptoms, Severe functional impairment, Other (Medical) Progress Toward Problem(s) and Goals/Treatment Plan: Continue medications Support and psychoeducation daily Attend groups and activities daily After care planning by counselors Get medical consult CMP, ammonia, MG ordered Extra Ativan po/im as needed
[2018-04-25 15:15] LABS: HEPATITIS B SURFACE AG Negative (NEGATIVE)
[2018-04-25 15:21] LABS: HEPATITIS A IGM NEGATIVE (NEGATIVE); HEPATITIS B CORE AB NEGATIVE (NEGATIVE)
[2018-04-25 15:32] LABS: HEPATITIS C ANTIBODY NEGATIVE (NEGATIVE)
[2018-04-26] MEDS: Sodium Chloride 0.9% 1,000 ML IV SCH ×3 (05:52→17:25)
--- NOTE | 2018-04-26 09:49 | CP.PCM.PN ---
<Heriberto Drummond - Last Filed: 04/26/18 16:40> Subjective - Date & Time of Evaluation Date of Evaluation: 04/26/18 Time of Evaluation: 09:49 - Subjective Subjective: Heriberto Drummond PGY-1, Medicine progress note Pt seen and examined at bedside. Pt is resting comfortably, but reports that he feel anxious and shaky. He is asking for pain medication, to help him with his pain that is "all over" his body, including abdominal pain and mild headache. Pt is asking for a soda.Pt denies fever, chest pain, sob, visual changes, hemat ochezia, melena. No seizure activity overnight, and pt denies any bowel or bladder incontinence. Pt reports that he is eating, "but not that much." Objective - Vital Signs/Intake and Output Vital Signs (last 24 hours): Temp Pulse Resp BP Pulse Ox 97.3 F L 91 H 20 110/75 100 04/26/18 08:40 04/26/18 08:40 04/26/18 08:40 04/26/18 08:40 04/26/18 08:40 Intake and Output: 04/26/18 04/26/18 06:59 18:59 Intake Total 2120 Output Total 500 Balance 1620 - Medications Medications: Current Medications Acetaminophen (Tylenol 325mg Tab) 650 mg PO Q6 PRN PRN Reason: Pain, moderate (4-7) Last Admin: 04/22/18 16:02 Dose: 650 mg Al Hydrox/Mg Hydrox/Simethicone (Maalox 30 Ml) 30 ml PO TID PRN PRN Reason: Indigestion / Heartburn Clonidine HCl (Catapres) 0.1 mg PO Q8 PRN PRN Reason: Opiate reversal Last Admin: 04/24/18 16:40 Dose: 0.1 mg Diphenhydramine HCl (Benadryl) 50 mg PO Q4 PRN PRN Reason: eps Last Admin: 04/24/18 18:14 Dose: 50 mg Haloperidol (Haldol) 5 mg PO Q4 PRN PRN Reason: Agitation Last Admin: 04/24/18 18:14 Dose: 5 mg Hydroxyzine HCl (Atarax) 25 mg PO Q8 PRN PRN Reason: Anxiety Last Admin: 04/26/18 04:40 Dose: 25 mg Sodium Chloride (Sodium Chloride 0.9%) 1,000 mls @ 100 mls/hr IV .Q10H [facility] Last Admin: 04/26/18 07:58 Dose: Not Given Ibuprofen (Motrin Tab) 600 mg PO Q6 PRN PRN Reason: pain Levetiracetam (Keppra) 250 mg PO BID [facility] Last Admin: 04/25/18 17:36 Dose: 250 mg Loperamide HCl (Imodium) 4 mg PO Q8 PRN PRN Reason: Diarrhea Lorazepam (Ativan) 1 mg IVP Q2H PRN PRN Reason: Anxiety Last Admin: 04/24/18 22:43 Dose: 1 mg Lorazepam (Ativan) 1 mg IVP Q3H [facility] Last Admin: 04/26/18 08:02 Dose: 1 mg Nicotine (Nicoderm Cq) 1 patch TD DAILY [facility] Last Admin: 04/25/18 09:57 Dose: 1 patch Ondansetron HCl (Zofran Tab) 4 mg PO Q4 PRN PRN Reason: Nausea/Vomiting Trazodone HCl (Desyrel) 100 mg PO HS [facility] Last Admin: 04/25/18 21:00 Dose: 100 mg - Labs Labs: 04/25/18 11:20 04/25/18 11:20 PT 11.2 SECONDS (9.7-12.2) 04/24/18 17:03 INR 1.0 04/24/18 17:03 APTT 31 SECONDS (21-34) 04/24/18 17:03 - Constitutional Appears: Non-toxic, Agitated - Head Exam Head Exam: NORMAL INSPECTION - Eye Exam Eye Exam: EOMI, Normal appearance - ENT Exam ENT Exam: Mucous Membranes Moist Additional comments: (+) bite juan luis on right lateral ventral tongue, with ecchymosis. no active bleeding - Respiratory Exam Respiratory Exam: Clear to Ausculation Bilateral. absent: Decreased Breath Sounds, Rales, Rhonchi, Wheezes - Cardiovascular Exam Cardiovascular Exam: Tachycardia, REGULAR RHYTHM, +S1, +S2 - GI/Abdominal Exam GI & Abdominal Exam: Soft, Tenderness (mild diffuse tenderness), Normal Bowel Sounds. absent: Distended, Firm, Guarding, Rigid - Extremities Exam Extremities Exam: Normal Capillary Refill, Normal Inspection. absent: Pedal Edema Additional comments: (+) tremors on outstretched hands - Back Exam Back Exam: NORMAL INSPECTION. absent: CVA tenderness (L) - Neurological Exam Neurological Exam: Alert, Awake - Psychiatric Exam Psychiatric exam: Agitated - Skin Skin Exam: Dry, Normal Color, Warm Assessment and Plan - Assessment and Plan (Free Text) Assessment: 47 y/o male with PMH of alcohol abuse with withdrawal and seizures in the past, polysubstance abuse. Admitted on 04/21/18 for alcohol and heroin detox. Pt began having visual and auditory hallucinations last night (04/23). Plan: Delirium Tremens Transfer to med/surg Pt's etoh level on admission was 40 Last drink 04/21 at 6 am as per psych note UDS positive for opiates and benzos on admission CIWA protocol Lorazepam 1 mg IVP Q3H [facility], down from Lorazepam 2 mg IVP Q3H [facility] Lorazepam 1 mg IVP Q2H PRN NS IVF at 100 mL/hr Seizure precautions, fall precautions Alcohol abuse disorder with dependance Ammonia is <9 on admission INR is 1.0 Transaminitis, likely due to alcohol abuse, withdrawal AST/ALT/ALP is 125/61/88 on admission -downtrending -hepatitis panel is negative Poly substance abuse disorder Detox as per psych Opiate withdrawal -Toradol 30 mg IVP Q6H PRN pain Detox as per psych Regular Diet Case was discussed and reviewed with attending physician, Dr. Durán <Mason Durán - Last Filed: 04/26/18 17:07> Objective - Vital Signs/Intake and Output Vital Signs (last 24 hours): Temp Pulse Resp BP Pulse Ox 98.3 F 70 20 154/86 H 100 04/26/18 15:00 04/26/18 15:00 04/26/18 15:00 04/26/18 15:00 04/26/18 15:00 Intake and Output: 04/26/18 04/26/18 06:59 18:59 Intake Total 2120 1250 Output Total 500 Balance 1620 1250 - Medications Medications: Current Medications Acetaminophen (Tylenol 325mg Tab) 650 mg PO Q6 PRN PRN Reason: Pain, moderate (4-7) Last Admin: 04/22/18 16:02 Dose: 650 mg Al Hydrox/Mg Hydrox/Simethicone (Maalox 30 Ml) 30 ml PO TID PRN PRN Reason: Indigestion / Heartburn Clonidine HCl (Catapres) 0.1 mg PO Q8 PRN PRN Reason: Opiate reversal Last Admin: 04/24/18 16:40 Dose: 0.1 mg Diphenhydramine HCl (Benadryl) 50 mg PO Q4 PRN PRN Reason: eps Last Admin: 04/24/18 18:14 Dose: 50 mg Haloperidol (Haldol) 5 mg PO Q4 PRN PRN Reason: Agitation Last Admin: 04/24/18 18:14 Dose: 5 mg Hydroxyzine HCl (Atarax) 25 mg PO Q8 PRN PRN Reason: Anxiety Last Admin: 04/26/18 04:40 Dose: 25 mg Sodium Chloride (Sodium Chloride 0.9%) 1,000 mls @ 100 mls/hr IV .Q10H [facility] Last Admin: 04/26/18 07:58 Dose: Not Given Ibuprofen (Motrin Tab) 600 mg PO Q6 PRN PRN Reason: pain Last Admin: 04/26/18 13:05 Dose: 600 mg Ketorolac Tromethamine (Toradol) 30 mg IVP Q6 PRN PRN Reason: Pain, moderate (4-7) Levetiracetam (Keppra) 250 mg PO BID [facility] Last Admin: 04/26/18 16:59 Dose: 250 mg Loperamide HCl (Imodium) 4 mg PO Q8 PRN PRN Reason: Diarrhea Lorazepam (Ativan) 1 mg IVP Q2H PRN PRN Reason: CIWA>15 Lorazepam (Ativan) 1 mg PO Q6H [facility]; Taper Stop: 04/29/18 13:59 Last Admin: 04/26/18 13:56 Dose: 1 mg Nicotine (Nicoderm Cq) 1 patch TD DAILY [facility] Last Admin: 04/26/18 11:01 Dose: 1 patch Ondansetron HCl (Zofran Tab) 4 mg PO Q4 PRN PRN Reason: Nausea/Vomiting Trazodone HCl (Desyrel) 100 mg PO HS [facility] Last Admin: 04/25/18 21:00 Dose: 100 mg - Labs Labs: 04/26/18 11:26 04/26/18 11:26 PT 11.2 SECONDS (9.7-12.2) 04/24/18 17:03 INR 1.0 04/24/18 17:03 APTT 31 SECONDS (21-34) 04/24/18 17:03 Attending/Attestation - Attestation I have personally seen and examined this patient.: Yes I have fully participated in the care of the patient.: Yes I have reviewed all pertinent clinical information, including history, physical exam and plan: Yes Notes (Text): 04/26/18 17:03 Medical attending: Patient was seen and examined by me. Agree with the above note by the resident When we saw him this morning he was still having fine tremors on exam - and he was complaining saying he was having pain all over the place. I do not want to give him narcotic pain medication given the patient's history. Will try toradol IV for now Tommorow will stop with the IV ativan and slip box changer to WINNIE Durán
[2018-04-26 11:36] LABS: BASO # 0.1 K/uL (0.0-0.2); EOS # 0.2 K/uL (0.0-0.7); HEMOGLOBIN 12.8 g/dL (12.0-18.0); LYMPH # 0.9 K/uL (1.0-4.3); LYMPH % 14.4 % (20.0-40.0); MEAN CELL VOLUME 106.5 fL (80.0-94.0); MEAN CORPUSCULAR HEMOGLOBIN 35.9 pg (27.0-31.0); MEAN CORPUSCULAR HGB CONC 33.8 g/dL (33.0-37.0); MEAN PLATELET VOLUME 7.3 fL (7.2-11.7); MONO # 0.7 K/uL (0.0-0.8); MONO % 12.4 % (0.0-10.0); NEUT # 4.1 K/uL (1.8-7.0); NEUT % 69.2 % (50.0-75.0); RBC 3.57 Mil/uL (4.40-5.90); RED CELL DISTRIBUTION WIDTH 13.3 % (11.5-14.5)
[2018-04-26 12:18] LABS: ALB/GLOB RATIO 1.2 (1.0-2.1); ALBUMIN 3.6 g/dL (3.5-5.0); ALT/SGPT 160 U/L (21-72); AST/SGOT 142 U/L (17-59); BLOOD UREA NITROGEN 11 mg/dL (9-20); CALCIUM 9.1 mg/dl (8.6-10.4); GFR NON-AFRICAN AMERICAN > 60
--- NOTE | 2018-04-26 13:20 | CP.PCM.PCO ---
Physician Communication Note - Physician Communication Note Physician Communication Note: Pt does NOT need q3h ativan anymore. Put on a PO taper
[2018-04-27] MEDS: Sodium Chloride 0.9% 1,000 ML IV SCH ×3 (03:46→18:43)
--- NOTE | 2018-04-27 07:25 | CP.PCM.PN ---
<Jefferson Wells - Last Filed: 04/27/18 15:06> Subjective - Date & Time of Evaluation Date of Evaluation: 04/27/18 Time of Evaluation: 07:20 - Subjective Subjective: PGY 1 Medicine Progress Note for Dr. Durán. Patient seen and examined at bedside. No overnight events reported. Patient lying in bed comfortably, sleeping. Upon questioning patient states he is having anxiety and would like to have some medical therapy. Additionally patient further complaints of continued back pain that has been occurring for several months. Patient denies palpitations, nausea, vomiting, diarrhea, constipation, abdominal pain. Objective - Vital Signs/Intake and Output Vital Signs (last 24 hours): Temp Pulse Resp BP Pulse Ox 97.7 F 61 20 147/85 99 04/27/18 00:14 04/27/18 00:14 04/27/18 00:14 04/27/18 00:14 04/27/18 00:14 Intake and Output: 04/27/18 04/27/18 06:59 18:59 Intake Total 2190 Balance 2190 - Medications Medications: Current Medications Acetaminophen (Tylenol 325mg Tab) 650 mg PO Q6 PRN PRN Reason: Pain, moderate (4-7) Last Admin: 04/22/18 16:02 Dose: 650 mg Al Hydrox/Mg Hydrox/Simethicone (Maalox 30 Ml) 30 ml PO TID PRN PRN Reason: Indigestion / Heartburn Clonidine HCl (Catapres) 0.1 mg PO Q8 PRN PRN Reason: Opiate reversal Last Admin: 04/24/18 16:40 Dose: 0.1 mg Diphenhydramine HCl (Benadryl) 50 mg PO Q4 PRN PRN Reason: eps Last Admin: 04/27/18 06:35 Dose: 50 mg Haloperidol (Haldol) 5 mg PO Q4 PRN PRN Reason: Agitation Last Admin: 04/27/18 06:35 Dose: 5 mg Hydroxyzine HCl (Atarax) 25 mg PO Q8 PRN PRN Reason: Anxiety Last Admin: 04/26/18 04:40 Dose: 25 mg Sodium Chloride (Sodium Chloride 0.9%) 1,000 mls @ 100 mls/hr IV .Q10H [facility] Last Admin: 04/27/18 03:46 Dose: 100 mls/hr Ibuprofen (Motrin Tab) 600 mg PO Q6 PRN PRN Reason: pain Last Admin: 04/26/18 20:56 Dose: 600 mg Ketorolac Tromethamine (Toradol) 30 mg IVP Q6 PRN PRN Reason: Pain, moderate (4-7) Levetiracetam (Keppra) 250 mg PO BID [facility] Last Admin: 04/26/18 16:59 Dose: 250 mg Loperamide HCl (Imodium) 4 mg PO Q8 PRN PRN Reason: Diarrhea Lorazepam (Ativan) 1 mg IVP Q2H PRN PRN Reason: CIWA>15 Lorazepam (Ativan) 1 mg PO Q6H [facility]; Taper Stop: 04/29/18 13:59 Last Admin: 04/27/18 02:56 Dose: 1 mg Nicotine (Nicoderm Cq) 1 patch TD DAILY [facility] Last Admin: 04/26/18 11:01 Dose: 1 patch Ondansetron HCl (Zofran Tab) 4 mg PO Q4 PRN PRN Reason: Nausea/Vomiting Trazodone HCl (Desyrel) 100 mg PO HS [facility] Last Admin: 04/26/18 21:37 Dose: 100 mg - Labs Labs: 04/26/18 11:26 04/26/18 11:26 PT 11.2 SECONDS (9.7-12.2) 04/24/18 17:03 INR 1.0 04/24/18 17:03 APTT 31 SECONDS (21-34) 04/24/18 17:03 - Constitutional Appears: Non-toxic, No Acute Distress - Head Exam Head Exam: ATRAUMATIC, NORMAL INSPECTION, NORMOCEPHALIC - Eye Exam Eye Exam: EOMI, Normal appearance - ENT Exam ENT Exam: Mucous Membranes Moist Additional comments: (+) bite juan luis on right lateral ventral tongue, with ecchymosis. no active bleeding - Respiratory Exam Respiratory Exam: Clear to Ausculation Bilateral, NORMAL BREATHING PATTERN. absent: Rales, Rhonchi, Wheezes - Cardiovascular Exam Cardiovascular Exam: +S1, +S2. absent: Irregular Rhythm, Murmur - GI/Abdominal Exam GI & Abdominal Exam: Soft, Normal Bowel Sounds. absent: Guarding, Rigid, Tenderness - Extremities Exam Extremities Exam: Full ROM, Normal Inspection. absent: Calf Tenderness, Pedal Edema Additional comments: slight tremors on outstretched hands, reduced from previous days - Neurological Exam Neurological Exam: Alert, Awake, Oriented x3 Additional comments: normal finger to nose - Psychiatric Exam Psychiatric exam: Normal Affect, Normal Mood - Skin Skin Exam: Dry, Intact, Normal Color, Warm Assessment and Plan - Assessment and Plan (Free Text) Assessment: 47 y/o male with PMH of alcohol abuse with withdrawal and seizures in the past, polysubstance abuse. Admitted on 04/21/18 for alcohol and heroin detox. Pt began having visual and auditory hallucinations on 04/23 and transferred to medicine for DTs. Delirium Tremens Resolved - A&O x3, denies auditory & visual hallucinations (04/27) - C/w CIWA protocol - C/w Lorazepam 1 mg BID AD[facility] (04/27) - C/w Lorazepam 1 mg IVP Q2H PRN - NS IVF reduced to 50 mL/hr (from 100 mL/hr 04/27) - C/w Seizure precautions, fall precautions - Pt's etoh level on admission was 40 - Last drink 04/21 at 6 am as per psych note - UDS positive for opiates and benzos on admission Alcohol abuse disorder with dependance - Ammonia is <9 on admission - INR is 1.0 Transaminitis, 2/2 to alcohol abuse - AST/ALT/ALP is 125/61/88 on admission - downtrending -hepatitis panel is negative Poly substance abuse disorder - Detox as per psych - Trazodone 100 mg HS - Zofran 4mg Q4 PRN - Nicotine 1 patch daily - Lorazepam 1 mg PO BID [facility] - Lorazepam 1mg IVP Q2H PRN - Imodium 4mg Q8 PRN - Kepppra 250 mg PO BID - Hydroxyzine 25 mg PO Q8 PRN - Haldol 5mg PO Q4 PRN - Clonidine 0.1 PO Q8 PRN - Maalox 40 ml PO TID PRn - Benadryl 50 mg PO Q4 PRN Opiate withdrawal - Detox as per psych - Trazodone 100 mg HS - Zofran 4mg Q4 PRN - Nicotine 1 patch daily - Lorazepam 1 mg PO BID [facility] - Lorazepam 1mg IVP Q2H PRN - Imodium 4mg Q8 PRN - Kepppra 250 mg PO BID - Hydroxyzine 25 mg PO Q8 PRN - Haldol 5mg PO Q4 PRN - Clonidine 0.1 PO Q8 PRN - Maalox 40 ml PO TID PRn - Benadryl 50 mg PO Q4 PRN Back pain - Chronic, no deformities observed - Toradol 30 mg IVP Q6H PRN pain Prophylaxis - Regular Diet Dispo: No current beds in detox, will continue to monitor for one more day and will likely D/C tomorrow 04/28. D/w Dr. Leeanna Wells PGY1 <Mason Durán H - Last Filed: 04/27/18 15:34> Objective - Vital Signs/Intake and Output Vital Signs (last 24 hours): Temp Pulse Resp BP Pulse Ox 98.9 F 62 20 139/83 100 04/27/18 08:00 04/27/18 08:00 04/27/18 08:00 04/27/18 08:00 04/27/18 08:00 Intake and Output: 04/27/18 04/27/18 06:59 18:59 Intake Total 2190 400 Balance 2190 400 - Medications Medications: Current Medications Acetaminophen (Tylenol 325mg Tab) 650 mg PO Q6 PRN PRN Reason: Pain, moderate (4-7) Last Admin: 04/22/18 16:02 Dose: 650 mg Al Hydrox/Mg Hydrox/Simethicone (Maalox 30 Ml) 30 ml PO TID PRN PRN Reason: Indigestion / Heartburn Clonidine HCl (Catapres) 0.1 mg PO Q8 PRN PRN Reason: Opiate reversal Last Admin: 04/24/18 16:40 Dose: 0.1 mg Diphenhydramine HCl (Benadryl) 50 mg PO Q4 PRN PRN Reason: eps Last Admin: 04/27/18 10:27 Dose: 50 mg Haloperidol (Haldol) 5 mg PO Q4 PRN PRN Reason: Agitation Last Admin: 04/27/18 10:27 Dose: 5 mg Hydroxyzine HCl (Atarax) 25 mg PO Q8 PRN PRN Reason: Anxiety Last Admin: 04/26/18 04:40 Dose: 25 mg Sodium Chloride (Sodium Chloride 0.9%) 1,000 mls @ 50 mls/hr IV .Q20H [facility] Last Admin: 04/27/18 13:58 Dose: 50 mls/hr Ibuprofen (Motrin Tab) 600 mg PO Q6 PRN PRN Reason: pain Last Admin: 04/26/18 20:56 Dose: 600 mg Ketorolac Tromethamine (Toradol) 30 mg IVP Q6 PRN PRN Reason: Pain, moderate (4-7) Last Admin: 04/27/18 13:52 Dose: 30 mg Levetiracetam (Keppra) 250 mg PO BID [facility] Last Admin: 04/27/18 09:31 Dose: 250 mg Loperamide HCl (Imodium) 4 mg PO Q8 PRN PRN Reason: Diarrhea Lorazepam (Ativan) 1 mg IVP Q2H PRN PRN Reason: CIWA>15 Lorazepam (Ativan) 1 mg PO BID [facility] Stop: 04/28/18 10:01 Nicotine (Nicoderm Cq) 1 patch TD DAILY [facility] Last Admin: 04/27/18 09:31 Dose: 1 patch Ondansetron HCl (Zofran Tab) 4 mg PO Q4 PRN PRN Reason: Nausea/Vomiting Trazodone HCl (Desyrel) 100 mg PO HS [facility] Last Admin: 04/26/18 21:37 Dose: 100 mg - Labs Labs: 04/27/18 07:15 04/27/18 07:15 PT 11.2 SECONDS (9.7-12.2) 04/24/18 17:03 INR 1.0 04/24/18 17:03 APTT 31 SECONDS (21-34) 04/24/18 17:03 Attending/Attestation - Attestation I have personally seen and examined this patient.: Yes I have fully participated in the care of the patient.: Yes I have reviewed all pertinent clinical information, including history, physical exam and plan: Yes Notes (Text): 04/27/18 15:30 Medical attending: Patient was seen and examined by me. Agree with the above note by the resident The patient was much more awake and alert today. Yesterday the IV ativan was discontinued and he was changed back to PO medication. He was like he was yesterday - asking for pain medication. And again I explained to the patient that we were reluctant to provide narcotic class medication because of his history. Possibly we will discharge patient tommorow depending on how he does Mason Durán
[2018-04-27 07:46] LABS: ALB/GLOB RATIO 1.1 (1.0-2.1); ALBUMIN 3.6 g/dL (3.5-5.0); ALT/SGPT 134 U/L (21-72); AST/SGOT 86 U/L (17-59); BLOOD UREA NITROGEN 10 mg/dL (9-20); CALCIUM 9.2 mg/dl (8.6-10.4); GFR NON-AFRICAN AMERICAN > 60
[2018-04-27 08:07] LABS: BASO # 0.1 K/uL (0.0-0.2); BASO % 0.8 % (0.0-2.0); EOS # 0.2 K/uL (0.0-0.7); EOS % 3.7 % (0.0-4.0); HEMOGLOBIN 13.2 g/dL (12.0-18.0); MEAN CELL VOLUME 105.9 fL (80.0-94.0); MEAN CORPUSCULAR HEMOGLOBIN 36.7 pg (27.0-31.0); MEAN CORPUSCULAR HGB CONC 34.6 g/dL (33.0-37.0); MEAN PLATELET VOLUME 7.4 fL (7.2-11.7); MONO # 0.7 K/uL (0.0-0.8); MONO % 12.2 % (0.0-10.0); NEUT % 66.3 % (50.0-75.0); NRBC % 0.1 % (0.0-2.0); RBC 3.59 Mil/uL (4.40-5.90); RED CELL DISTRIBUTION WIDTH 13.1 % (11.5-14.5)
--- NOTE | 2018-04-27 12:11 | PCM.PYCHPN ---
Psychiatric Progress Note - Psychiatric Progress Note Patient seen today, length of contact: 18 min Patient Chief Complaint: "I'm better" Problems Identified/Issues Discussed: The pt is seen, chart reviewed, case discussed with staff. The pt is compliant with medications and reports no side-effects. Symptoms are improving but needs more time to stabilize. After care discussed, support and psychoeducation given. Medication Change: Yes (SUBUTEX AND ATIVAN TAPER) Medical Record Reviewed: Yes Mental Status Examination - Cognitive Function Orientation: Person, Place, Situation, Time Memory: Impaired Attention: Poor Concentration: Poor Association: Loose Fund of Knowledge: WNL - Mood Mood: Anxious - Affect Affect: Constricted - Speech Speech: Slurred - Formal Thought Process Formal Thought Process: Loosening of associations - Suicidal Ideation Suicidal Ideation: No - Homicidal Ideation Homicidal Ideation: No Goal/Treatment Plan - Goal/Treatment Plan Need for Continued Stay: Severe functional impairment, Other (Medical) Progress Toward Problem(s) and Goals/Treatment Plan: Continue medications Support and psychoeducation daily Attend groups and activities daily After care planning by counselors Get medical consult CMP, ammonia, MG ordered Extra Ativan po/im as needed Cleared by psych for d/c tomorrow the earliest Estimated Date of D/C: 04/27/18
[2018-04-28 08:05] LABS: BASO # 0.1 K/uL (0.0-0.2); BASO % 1.4 % (0.0-2.0); EOS # 0.2 K/uL (0.0-0.7); EOS % 3.3 % (0.0-4.0); LYMPH # 1.1 K/uL (1.0-4.3); LYMPH % 17.4 % (20.0-40.0); MEAN CELL VOLUME 105.7 fL (80.0-94.0); MEAN PLATELET VOLUME 7.3 fL (7.2-11.7); MONO % 16.2 % (0.0-10.0); NEUT # 3.7 K/uL (1.8-7.0); NEUT % 61.7 % (50.0-75.0); RBC 3.5 Mil/uL (4.40-5.90); RED CELL DISTRIBUTION WIDTH 12.8 % (11.5-14.5); WHITE BLOOD COUNT 6.1 K/uL (4.8-10.8)
[2018-04-28 08:33] LABS: ALB/GLOB RATIO 1.2 (1.0-2.1); ALBUMIN 3.8 g/dL (3.5-5.0); ALT/SGPT 132 U/L (21-72); AST/SGOT 79 U/L (17-59); BLOOD UREA NITROGEN 10 mg/dL (9-20); CALCIUM 9.4 mg/dl (8.6-10.4); GFR NON-AFRICAN AMERICAN > 60
[2018-04-28] MEDS: Sodium Chloride 0.9% 1,000 ML IV SCH (09:12)
--- NOTE | 2018-04-28 09:37 | CP.PCM.PN ---
<Heriberto Drummond - Last Filed: 04/28/18 15:01> Subjective - Date & Time of Evaluation Date of Evaluation: 04/28/18 Time of Evaluation: 09:34 - Subjective Subjective: PGY-1 Medicine progress note for Dr. Durán Pt was seen and examined at bedside. No acute vents overnight. Pt is eating breakfast. He reports that he feels shaky, but has no new complaints. Pt reports chronic back pain, which is unchanged from yesterday. Patient denies fever, chills, chest pain, sob, palpitations, abdominal pain, nausea, n/v/d, no seizure activity, no bowel or bladder incontinence. Pt reports that he has been eating and drinking well. Reports he is still fearful of walking because of the shakiness. Objective - Vital Signs/Intake and Output Vital Signs (last 24 hours): Temp Pulse Resp BP Pulse Ox 99 F 77 20 113/77 98 04/28/18 08:00 04/28/18 08:00 04/28/18 08:00 04/28/18 08:00 04/28/18 08:00 Intake and Output: 04/28/18 04/28/18 06:59 18:59 Intake Total 1390 Output Total 950 Balance 440 - Medications Medications: Current Medications Acetaminophen (Tylenol 325mg Tab) 650 mg PO Q6 PRN PRN Reason: Pain, moderate (4-7) Last Admin: 04/22/18 16:02 Dose: 650 mg Al Hydrox/Mg Hydrox/Simethicone (Maalox 30 Ml) 30 ml PO TID PRN PRN Reason: Indigestion / Heartburn Clonidine HCl (Catapres) 0.1 mg PO Q8 PRN PRN Reason: Opiate reversal Last Admin: 04/24/18 16:40 Dose: 0.1 mg Diphenhydramine HCl (Benadryl) 50 mg PO Q4 PRN PRN Reason: eps Last Admin: 04/28/18 03:39 Dose: 50 mg Haloperidol (Haldol) 5 mg PO Q4 PRN PRN Reason: Agitation Last Admin: 04/28/18 03:39 Dose: 5 mg Hydroxyzine HCl (Atarax) 25 mg PO Q8 PRN PRN Reason: Anxiety Last Admin: 04/26/18 04:40 Dose: 25 mg Sodium Chloride (Sodium Chloride 0.9%) 1,000 mls @ 50 mls/hr IV .Q20H [facility] Last Admin: 04/28/18 09:12 Dose: 50 mls/hr Ibuprofen (Motrin Tab) 600 mg PO Q6 PRN PRN Reason: pain Last Admin: 04/26/18 20:56 Dose: 600 mg Ketorolac Tromethamine (Toradol) 30 mg IVP Q6 PRN PRN Reason: Pain, moderate (4-7) Last Admin: 04/28/18 09:09 Dose: 30 mg Levetiracetam (Keppra) 250 mg PO BID [facility] Last Admin: 04/28/18 09:08 Dose: 250 mg Loperamide HCl (Imodium) 4 mg PO Q8 PRN PRN Reason: Diarrhea Lorazepam (Ativan) 1 mg IVP Q2H PRN PRN Reason: CIWA>15 Lorazepam (Ativan) 1 mg PO BID [facility] Stop: 04/28/18 10:01 Last Admin: 04/28/18 09:08 Dose: 1 mg Nicotine (Nicoderm Cq) 1 patch TD DAILY [facility] Last Admin: 04/28/18 09:16 Dose: 1 patch Ondansetron HCl (Zofran Tab) 4 mg PO Q4 PRN PRN Reason: Nausea/Vomiting Trazodone HCl (Desyrel) 100 mg PO HS [facility] Last Admin: 04/27/18 22:08 Dose: 100 mg - Labs Labs: 04/28/18 07:54 04/28/18 07:54 PT 11.2 SECONDS (9.7-12.2) 04/24/18 17:03 INR 1.0 04/24/18 17:03 APTT 31 SECONDS (21-34) 04/24/18 17:03 - Constitutional Appears: Non-toxic, No Acute Distress - Head Exam Head Exam: NORMAL INSPECTION - Eye Exam Eye Exam: EOMI, Normal appearance - ENT Exam ENT Exam: Mucous Membranes Moist Additional comments: (+) bite juan luis on right lateral ventral tongue, with ecchymosis. no active bleeding - Respiratory Exam Respiratory Exam: Clear to Ausculation Bilateral. absent: Rales, Rhonchi, Wheezes, Respiratory Distress - Cardiovascular Exam Cardiovascular Exam: REGULAR RHYTHM, +S1, +S2 - GI/Abdominal Exam GI & Abdominal Exam: Soft, Tenderness (mild diffuse abdominal tenderness), Normal Bowel Sounds - Extremities Exam Extremities Exam: Full ROM, Normal Capillary Refill, Normal Inspection. absent: Calf Tenderness, Pedal Edema Additional comments: (+) mild tremors on outstretched hands, bilaterally (-) asterixis - Back Exam Back Exam: NORMAL INSPECTION - Neurological Exam Neurological Exam: Alert, Awake - Psychiatric Exam Psychiatric exam: Normal Affect, Normal Mood - Skin Skin Exam: Dry, Normal Color, Warm Assessment and Plan - Assessment and Plan (Free Text) Assessment: 47 y/o male with PMH of alcohol abuse with withdrawal and seizures in the past, polysubstance abuse. Admitted on 04/21/18 for alcohol and heroin detox. Pt began having visual and auditory hallucinations on 04/23 and transferred to medicine for DTs. Delirium Tremens Resolved - A&O x3, denies auditory & visual hallucinations - Not tachycardic, not hypertensive - C/w CIWA protocol - Lorazepam 1 mg IVP Q2H PRN CIWA >15 - Lorazepam 1 mg PO BID as pr psych - c/w NS IVF 50 mL/hr - C/w Seizure precautions, fall precautions - Pt's etoh level on admission was 40 - Last drink 04/21 at 6 am as per psych note - UDS positive for opiates and benzos on admission Alcohol abuse disorder with dependance - Ammonia is <9 on admission - INR is 1.0 Transaminitis, 2/2 to alcohol abuse - AST/ALT/ALP is 125/61/88 on admission - downtrending -hepatitis panel is negative Poly substance abuse disorder - Detox as per psych - Trazodone 100 mg HS - Zofran 4mg Q4 PRN - Nicotine 1 patch daily - Lorazepam 1 mg PO BID [facility] - Lorazepam 1mg IVP Q2H PRN - Imodium 4mg Q8 PRN - Keppra 250 mg PO BID - Hydroxyzine 25 mg PO Q8 PRN - Haldol 5mg PO Q4 PRN - Clonidine 0.1 PO Q8 PRN - Maalox 40 ml PO TID PRN - Benadryl 50 mg PO Q4 PRN Opiate withdrawal - Detox as per psych - Trazodone 100 mg HS - Zofran 4mg Q4 PRN - Nicotine 1 patch daily - Lorazepam 1 mg PO BID [facility] - Lorazepam 1mg IVP Q2H PRN - Imodium 4mg Q8 PRN - Keppra 250 mg PO BID - Hydroxyzine 25 mg PO Q8 PRN - Haldol 5mg PO Q4 PRN - Clonidine 0.1 PO Q8 PRN - Maalox 40 ml PO TID PRN - Benadryl 50 mg PO Q4 PRN Back pain - Chronic, and improving as per pt - Toradol 30 mg IVP Q6H PRN pain Prophylaxis - Regular Diet Dispo: No current beds in detox, will continue to monitor. Possible discharge tomorrow if eating, drinking and able to ambulate without difficulties. Case discussed with attending physician, Dr. Leeanna Drummond PGY-1 <Mason Durán - Last Filed: 04/28/18 17:49> Objective - Vital Signs/Intake and Output Vital Signs (last 24 hours): Temp Pulse Resp BP Pulse Ox 98.3 F 66 20 123/82 99 04/28/18 16:00 04/28/18 16:00 04/28/18 16:00 04/28/18 16:00 04/28/18 16:00 Intake and Output: 04/28/18 04/28/18 06:59 18:59 Intake Total 1390 700 Output Total 950 Balance 440 700 - Medications Medications: Current Medications Acetaminophen (Tylenol 325mg Tab) 650 mg PO Q6 PRN PRN Reason: Pain, moderate (4-7) Last Admin: 04/22/18 16:02 Dose: 650 mg Al Hydrox/Mg Hydrox/Simethicone (Maalox 30 Ml) 30 ml PO TID PRN PRN Reason: Indigestion / Heartburn Clonidine HCl (Catapres) 0.1 mg PO Q8 PRN PRN Reason: Opiate reversal Last Admin: 04/24/18 16:40 Dose: 0.1 mg Diphenhydramine HCl (Benadryl) 50 mg PO Q4 PRN PRN Reason: eps Last Admin: 04/28/18 03:39 Dose: 50 mg Haloperidol (Haldol) 5 mg PO Q4 PRN PRN Reason: Agitation Last Admin: 04/28/18 03:39 Dose: 5 mg Hydroxyzine HCl (Atarax) 25 mg PO Q8 PRN PRN Reason: Anxiety Last Admin: 04/26/18 04:40 Dose: 25 mg Ibuprofen (Motrin Tab) 600 mg PO Q6 PRN PRN Reason: pain Last Admin: 04/26/18 20:56 Dose: 600 mg Ketorolac Tromethamine (Toradol) 30 mg IVP Q6 PRN PRN Reason: Pain, severe (8-10) Last Admin: 04/28/18 16:38 Dose: 30 mg Levetiracetam (Keppra) 250 mg PO BID [facility] Last Admin: 04/28/18 17:25 Dose: 250 mg Loperamide HCl (Imodium) 4 mg PO Q8 PRN PRN Reason: Diarrhea Lorazepam (Ativan) 1 mg IVP Q2H PRN PRN Reason: CIWA>15 Nicotine (Nicoderm Cq) 1 patch TD DAILY [facility] Last Admin: 04/28/18 09:16 Dose: 1 patch Ondansetron HCl (Zofran Tab) 4 mg PO Q4 PRN PRN Reason: Nausea/Vomiting Trazodone HCl (Desyrel) 100 mg PO HS [facility] Last Admin: 04/27/18 22:08 Dose: 100 mg - Labs Labs: 04/28/18 07:54 04/28/18 07:54 PT 11.2 SECONDS (9.7-12.2) 04/24/18 17:03 INR 1.0 04/24/18 17:03 APTT 31 SECONDS (21-34) 04/24/18 17:03 Attending/Attestation - Attestation I have personally seen and examined this patient.: Yes I have fully participated in the care of the patient.: Yes I have reviewed all pertinent clinical information, including history, physical exam and plan: Yes Notes (Text): 04/28/18 17:49 Medical attending: Patient was seen and examined by me, agrees the above note by the medical device assembler. Today the patient was very awake, alert he was quickly answering all his questi ons. This being said he continues to ask for pain medication, and again I explained to them as I've explained before that we will not be giving any Percocet and oxycodone Roxicodone or any of the narcotic class pain medication this is due to his history. I told him this directly to him. He then asked if we could write trazodone or Ambien for sleeping when he is discharged tomorrow, and will think about giving the Ambien. Currently his lab work is stable besides a somewhat elevated LFTs. Both these LFTs are decreasing He explains that he about 50% of his meal today. As mentioned previously the patient has been taking a lot more alcohol and has had minimal appetites I explained to him that the alcohol is suppressing his appetite that he has to eat normal food and ordered came back strength and nutrition Very likely will discharge the patient tomorrow. Thank you very much Mason Durán
[2018-04-28 16:27] VITALS: O2SAT 99
[2018-04-29 07:17] LABS: BASO # 0.2 K/uL (0.0-0.2); BASO % 2.3 % (0.0-2.0); EOS # 0.2 K/uL (0.0-0.7); EOS % 2.4 % (0.0-4.0); HEMOGLOBIN 13.1 g/dL (12.0-18.0); LYMPH % 15.3 % (20.0-40.0); MEAN CELL VOLUME 104.5 fL (80.0-94.0); MEAN CORPUSCULAR HEMOGLOBIN 36.5 pg (27.0-31.0); MEAN CORPUSCULAR HGB CONC 34.9 g/dL (33.0-37.0); MEAN PLATELET VOLUME 7.1 fL (7.2-11.7); MONO % 15.3 % (0.0-10.0); NEUT # 4.3 K/uL (1.8-7.0); NEUT % 64.7 % (50.0-75.0); RBC 3.6 Mil/uL (4.40-5.90); RED CELL DISTRIBUTION WIDTH 12.8 % (11.5-14.5); WHITE BLOOD COUNT 6.6 K/uL (4.8-10.8)
[2018-04-29 07:51] LABS: ALB/GLOB RATIO 1.3 (1.0-2.1); ALT/SGPT 133 U/L (21-72); AST/SGOT 83 U/L (17-59); BLOOD UREA NITROGEN 13 mg/dL (9-20); CALCIUM 9.4 mg/dl (8.6-10.4); GFR NON-AFRICAN AMERICAN > 60
[2018-04-29 09:01] VITALS: BP 135/85; PULSE 67; TEMP 98.8
--- NOTE | 2018-04-29 11:17 | CP.PCM.DIS ---
<Riccardo Lopez E - Last Filed: 04/29/18 12:44> Provider - Provider Date of Admission: 04/21/18 14:52 Attending physician: Mason Durán DO Time Spent in preparation of Discharge (in minutes): 40 Diagnosis - Discharge Diagnosis (1) Alcohol intoxication Status: Acute (2) Alcohol withdrawal Status: Acute Hospital Course - Lab Results Lab Results: Most Recent Lab Values WBC 6.6 K/uL (4.8-10.8) 04/29/18 07:09 RBC 3.60 Mil/uL (4.40-5.90) L 04/29/18 07:09 Hgb 13.1 g/dL (12.0-18.0) 04/29/18 07:09 Hct 37.6 % (35.0-51.0) 04/29/18 07:09 MCV 104.5 fL (80.0-94.0) H 04/29/18 07:09 MCH 36.5 pg (27.0-31.0) H 04/29/18 07:09 MCHC 34.9 g/dL (33.0-37.0) 04/29/18 07:09 RDW 12.8 % (11.5-14.5) 04/29/18 07:09 Plt Count 351 K/uL (130-400) 04/29/18 07:09 MPV 7.1 fL (7.2-11.7) L 04/29/18 07:09 Neut % (Auto) 64.7 % (50.0-75.0) 04/29/18 07:09 Lymph % (Auto) 15.3 % (20.0-40.0) L 04/29/18 07:09 [place] % (Auto) 15.3 % (0.0-10.0) H 04/29/18 07:09 Eos % (Auto) 2.4 % (0.0-4.0) 04/29/18 07:09 Baso % (Auto) 2.3 % (0.0-2.0) H 04/29/18 07:09 Neut # (Auto) 4.3 K/uL (1.8-7.0) 04/29/18 07:09 Lymph # (Auto) 1.0 K/uL (1.0-4.3) 04/29/18 07:09 [place] # (Auto) 1.0 K/uL (0.0-0.8) H 04/29/18 07:09 Eos # (Auto) 0.2 K/uL (0.0-0.7) 04/29/18 07:09 Baso # (Auto) 0.2 K/uL (0.0-0.2) 04/29/18 07:09 Neutrophils % (Manual) 86 % (50-75) H 04/25/18 11:20 Lymphocytes % (Manual) 9 % (20-40) L 04/25/18 11:20 Monocytes % (Manual) 3 % (0-10) 04/25/18 11:20 Eosinophils % (Manual) 2 % (0-4) 04/25/18 11:20 Platelet Estimate Normal (NORMAL) 04/25/18 11:20 Polychromasia Slight 04/21/18 11:11 Hypochromasia (manual) Slight 04/21/18 11:11 Anisocytosis (manual) Slight 04/21/18 11:11 Macrocytosis (manual) Slight 04/25/18 11:20 PT 11.2 SECONDS (9.7-12.2) 04/24/18 17:03 INR 1.0 04/24/18 17:03 APTT 31 SECONDS (21-34) 04/24/18 17:03 Sodium 143 mmol/L (132-148) 04/29/18 07:09 Potassium 3.7 mmol/L (3.6-5.2) 04/29/18 07:09 Chloride 108 mmol/L (98-107) H 04/29/18 07:09 Carbon Dioxide 26 mmol/L (22-30) 04/29/18 07:09 Anion Gap 13 (10-20) 04/29/18 07:09 BUN 13 mg/dL (9-20) 04/29/18 07:09 Creatinine 0.7 mg/dL (0.8-1.5) L 04/29/18 07:09 Est GFR ( Amer) > 60 04/29/18 07:09 Est GFR (Non-Af Amer) > 60 04/29/18 07:09 POC Glucose (mg/dL) 181 mg/dL (65-110) H 04/21/18 10:37 Random Glucose 92 mg/dL (75-110) 04/29/18 07:09 Calcium 9.4 mg/dl (8.6-10.4) 04/29/18 07:09 Phosphorus 4.2 mg/dL (2.5-4.5) 04/29/18 07:09 Magnesium 1.8 mg/dL (1.6-2.3) 04/29/18 07:09 Total Bilirubin 0.7 mg/dL (0.2-1.3) 04/29/18 07:09 AST 83 U/L (17-59) H 04/29/18 07:09 ALT 133 U/L (21-72) H 04/29/18 07:09 Alkaline Phosphatase 67 U/L (38-126) 04/29/18 07:09 Ammonia < 9 umol/L (9-33) L 04/24/18 17:03 Total Protein 7.1 g/dL (6.3-8.3) 04/29/18 07:09 Albumin 4.0 g/dL (3.5-5.0) 04/29/18 07:09 Globulin 3.1 gm/dL (2.2-3.9) 04/29/18 07:09 Albumin/Globulin Ratio 1.3 (1.0-2.1) 04/29/18 07:09 Urine Color Yellow (YELLOW) 04/21/18 13:53 Urine Clarity Hazy (Clear) 04/21/18 13:53 Urine pH 6.0 (5.0-8.0) 04/21/18 13:53 Ur Specific [place] 1.020 (1.003-1.030) 04/21/18 13:53 Urine Protein 2+ mg/dL (NEGATIVE) H 04/21/18 13:53 Urine Glucose (UA) 2+ mg/dL (Normal) H 04/21/18 13:53 Urine Ketones Trace mg/dL (NEGATIVE) 04/21/18 13:53 Urine Blood Trace (NEGATIVE) H 04/21/18 13:53 Urine Nitrate Negative (NEGATIVE) 04/21/18 13:53 Urine Bilirubin Negative (NEGATIVE) 04/21/18 13:53 Urine Urobilinogen 2.0 mg/dL (0.2-1.0) 04/21/18 13:53 Ur Leukocyte Esterase Trace Stan/uL (Negative) H 04/21/18 13:53 Urine WBC (Auto) 23 /hpf (0-5) H 04/21/18 13:53 Urine RBC (Auto) 20 /hpf (0-3) H 04/21/18 13:53 Hyaline Casts 3-5 /lpf (0-2) H 04/21/18 13:53 Urine Opiates Screen Positive (NEGATIVE) H 04/21/18 13:53 Urine Methadone Screen Negative (NEGATIVE) 04/21/18 13:53 Ur Barbiturates Screen Negative (NEGATIVE) 04/21/18 13:53 Ur Phencyclidine Scrn Negative (NEGATIVE) 04/21/18 13:53 Ur Amphetamines Screen Negative (NEGATIVE) 04/21/18 13:53 U Benzodiazepines Scrn Positive (NEGATIVE) 04/21/18 13:53 U Oth Cocaine Metabols Negative (NEGATIVE) 04/21/18 13:53 U Cannabinoids Screen Negative (NEGATIVE) 04/21/18 13:53 Alcohol, Quantitative 40 mg/dl (0-10) H 04/21/18 11:11 Hepatitis A IgM Ab Negative (NEGATIVE) 04/25/18 14:35 Hep Bs Antigen Negative (NEGATIVE) 04/25/18 14:35 Hep B Core IgM Ab Negative (NEGATIVE) 04/25/18 14:35 Hepatitis C Antibody Negative (NEGATIVE) 04/25/18 14:35 - Hospital Course Hospital Course: HPI ( As per admission): 47 y/o male with PMH of alcohol abuse with withdrawal and seizures in the past, poly substance abuse. Admitted on 04/21/18 for alcohol and heroin detox. Pt began having visual and auditory hallucinations last night (04/23). Pt is tremulous and feels anxious. He reports that he just wants a cigarrette to relax, but states that his mom (whom he believes to be in the room) does not let him. Pt states that he had a seizure 2 days ago, although nurses do not confirm this. Pt with bruising and bite juan luis on tongue. Pt is complaining of a slight headache. Denies visual changes, chest pain, sob, abdominal pain, n/v/d, numbness or tingling. Pt required extra doses of ativan and haldol with benadryl last night in order to calm him during his agitated state with hallucinations. Pt's Ativan was increased to 2 mg PO, but he remained tremulous and agitated this morning. Hospital course: Patient was originated admitted to 04/22/18 for alcohol detox and heroin detox. However, patient was transferred to medicine service due to worsening symptoms of alcohol withdrawal (Delirium Tremens), while being managed on appropriate medications and was followed by psychiatric attending. Patient continued to improve over hospital course with improving symptoms. On the day of discharge, patient was able to ambulate without any difficulties or gait instability with very minimal hand shakes. Patient was eating and drinking with no difficulties. Patient denies any complaints or acute issues. Patient was given appropriate information regarding AA meetings and educated on the complications of alcohol abuse as well as appropriate medications. Discharge Exam - Head Exam Head Exam: NORMAL INSPECTION - Eye Exam Eye Exam: EOMI, Normal appearance - ENT Exam ENT Exam: Mucous Membranes Moist - Respiratory Exam Respiratory Exam: Clear to PA & Lateral, NORMAL BREATHING PATTERN, UNREMARKABLE - Cardiovascular Exam Cardiovascular Exam: REGULAR RHYTHM, +S1, +S2 - GI/Abdominal Exam GI & Abdominal Exam: Normal Bowel Sounds. absent: Soft, Tenderness - Extremities Exam Extremities exam: normal inspection - Neurological Exam Neurological exam: Alert, Normal Gait, Oriented x3 - Psychiatric Exam Psychiatric exam: Normal Affect - Skin Skin Exam: Normal Color Discharge Plan - Discharge Medications Prescriptions: RX: Folic Acid 1 mg PO DAILY 30 Days #30 tab Levetiracetam [Keppra] 250 mg PO BID 30 Days #60 tablet RX: Multivitamin [Daily Vitamin Formula] 1 each PO DAILY 30 Days #30 tablet RX: Thiamine [Vitamin B1 Tab] 100 mg PO DAILY 30 Days #30 tab RX: traZODone [Desyrel] 25 mg PO HS #5 tab Zolpidem [Ambien] 5 mg PO HS #5 tab - Follow Up Plan Condition: STABLE Disposition: HOME/ ROUTINE Instructions: Drug Abuse and Drug Addiction (DC), Prescription Drug Abuse (DC), Prescription Drug Misuse, Alcohol Withdrawal, Alcohol Abuse and Alcoholism (DC), Weaning Patients Off of Pain Drugs Additional Instructions: Please discharge patient home Please continue the following medications: - Folic acid 1 tab PO daily - Thiamine 1 tab PO daily - Keppra 250mg PO BID - Multivitamin 1 Tab PO daily - Ambien 5mg PO HS ( Only 5 tablets) - Trazadone 25mg PO HS ( Only 5 tablets) Please follow up with [facility] in order to establish care Please follow reestablish AA meetings upon discharge Please continue to with nutrition and hydration Please take care Discharge Hotline Numbers: [facility] 24 Hour Hotline: 6-145 HELP (3177) AA- Alcoholics Anonymous 24 Hour Hotline: NA- Narcotics Anonymous 24 Hour Hotline: [place] [facility] Hotline - [place] Quit[facility] If needed you can reach the detox unit at Avoid all mood and mind altering substances including alcohol. Make every effort to make 90 meetings in 90 days and obtain a sponsor and get involved in 12 step recovery. Follow up with you primary doctor for your medical needs Nutrition: Eat balanced meals incorporating fruits, vegetables and protein. Drink plenty of water throughout the day at least 8 to 10 cups. Sleep is extremely important in your recovery. Follow Up Appointments: [facility], [facility] [address] [facility], [address] [place], [place] [id number] Appointment: Pending Transportation: Pending <Mason Durán - Last Filed: 04/29/18 15:45> Provider - Provider Date of Admission: 04/21/18 14:52 Attending physician: Mason Durán DO Hospital Course - Lab Results Lab Results: Most Recent Lab Values WBC 6.6 K/uL (4.8-10.8) 04/29/18 07:09 RBC 3.60 Mil/uL (4.40-5.90) L 04/29/18 07:09 Hgb 13.1 g/dL (12.0-18.0) 04/29/18 07:09 Hct 37.6 % (35.0-51.0) 04/29/18 07:09 MCV 104.5 fL (80.0-94.0) H 04/29/18 07:09 MCH 36.5 pg (27.0-31.0) H 04/29/18 07:09 MCHC 34.9 g/dL (33.0-37.0) 04/29/18 07:09 RDW 12.8 % (11.5-14.5) 04/29/18 07:09 Plt Count 351 K/uL (130-400) 04/29/18 07:09 MPV 7.1 fL (7.2-11.7) L 04/29/18 07:09 Neut % (Auto) 64.7 % (50.0-75.0) 04/29/18 07:09 Lymph % (Auto) 15.3 % (20.0-40.0) L 04/29/18 07:09 [place] % (Auto) 15.3 % (0.0-10.0) H 04/29/18 07:09 Eos % (Auto) 2.4 % (0.0-4.0) 04/29/18 07:09 Baso % (Auto) 2.3 % (0.0-2.0) H 04/29/18 07:09 Neut # (Auto) 4.3 K/uL (1.8-7.0) 04/29/18 07:09 Lymph # (Auto) 1.0 K/uL (1.0-4.3) 04/29/18 07:09 [place] # (Auto) 1.0 K/uL (0.0-0.8) H 04/29/18 07:09 Eos # (Auto) 0.2 K/uL (0.0-0.7) 04/29/18 07:09 Baso # (Auto) 0.2 K/uL (0.0-0.2) 04/29/18 07:09 Neutrophils % (Manual) 86 % (50-75) H 04/25/18 11:20 Lymphocytes % (Manual) 9 % (20-40) L 04/25/18 11:20 Monocytes % (Manual) 3 % (0-10) 04/25/18 11:20 Eosinophils % (Manual) 2 % (0-4) 04/25/18 11:20 Platelet Estimate Normal (NORMAL) 04/25/18 11:20 Polychromasia Slight 04/21/18 11:11 Hypochromasia (manual) Slight 04/21/18 11:11 Anisocytosis (manual) Slight 04/21/18 11:11 Macrocytosis (manual) Slight 04/25/18 11:20 PT 11.2 SECONDS (9.7-12.2) 04/24/18 17:03 INR 1.0 04/24/18 17:03 APTT 31 SECONDS (21-34) 04/24/18 17:03 Sodium 143 mmol/L (132-148) 04/29/18 07:09 Potassium 3.7 mmol/L (3.6-5.2) 04/29/18 07:09 Chloride 108 mmol/L (98-107) H 04/29/18 07:09 Carbon Dioxide 26 mmol/L (22-30) 04/29/18 07:09 Anion Gap 13 (-20) 04/29/18 07:09 BUN 13 mg/dL (9-20) 04/29/18 07:09 Creatinine 0.7 mg/dL (0.8-1.5) L 04/29/18 07:09 Est GFR ( Amer) > 60 04/29/18 07:09 Est GFR (Non-Af Amer) > 60 04/29/18 07:09 POC Glucose (mg/dL) 181 mg/dL (65-110) H 04/21/18 10:37 Random Glucose 92 mg/dL (75-110) 04/29/18 07:09 Calcium 9.4 mg/dl (8.6-10.4) 04/29/18 07:09 Phosphorus 4.2 mg/dL (2.5-4.5) 04/29/18 07:09 Magnesium 1.8 mg/dL (1.6-2.3) 04/29/18 07:09 Total Bilirubin 0.7 mg/dL (0.2-1.3) 04/29/18 07:09 AST 83 U/L (17-59) H 04/29/18 07:09 ALT 133 U/L (21-72) H 04/29/18 07:09 Alkaline Phosphatase 67 U/L (38-126) 04/29/18 07:09 Ammonia < 9 umol/L (9-33) L 04/24/18 17:03 Total Protein 7.1 g/dL (6.3-8.3) 04/29/18 07:09 Albumin 4.0 g/dL (3.5-5.0) 04/29/18 07:09 Globulin 3.1 gm/dL (2.2-3.9) 04/29/18 07:09 Albumin/Globulin Ratio 1.3 (1.0-2.1) 04/29/18 07:09 Urine Color Yellow (YELLOW) 04/21/18 13:53 Urine Clarity Hazy (Clear) 04/21/18 13:53 Urine pH 6.0 (5.0-8.0) 04/21/18 13:53 Ur Specific [place] 1.020 (1.003-1.030) 04/21/18 13:53 Urine Protein 2+ mg/dL (NEGATIVE) H 04/21/18 13:53 Urine Glucose (UA) 2+ mg/dL (Normal) H 04/21/18 13:53 Urine Ketones Trace mg/dL (NEGATIVE) 04/21/18 13:53 Urine Blood Trace (NEGATIVE) H 04/21/18 13:53 Urine Nitrate Negative (NEGATIVE) 04/21/18 13:53 Urine Bilirubin Negative (NEGATIVE) 04/21/18 13:53 Urine Urobilinogen 2.0 mg/dL (0.2-1.0) 04/21/18 13:53 Ur Leukocyte Esterase Trace Stan/uL (Negative) H 04/21/18 13:53 Urine WBC (Auto) 23 /hpf (0-5) H 04/21/18 13:53 Urine RBC (Auto) 20 /hpf (0-3) H 04/21/18 13:53 Hyaline Casts 3-5 /lpf (0-2) H 04/21/18 13:53 Urine Opiates Screen Positive (NEGATIVE) H 04/21/18 13:53 Urine Methadone Screen Negative (NEGATIVE) 04/21/18 13:53 Ur Barbiturates Screen Negative (NEGATIVE) 04/21/18 13:53 Ur Phencyclidine Scrn Negative (NEGATIVE) 04/21/18 13:53 Ur Amphetamines Screen Negative (NEGATIVE) 04/21/18 13:53 U Benzodiazepines Scrn Positive (NEGATIVE) 04/21/18 13:53 U Oth Cocaine Metabols Negative (NEGATIVE) 04/21/18 13:53 U Cannabinoids Screen Negative (NEGATIVE) 04/21/18 13:53 Alcohol, Quantitative 40 mg/dl (0-10) H 04/21/18 11:11 Hepatitis A IgM Ab Negative (NEGATIVE) 04/25/18 14:35 Hep Bs Antigen Negative (NEGATIVE) 04/25/18 14:35 Hep B Core IgM Ab Negative (NEGATIVE) 04/25/18 14:35 Hepatitis C Antibody Negative (NEGATIVE) 04/25/18 14:35 Attending/Attestation - Attestation I have personally seen and examined this patient.: Yes I have fully participated in the care of the patient.: Yes I have reviewed all pertinent clinical information, including history, physical exam and plan: Yes Notes (Text): 04/29/18 15:43 Medical attending: Patient was seen and examined by me. Agree with the above note by the resident. The patient was walking around in the room when we entered. He was not in any acute distress. We had a long discussion again with regfernierds to the use of alcohol. The patient says he is willing to consider going to AA meetings and help groups after leaving here today. I wished him the best Mason Durán
== END 2018-04-29 15:30 | disposition home or self-care (01) | DRG 744 ==
LOC: C.ER 10:18 → C.7D 14:52 → C.3T 04-24 20:00
PROVIDERS: ADMIT Hospitalist; ATTEND Hospitalist
PROC: HZ2ZZZZ Detoxification Services for Substance Abuse Treatment (ICD-10-PCS; principal; 2018-04-21)
PROC: HZ59ZZZ Individual Psychotherapy for Substance Abuse Treatment, Supportive (ICD-10-PCS; 2018-04-21)
PROC: HZ46ZZZ Group Counseling for Substance Abuse Treatment, Psychoeducation (ICD-10-PCS; 2018-04-21)
PROC: GZ3ZZZZ Medication Management (ICD-10-PCS; 2018-04-21)
PROC: HZ80ZZZ Medication Management for Substance Abuse Treatment, Nicotine Replacement (ICD-10-PCS; 2018-04-21)
DX: F10.231 Alcohol dependence with withdrawal delirium (principal); R56.9 Unspecified convulsions; F11.23 Opioid dependence with withdrawal; F10.251 Alcohol dependence with alcohol-induced psychotic disorder with hallucinations; F41.9 Anxiety disorder, unspecified; G89.29 Other chronic pain; Y90.2 Blood alcohol level of 40-59 mg/100 ml; F17.210 Nicotine dependence, cigarettes, uncomplicated; R74.0 Nonspecific elevation of levels of transaminase and lactic acid dehydrogenase [LDH]

== ENCOUNTER 2018-09-10 22:17 | Emergency (ER) | payer SELFPAY ==
[2018-09-10] MEDS ORDERED: Sodium Chloride 0.9% 1,000 ML IV ONE (22:32)
--- NOTE | 2018-09-10 22:42 | C.PDOC ---
History Of Present Illness 47 yo male, hx of substance abuse, presnets for eval. brought from home via ems for erratic behavior. pt has long standing h/o of substance abues, opaite abuse. pt states "he smoked a cigarette earlier today". in er, pt at times very agited, yelling, "ayuda me ayda me", thrashing around stretcher. limited history provided. <Too Velazquez - Last Filed: 09/13/18 21:40> <Sivakumar Stubbs - Last Filed: 09/11/18 05:41> <Too Velazquez - Last Filed: 09/13/18 21:40> Time Seen by Provider: 09/10/18 22:23 Chief Complaint (Nursing): Substance Abuse Past Medical History Vital Signs: Last Vital Signs Temp 98.5 F 09/11/18 04:47 Pulse 77 09/11/18 04:47 Resp 20 09/11/18 04:47 BP 98/63 L 09/11/18 04:47 Pulse Ox 98 09/11/18 04:47 - [facility] Procedures DETOXIFICATION SERVICES FOR SUBSTANCE ABUSE TREATMENT (04/21/18) GROUP WIRE COATING MACHINE OPERATOR FOR SUBSTANCE ABUSE TREATMENT, PSYCHOEDUCATION (04/21/18) INDIV PSYCHOTHERAPY FOR SUBSTANCE ABUSE TREATMENT, SUPPORT (04/21/18) INDIV PSYCHOTHERAPY FOR SUBSTANCE ABUSE, COGNITIV BEHAVIORAL (08/08/17) INDIV PSYCHOTHERAPY FOR SUBSTANCE ABUSE, PSYCHOEDUCATION (08/08/17) MEDICATION MANAGEMENT (04/21/18) MEDS MGMT FOR SUBSTANCE ABUSE TREATMENT, NICOTINE REPLACE (04/21/18) PHARMACOTHERAPY FOR SUBSTANCE ABUSE, NICOTINE REPLACE (12/13/16) REPAIR UPPER LIP, EXTERNAL APPROACH (12/08/17) <Sivakumar Stubbs - Last Filed: 09/11/18 05:41> Reviewed: Historical Data, Nursing Documentation, Vital Signs Vital Signs: Last Vital Signs Temp 99.5 F 09/10/18 22:23 Pulse 133 H 09/10/18 22:23 Resp 28 H 09/10/18 22:23 BP 143/83 09/10/18 22:23 Pulse Ox 96 09/10/18 22:23 - Medical History PMH: Seizures (alcohol induced) Denies: Diabetes, Hepatitis, HIV, HTN, Chronic Kidney Disease, Sexually Transmitted Disease - [facility] Procedures DETOXIFICATION SERVICES FOR SUBSTANCE ABUSE TREATMENT (04/21/18) GROUP WIRE COATING MACHINE OPERATOR FOR SUBSTANCE ABUSE TREATMENT, PSYCHOEDUCATION (04/21/18) INDIV PSYCHOTHERAPY FOR SUBSTANCE ABUSE TREATMENT, SUPPORT (04/21/18) INDIV PSYCHOTHERAPY FOR SUBSTANCE ABUSE, COGNITIV BEHAVIORAL (08/08/17) INDIV PSYCHOTHERAPY FOR SUBSTANCE ABUSE, PSYCHOEDUCATION (08/08/17) MEDICATION MANAGEMENT (04/21/18) MEDS MGMT FOR SUBSTANCE ABUSE TREATMENT, NICOTINE REPLACE (04/21/18) PHARMACOTHERAPY FOR SUBSTANCE ABUSE, NICOTINE REPLACE (12/13/16) REPAIR UPPER LIP, EXTERNAL APPROACH (12/08/17) Family History: States: Unknown Family Hx - Social History Hx Tobacco Use: Yes (light smoker) Hx Alcohol Use: Yes Hx Substance Use: Yes - Immunization History Hx Tetanus Toxoid Vaccination: No Hx Influenza Vaccination: No Hx Pneumococcal Vaccination: No <Too Velazquez - Last Filed: 09/13/18 21:40> Review Of Systems Review Of Systems: ROS cannot be obtained secondary to pt's inabilty to answer questions. <Too Velazquez - Last Filed: 09/13/18 21:40> Physical Exam - Physical Exam Appears: Agitated (at times) Skin: Normal Color, Warm, Dry Head: Atraumatic, Normacephalic Eye(s): bilateral: Normal Inspection (b/l consricted), PERRL, EOMI Nose: Normal Throat: Normal Neck: Normal Cardiovascular: Rhythm Regular Respiratory: Normal Breath Sounds Gastrointestinal/Abdominal: Normal Exam, Soft, No Tenderness, No Guarding, No Rebound Back: Normal Inspection Extremity: Normal ROM <Too Velazquez - Last Filed: 09/13/18 21:40> ED Course And Treatment - Laboratory Results Result Diagrams: 09/10/18 23:02 09/10/18 23:02 Lab Results: Total Bilirubin 0.3 mg/dL (0.2-1.3) 09/10/18 23:02 AST 84 U/L (17-59) H 09/10/18 23:02 ALT 54 U/L (21-72) 09/10/18 23:02 Alkaline Phosphatase 74 U/L (38-126) 09/10/18 23:02 Total Protein 7.7 g/dL (6.3-8.3) 09/10/18 23:02 Albumin 4.6 g/dL (3.5-5.0) 09/10/18 23:02 Globulin 3.1 gm/dL (2.2-3.9) 09/10/18 23:02 Albumin/Globulin Ratio 1.5 (1.0-2.1) 09/10/18 23:02 Urine Color Yellow (YELLOW) 09/10/18 00:00 Urine Clarity Clear (Clear) 09/10/18 00:00 Urine pH 5.0 (5.0-8.0) 09/10/18 00:00 Ur Specific [place] 1.013 (1.003-1.030) 09/10/18 00:00 Urine Protein Negative mg/dL (NEGATIVE) 09/10/18 00:00 Urine Glucose (UA) Normal mg/dL (Normal) 09/10/18 00:00 Urine Ketones Negative mg/dL (NEGATIVE) 09/10/18 00:00 Urine Blood 1+ (NEGATIVE) H 09/10/18 00:00 Urine Nitrate Negative (NEGATIVE) 09/10/18 00:00 Urine Bilirubin Negative (NEGATIVE) 09/10/18 00:00 Urine Urobilinogen Normal mg/dL (0.2-1.0) 09/10/18 00:00 Ur Leukocyte Esterase Neg Stan/uL (Negative) 09/10/18 00:00 Urine WBC (Auto) < 1 /hpf (0-5) 09/10/18 00:00 Urine RBC (Auto) 6 /hpf (0-3) H 09/10/18 00:00 Hyaline Casts 3-5 /lpf (0-2) H 09/10/18 00:00 Pulse Ox Interpretation: Normal Reevaluation Time: 05:41 Reassessment Condition: Improved <Sivakumar Stubbs - Last Filed: 09/11/18 05:41> - Laboratory Results Result Diagrams: 09/10/18 23:02 09/10/18 23:02 O2 Sat by Pulse Oximetry: 96 <Too Velazquez - Last Filed: 09/13/18 21:40> Medical Decision Making Medical Decision Making: suspect substance bause - labs imaging pending ekg sinus tach [address] twave changes normal interval. case endorsed to night coordinator. penidng reassess final dispo. s/p ativan pt in nad. sleeping. <Too Velazquez - Last Filed: 09/13/18 21:40> Disposition Counseled Patient/Family Regarding: Studies Performed, Diagnosis, Need For Followup - Disposition Disposition Time: 05:42 <Sivakumar Stubbs - Last Filed: 09/11/18 05:41> <Too Velazquez - Last Filed: 09/13/18 21:40> - Disposition Disposition: HOME/ ROUTINE Condition: FAIR Instructions: Alcohol Abuse and Alcoholism (DC), Polysubstance Abuse (DC) Forms: [facility] ([employer]) - Clinical Impression Clinical Impression: Alcohol intoxication, Polysubstance (excluding opioids) dependence
[2018-09-10 23:05] LABS: BASO # 0.1 K/uL (0.0-0.2); BASO % 1.4 % (0.0-2.0); EOS # 0.1 K/uL (0.0-0.7); EOS % 1.1 % (0.0-4.0); HEMOGLOBIN 12.4 g/dL (12.0-18.0); LYMPH # 2.4 K/uL (1.0-4.3); LYMPH % 34.8 % (20.0-40.0); MEAN CORPUSCULAR HEMOGLOBIN 36.6 pg (27.0-31.0); MEAN CORPUSCULAR HGB CONC 33.9 g/dL (33.0-37.0); MEAN PLATELET VOLUME 6.9 fL (7.2-11.7); MONO # 0.9 K/uL (0.0-0.8); MONO % 13.4 % (0.0-10.0); NEUT # 3.4 K/uL (1.8-7.0); NEUT % 49.3 % (50.0-75.0); NRBC % 0.1 % (0.0-2.0); RBC 3.39 Mil/uL (4.40-5.90); RED CELL DISTRIBUTION WIDTH 13.7 % (11.5-14.5); WHITE BLOOD COUNT 6.9 K/uL (4.8-10.8)
[2018-09-10 23:18] LABS: ACETAMINOPHEN < 10.0 ug/mL (10.0-30.0); ALB/GLOB RATIO 1.5 (1.0-2.1); ALBUMIN 4.6 g/dL (3.5-5.0); ALT/SGPT 54 U/L (21-72); AST/SGOT 84 U/L (17-59); BLOOD UREA NITROGEN 12 mg/dL (9-20); CALCIUM 8.7 mg/dl (8.6-10.4); GFR NON-AFRICAN AMERICAN > 60; SALICYLATE < 1.0 mg/dL 1
[2018-09-10 23:24] VITALS: RESP 20
[2018-09-11 00:18] LABS: BARBITURATES, UR NEGATIVE (NEGATIVE); BENZODIAZEPINES, UR NEGATIVE (NEGATIVE); PHENCYCLIDINE, UR NEGATIVE (NEGATIVE)
[2018-09-11 00:22] LABS: OPIATES, UR POSITIVE (NEGATIVE)
[2018-09-11 00:51] LABS: URINE BILIRUBIN NEGATIVE (NEGATIVE); URINE BLOOD 1+ (NEGATIVE); URINE CLARITY Clear (Clear); URINE COLOR Yellow (YELLOW); URINE GLUCOSE (UA) NORMAL (Normal); URINE LEUKOCYTE ESTERASE NEG Leu/uL (Negative); URINE PROTEIN NEGATIVE (NEGATIVE); URINE UROBILINOGEN NORMAL mg/dL (0.2-1.0)
[2018-09-11 04:48] VITALS: BP 98/63; PULSE 77; TEMP 98.5
--- NOTE | 2018-09-11 11:34 | RAD ---
HISTORY: Detox/Psy COMPARISON: Chest x-ray performed 12/08/17 TECHNIQUE: Chest, one view. FINDINGS: LUNGS: No focal consolidation. Please note that chest x-ray has limited sensitivity for the detection of pulmonary masses. PLEURA: No significant pleural effusion identified. No definite pneumothorax . CARDIOVASCULAR: Heart size appears within normal limits. No significant atherosclerotic calcification present. OSSEOUS STRUCTURES: No acute osseous abnormality identified. VISUALIZED UPPER ABDOMEN: Unremarkable. OTHER FINDINGS: None. IMPRESSION: No focal consolidation.
--- NOTE | 2018-09-13 12:21 | CARD ---
APPROVED REPORT Date of service: 09/10/2018 EKG Measurement Heart [id number] <Conclusion> Sinus tachycardia Otherwise normal ECG
[2018-09-13 21:40] VITALS: O2SAT 96
== END 2018-09-11 06:01 | disposition home or self-care (01) ==
LOC: C.ER 22:17
DX: F10.129 Alcohol abuse with intoxication, unspecified (principal); F19.20 Other psychoactive substance dependence, uncomplicated; F17.210 Nicotine dependence, cigarettes, uncomplicated
CPT/HCPCS: 71045; 80053; 81001; 82550; 83735; 84100; 85025; 96361; 96374; 96375; 99285; G0480; J1885; J2060; J7030

== ENCOUNTER 2018-10-16 20:55 | Emergency (ER) | payer MEDICAID ==
--- NOTE | 2018-10-17 00:10 | C.PDOC ---
History Of Present Illness 47 year old male brought in for ETOH intoxication. Patient states he drank "more than a 12 pack" today and admits to heroin use today. He reports he has Hx of seizures and is suppose to be on medication but he does not have them, does not know how to take them, and does not recall which ones they are. No other complaints. <MickiepriscillaElen Reynaldo - Last Filed: 10/17/18 00:10> History Per: Patient History/Exam Limitations: no limitations Onset/Duration Of Symptoms: Hrs Current Symptoms Are (Timing): Still Present Suicide/Self Injury Attempted (Context): None Modifying Factor(s): Alcohol, Other (Heroin) Recent travel outside of the [place]: No <Elen Van - Last Filed: 10/17/18 00:10> <Sivakumar Stubbs - Last Filed: 10/17/18 05:54> Time Seen by Provider: 10/16/18 22:35 Chief Complaint (Nursing): Substance Abuse Past Medical History Reviewed: Historical Data, Nursing Documentation, Vital Signs Vital Signs: Last Vital Signs Temp 98.2 F 10/16/18 20:56 Pulse 88 10/16/18 22:02 Resp 23 10/16/18 22:02 BP 101/74 10/16/18 22:02 Pulse Ox 97 10/16/18 22:02 - Medical History PMH: Seizures (alcohol induced) Denies: Diabetes, Hepatitis, HIV, HTN, Chronic Kidney Disease, Sexually Transmitted Disease - [facility] Procedures DETOXIFICATION SERVICES FOR SUBSTANCE ABUSE TREATMENT (04/21/18) GROUP STERILE PROCESSING TECHNOLOGIST FOR SUBSTANCE ABUSE TREATMENT, PSYCHOEDUCATION (04/21/18) INDIV PSYCHOTHERAPY FOR SUBSTANCE ABUSE TREATMENT, SUPPORT (04/21/18) INDIV PSYCHOTHERAPY FOR SUBSTANCE ABUSE, COGNITIV BEHAVIORAL (08/08/17) INDIV PSYCHOTHERAPY FOR SUBSTANCE ABUSE, PSYCHOEDUCATION (08/08/17) MEDICATION MANAGEMENT (04/21/18) MEDS MGMT FOR SUBSTANCE ABUSE TREATMENT, NICOTINE REPLACE (04/21/18) PHARMACOTHERAPY FOR SUBSTANCE ABUSE, NICOTINE REPLACE (12/13/16) REPAIR UPPER LIP, EXTERNAL APPROACH (12/08/17) Family History: States: Unknown Family Hx - Social History Hx Tobacco Use: Yes (light smoker) Hx Alcohol Use: Yes Hx Substance Use: Yes - Immunization History Hx Tetanus Toxoid Vaccination: No Hx Influenza Vaccination: No Hx Pneumococcal Vaccination: No <Elen Van - Last Filed: 10/17/18 00:10> Vital Signs: Last Vital Signs Temp 98.3 F 10/17/18 05:44 Pulse 68 10/17/18 05:44 Resp 16 10/17/18 05:44 BP 106/57 L 10/17/18 05:44 Pulse Ox 95 10/17/18 05:44 - [facility] Procedures DETOXIFICATION SERVICES FOR SUBSTANCE ABUSE TREATMENT (04/21/18) GROUP STERILE PROCESSING TECHNOLOGIST FOR SUBSTANCE ABUSE TREATMENT, PSYCHOEDUCATION (04/21/18) INDIV PSYCHOTHERAPY FOR SUBSTANCE ABUSE TREATMENT, SUPPORT (04/21/18) INDIV PSYCHOTHERAPY FOR SUBSTANCE ABUSE, COGNITIV BEHAVIORAL (08/08/17) INDIV PSYCHOTHERAPY FOR SUBSTANCE ABUSE, PSYCHOEDUCATION (08/08/17) MEDICATION MANAGEMENT (04/21/18) MEDS MGMT FOR SUBSTANCE ABUSE TREATMENT, NICOTINE REPLACE (04/21/18) PHARMACOTHERAPY FOR SUBSTANCE ABUSE, NICOTINE REPLACE (12/13/16) REPAIR UPPER LIP, EXTERNAL APPROACH (12/08/17) <Sivakumar Stubbs - Last Filed: 10/17/18 05:54> Review Of Systems Constitutional: Negative for: Fever, Chills Cardiovascular: Negative for: Chest Pain, Palpitations Respiratory: Negative for: Cough, Shortness of Breath Gastrointestinal: Negative for: Nausea, Vomiting Neurological: Negative for: Weakness, Numbness <Elen Van - Last Filed: 10/17/18 00:10> Physical Exam - Physical Exam Appears: Non-toxic, Other (Awake, alert, intoxicated. Intermittently has spasms of his face and arms that last less than a second, sometimes accompanied by vocal outburst, no seizure activity noticed.) Skin: Normal Color, Warm Head: Atraumatic, Normacephalic Eye(s): bilateral: Normal Inspection, PERRL, EOMI Oral Mucosa: Moist Neck: Normal, Supple Chest: Symmetrical, No Tenderness Cardiovascular: Rhythm Regular Respiratory: Normal Breath Sounds, No Rales, No Rhonchi, No Wheezing Gastrointestinal/Abdominal: Soft, No Tenderness Extremity: Other (Moves all extremities) Neurological/Psych: Oriented x3, Normal Speech Gait: Steady <Elen Van - Last Filed: 10/17/18 00:10> ED Course And Treatment O2 Sat by Pulse Oximetry: 97 (Room air) Pulse Ox Interpretation: Normal <Elen Van - Last Filed: 10/17/18 00:10> Pulse Ox Interpretation: Normal Reevaluation Time: 05:54 Reassessment Condition: Improved <ClaratajSivakumar - Last Filed: 10/17/18 05:54> Medical Decision Making Medical Decision Making: Plan: * Geodon * Ativan <Chito Vanya Reynaldo - Last Filed: 10/17/18 00:10> Disposition <Elen Van - Last Filed: 10/17/18 00:10> Counseled Patient/Family Regarding: Studies Performed, Diagnosis, Need For Followup - Disposition Disposition Time: 05:53 <Sivakumar Stubbs - Last Filed: 10/17/18 05:54> - Disposition Referrals: [facility] [Outside] Disposition: HOME/ ROUTINE Condition: FAIR Instructions: Polysubstance Abuse (DC) Forms: [employer] (Russian) - Clinical Impression Clinical Impression: Polysubstance abuse - Scribe Statement The provider has reviewed the documentation as recorded by the Scribe Ant Sadler All medical record entries made by the Scribe were at my direction and personally dictated by me. I have reviewed the chart and agree that the record accurately reflects my personal performance of the history, physical exam, medical decision making, and the department course for this patient. I have also personally directed, reviewed, and agree with the discharge instructions and disposition. <MickieElen wells Reynaldo - Last Filed: 10/17/18 00:10>
[2018-10-17 05:45] VITALS: BP 106/57; PULSE 68; RESP 16; TEMP 98.3; O2SAT 95
== END 2018-10-17 06:11 | disposition home or self-care (01) ==
LOC: C.ER 20:55
DX: F19.10 Other psychoactive substance abuse, uncomplicated (principal)
CPT/HCPCS: 82948; 96372; 99285; J2060; J3486